=== PATIENT | female | born 1970 | race Caucasian/White ===

== ENCOUNTER 2018-11-27 11:24 | Outpatient (REF) | payer BC, SELFPAY | END 2018-11-27 11:44 | LOC: LBN 11:24 | PROVIDERS: PCP Internal Medicine; Visit Provider Internal Medicine | DX: N89.8 Other specified noninflammatory disorders of vagina (principal) | CPT/HCPCS: 87480; 87510; 87660 ==

== ENCOUNTER 2019-11-15 09:15 | Outpatient (CLI) | payer BC, SELFPAY ==
[2019-11-22 10:20] LABS: SARS-CoV-2 RNA Undetected (Undetected)
== END 2019-11-15 09:35 ==
PROVIDERS: PCP Internal Medicine; Visit Provider Nurse Practitioner
DX: Z11.59 Encounter for screening for other viral diseases (principal)
CPT/HCPCS: U0003

== ENCOUNTER 2020-05-12 01:41 | Outpatient (CLI) | payer BC, SELFPAY ==
--- NOTE | 2020-05-12 | DI.RAD_ITS ---
EXAM: XR EYE FOREIGN BODY INDICATION: PRE MRI CLEARANCE,PTOSIS RT EYELID,H02.401. COMPARISON: No exams were available for comparison TECHNIQUE: 2D digital imaging was performed. FINDINGS: No radiopaque foreign bodies are seen in the orbits. IMPRESSION: DATA REPOSITORY: RADIATION DOSE DELIVERED:
--- NOTE | 2020-05-12 09:15 | DI.MRI_ITS ---
CLINICAL HISTORY: HORNERS SYNDROME,HEADACHES,PTOSIS RT EYELID,ANISOCORIA. TECHNIQUE: Multiplanar multisequence MRA of the brain was performed. COMPARISON: None. FINDINGS: Carotid Arteries: No aneurysm, occlusion or significant stenosis. Anterior Cerebral Arteries: Right: No aneurysm, occlusion or significant stenosis. Left: No aneurysm, occlusion or significant stenosis. Middle Cerebral Arteries: Right: No aneurysm, occlusion or significant stenosis. Left: No aneurysm, occlusion or significant stenosis. Posterior Cerebral Arteries: Right: No aneurysm, occlusion or significant stenosis. The right PCOM is present which is a normal v ariant. Left: No aneurysm, occlusion or significant stenosis. The left STATISTICAL PROGRAMMER ANALYST arises from the left PCOM which i s a normal variant. Vertebral Arteries: Right: No aneurysm, occlusion or significant stenosis. There is a dominant right vertebral artery. Left: No aneurysm, occlusion or significant stenosis. Basilar Artery: No aneurysm, occlusion or significant stenosis. IMPRESSION: No aneurysm, occlusion or significant stenosis. DATA REPOSITORY:
--- NOTE | 2020-05-12 10:05 | DI.MRI_ITS ---
EXAM: MR BRAIN WO/W CLINICAL HISTORY: HORNERS SYNDROME,G90.2,HEADACHES,R51.9,PTOSIS RT EYELID,H02.401 TECHNIQUE: Multiplanar multisequence MRI of the brain was performed. CONTRAST MATERIAL: IV Contrast: 15 ML of Dotarem contrast administered. COMPARISON: MR MR ANGIO BRAIN WO from 05/12/2020 FINDINGS: VENTRICLES AND EXTRA AXIAL SPACES: Normal in size and morphology for the patient's age. HEMORRHAGE: None. CEREBRAL PARENCHYMA: No focus of restricted diffusion to suggest acute infarct. No space-occupying le shante identified. MIDLINE SHIFT: None. BRAINSTEM/CEREBELLUM: Normal. CALVARIUM: Normal. ENHANCEMENT: No suspicious enhancement identified. VISUALIZED PARANASAL SINUSES/MASTOIDS: Clear. STEBBINS OF [place]: Normal flow void. PITUITARY GLAND: Unremarkable. OTHER FINDINGS: IMPRESSION: Unremarkable MRI of the brain. DATA REPOSITORY:
[2020-05-12] MEDS: Gadoterate meglumine 20 ML VIAL 15 ML IVP (10:11)
== END 2020-05-12 02:01 ==
PROVIDERS: PCP Internal Medicine; Visit Provider Ophthalmology Neuro-ophthalmology
DX: G90.2 Horner's syndrome (principal); R51.9 Headache, unspecified; H02.401 Unspecified ptosis of right eyelid
CPT/HCPCS: 70544; 70553; 70030

== ENCOUNTER 2020-05-15 04:25 | Outpatient (CLI) | payer BC, SELFPAY ==
--- NOTE | 2020-05-15 | DI.MRI_ITS ---
EXAM: MR ANGIO NECK W CLINICAL HISTORY: HORNERS SYNDROME,HEADACHE BEHIND THE EYES,PTOSIS RT EYELID,ANISOCORIA. TECHNIQUE: Multiplanar multisequence MRA of the Neck was performed. COMPARISON: No exams were available for comparison FINDINGS: Common Carotid: Right: No dissection, occlusion or significant stenosis. Left: No dissection, occlusion or significant stenosis. External Carotid: Right: No evidence of occlusion or significant stenosis. Left: No evidence of occlusion or significant stenosis. Extracranial internal Carotid: Right: No dissection, occlusion or significant stenosis. Left: No dissection, occlusion or significant stenosis. Vertebral Artery: Right: No dissection, occlusion or significant stenosis. There is a dominant right vertebral artery. Left: No dissection, occlusion or significant stenosis. The left vertebral artery is small in caliber throughout but otherwise unremarkable. The visualized paraspinal soft tissues are unremarkable. IMPRESSION: 1. No evidence of dissection, occlusion or significant stenosis. 2. There is a dominant right vertebral artery. The left vertebral artery is small in caliber through out but otherwise unremarkable. DATA REPOSITORY:
[2020-05-15] MEDS: Gadoterate meglumine 20 ML VIAL 15 ML IVP (10:08)
== END 2020-05-15 04:45 ==
PROVIDERS: PCP Internal Medicine; Visit Provider Ophthalmology Neuro-ophthalmology
DX: G90.2 Horner's syndrome (principal); R51.9 Headache, unspecified; H02.401 Unspecified ptosis of right eyelid
CPT/HCPCS: 70548

== ENCOUNTER 2020-08-18 03:39 | Outpatient (CLI) | payer BC, SELFPAY ==
[2020-08-18 08:06] LABS: HCT 39.7 % (36.0-46.0); HGB 13.1 g/dL (11.2-15.7); MCH 30.7 pg (27.0-33.0); MPV 9.5 fL (8.0-11.0); Platelet Count 302 10^3/uL (130-400); RBC 4.27 10^6/uL (3.93-5.22); RDW 12.4 % (11.7-14.6); RDW-SD 42.7 fL
[2020-08-18 09:29] LABS: ALT 34 U/L (14-59); AST 20 U/L (15-37); Albumin 3.8 g/dL (3.4-5.0); Alkaline Phosphatase 117 U/L (46-116); Anion Gap 6.2 mmol/L (3-11); BUN 13 mg/dL (7-18); Bilirubin, Total 0.2 mg/dL (0.2-1.0); CO2 29.8 mmol/L (21.0-32.0); Calcium 9.9 mg/dL (8.5-10.1); Calculated LDL 141 mg/dL (<100); Chloride 105 mmol/L (98-107); Cholesterol 230 mg/dL (<200); Estimated GFR 58.93 (mL/min/1.73m2); Glucose 103 mg/dL (74-106); HDL Cholesterol 77 mg/dL (40-60); Potassium 4.3 mmol/L (3.5-5.1); Sodium 141 mmol/L (136-145); Total Protein 7.2 g/dL (6.4-8.2); Triglyceride 63 mg/dL (<150)
[2020-08-19 10:10] LABS: HIV-1/2 Ag & Ab Screen Negative (Negative)
[2020-08-19 10:23] LABS: Hepatitis C Ab w Rflx HCV PCR Negative (Negative)
[2020-08-20 05:26] LABS: Vitamin D 25 Total 29.7 ng/mL (30-100)
== END 2020-08-18 03:40 | disposition home or self-care (01) ==
LOC: LBO 03:39
PROVIDERS: PCP Internal Medicine; Visit Provider Internal Medicine
DX: E04.9 Nontoxic goiter, unspecified (principal); Z13.220 Encounter for screening for lipoid disorders; Z13.228 Encounter for screening for other metabolic disorders; Z13.21 Encounter for screening for nutritional disorder; Z13.0 Encounter for screening for diseases of the blood and blood-forming organs and certain disorders involving the immune mechanism; Z11.4 Encounter for screening for human immunodeficiency virus [HIV]; Z11.59 Encounter for screening for other viral diseases
CPT/HCPCS: 36415; 80053; 80061; 82306; 85027; 86803; 87389; 84443

== ENCOUNTER 2020-09-10 02:30 | Outpatient (CLI) | payer BC, SELFPAY ==
--- NOTE | 2020-09-10 07:30 | DI.MAMMO_ITS ---
Exam(s) MAMMO SCREENING EXAM: MAMMO SCREENING CLINICAL HISTORY: screening,Z12.39 TECHNIQUE: Mammograms were interpreted according to the usual protocol including computer analysis w [facility] CAD system, tomosynthesis and C-view imaging. COMPARISON: FINDINGS: The breasts are of moderate density with fairly symmetrical distribution fibroglandular tissue. No d ominant mass or clumped microcalcification is identified in either breast. Examination is compared w [facility] prior mammogram of March 2014. There is a new lobulated nodule of the retroareolar portion of the right breast about 3 cm from the nipple, this measures about 6 millimeters in diameter, the bord er is not ideally defined. Additional evaluation with spot compression views and breast ultrasound r ecommended for further characterization. No other significant change seen. IMPRESSION: Additional mammographic views of the right breast and right breast ultrasound requested as described above to evaluate a retroareolar lobulated nodule. BI-RADS Category 0 - Assessment Incomplete: Need additional imaging evaluation Breast Density - Category B - Scattered areas of fibroglandular density
== END 2020-09-10 02:50 ==
PROVIDERS: PCP Internal Medicine; Visit Provider Internal Medicine
DX: Z12.31 Encounter for screening mammogram for malignant neoplasm of breast (principal); R92.8 Other abnormal and inconclusive findings on diagnostic imaging of breast
CPT/HCPCS: 77063; 77067

== ENCOUNTER 2020-09-15 02:25 | Outpatient (CLI) | payer BC, SELFPAY ==
--- NOTE | 2020-09-15 | DI.US_ITS ---
Exam(s) MG MAMMO SCREEN CALL BACK UNI US BREAST RT LIMITED EXAM: MG MAMMO SCREEN CALL BACK UNI CLINICAL HISTORY: F/U ABNL MAMMO, RETROAREOLAR LOBULATED NODULE ABOUT 3 CM FROM NIPPLE TECHNIQUE: Mammograms were interpreted according to the usual protocol including computer analysis w ith CAD system, tomosynthesis and C-view imaging. COMPARISON: FINDINGS: Additional mammographic views of the right breast and right breast ultrasound are interpreted in conj unction. These examinations were obtained to evaluate lobulated 7 millimeter in diameter nodule seen on recent mammogram. Spot compression views confirm a well-circumscribed lobulated nodule. Breast ultrasound shows a group of small cysts corresponding in location to the mammographically identified mass. No Doppler abnormality identified in this area. The group of cysts cysts has an overall measu rement 7 millimeters and contains some internal echoes. No additional mass identified. IMPRESSION: Findings as described above are consistent with benign process, apparently a group of small cysts. F ollow-up mammogram of the right breast recommended in 6 months. BI-RADS Category 3 - 6 month - Probably Benign Finding: Recommend follow-up mammography in 6 months Breast Density - Category B - Scattered areas of fibroglandular density
== END 2020-09-15 02:45 ==
PROVIDERS: PCP Internal Medicine; Visit Provider Internal Medicine
DX: Z12.31 Encounter for screening mammogram for malignant neoplasm of breast (principal); R92.8 Other abnormal and inconclusive findings on diagnostic imaging of breast; N60.11 Diffuse cystic mastopathy of right breast
CPT/HCPCS: 76642; 77063; 77067

== ENCOUNTER 2021-03-18 01:25 | Outpatient (CLI) | payer BC, SELFPAY ==
--- NOTE | 2021-03-18 09:30 | DI.MAMMO_ITS ---
Exam(s) MG MAMMO DIAGNOSTIC UNI EXAM: MAMMO DIAGNOSTIC UNI CLINICAL HISTORY: F/U ABNL MAMMO, 6 MO F/U, RE-EVLAUATE CYSTS/NODULES. TECHNIQUE: Craniocaudal and mediolateral oblique Full Field Digital Mammography views of the breast with Computer Aided Diagnosis followed by Tomosynthesis. COMPARISON: 2013 through September 2020 FINDINGS: Mammography/Tomosynthesis: Masses/Architectural Distortion: Stable smoothly marginated lobulated nodule. Microcalcifictions: No suspicious pleomorphic-type are seen. Skin Thickening/Nipple Retraction: None. IMPRESSION: 1. No evidence of malignancy is noted. 2. Unless there is more urgent need, follow-up screening mammography is recommended, as per [employer] guidelines. 3. The findings were discussed with the patient on the date of the examination. BI-RADS Category 2 - Benign Findings Breast Density - Category B - Scattered areas of fibroglandular density A negative radiographic report should not delay biopsy if a dominant or clinically suspicious mass is present. Up to ten percent of cancers are not identified on mammography. A negative report may reinforce clinical impression. Adenosis and dense breasts may obscure an underlying neoplasm. False positive reports average 6 to 10%. Patient will receive a letter notifying them of these results.
== END 2021-03-18 01:45 ==
PROVIDERS: PCP Internal Medicine; Visit Provider Internal Medicine
DX: N63.10 Unspecified lump in the right breast, unspecified quadrant (principal)
CPT/HCPCS: 77061; 77065; G0279

== ENCOUNTER 2021-06-16 13:04 | Outpatient (REF) | payer BC, SELFPAY ==
[2021-06-17 14:11] LABS: COVID-19 RT-PCR UVMMC Result Negative (Negative)
== END 2021-06-16 13:05 | disposition home or self-care (01) ==
LOC: NCHCN 13:04
PROVIDERS: PCP Internal Medicine; Visit Provider Physician Assistant Medical
DX: Z20.822 Contact with and (suspected) exposure to COVID-19 (principal); R19.7 Diarrhea, unspecified
CPT/HCPCS: U0003

== ENCOUNTER 2021-08-09 19:50 | Emergency (ER) | payer BC, SELFPAY ==
[2021-08-09 20:17] VITALS: RESP 14
--- NOTE | 2021-08-09 21:00 | DI.CT_ITS ---
Exam(s) CT NECK W EXAM: CT NECK W CLINICAL HISTORY: Thyroid nodules, trouble swallowing. TECHNIQUE: Imaging Protocol: Axial computed tomography images with coronal and sagittal reformatted images were created and reviewed. CONTRAST MATERIAL: Intravenous: Omnipaque 350 Contrast volume:100mL COMPARISON: US US THYROID from 08/27/2020 FINDINGS: Orbits and orbital soft tissues: Within normal limits. Visualized paranasal sinuses: Within normal limits. Nasopharynx: Within normal limits. Oropharynx: Within normal limits. Hypopharynx: Within normal limits. Larynx: Within normal limits. Retropharyngeal space: Within normal limits. Parotids/submandibular: Within normal limits. Thyroid gland: Several tiny hypodensities within the thyroid gland. The largest is in the left lobe and measures 1.5 cm long. This is consistent with a left thyroid nodule seen on the ultrasound from 08/27/2020. Lymphadenopathy: There is scattered lymph nodes seen along the level one to level three all measurin g less than 8 mm in short axis diameter which are physiologic in nature. Trachea: Within normal limits. No narrowing or tracheal deviation. Lung apices: Within normal limits. Bones: Within normal limits for the patient's age. Carotids/Jugular: Within normal limits. Soft tissues: Within normal limits. IMPRESSION: 1. No acute abnormality. The airway is patent. No tracheal narrowing or deviation. 2. Multiple thyroid nodules. These are best characterized on the ultrasound of the neck from 08/28/19. RADIATION DOSE DELIVERED: 501.15mGy.cm Total DLP DATA REPOSITORY: All CT scans at this facility are submitted to the National Radiology Data Registry (NRDR) Dose Index Registry (DIR) with the [employer] (ACR). RADIATION OPTIMIZATION: All CT scans at this facility use at least one of these dose optimization te chniques: automated exposure control; mA and/or kV adjustment per patient size (includes targeted exa ms where dose is matched to clinical indication); or iterative reconstruction.
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
[2021-08-09] MEDS: Dexamethasone 10 MG/ML VIAL PO (21:21)
[2021-08-09 21:30] LABS: Abs Immature Grans 0.01 10^3/uL (0.0-0.06); Absolute Basophil Count 0.04 10^3/uL (0.0-0.2); Absolute Eosinophil Count 0.11 10^3/uL (0.0-0.7); Absolute Lymphocyte Count 2.65 10^3/uL (1.2-3.4); Absolute Monocyte Count 0.45 10^3/uL (0.1-0.8); Absolute Neutrophil Count 3.55 10^3/uL (1.2-6.7); Basophils % 0.6; Eosinophils % 1.6; HCT 43.8 % (36.0-46.0); HGB 14.1 g/dL (11.2-15.7); Immature Grans % 0.1; Lymphocytes % 38.9; MCH 29.4 pg (27.0-33.0); MCHC 32.2 % (32.0-36.0); MCV 91.4 fL (80-95); MPV 10.1 fL (8.0-11.0); Monocytes % 6.6; Neutrophils % 52.2; Nucleated RBC 0 %; Platelet Count 344 10^3/uL (130-400); RBC 4.79 10^6/uL (3.93-5.22); RDW 12.5 % (11.7-14.6); RDW-SD 41.9 fL; WBC 6.81 10^3/uL (4.4-10.8)
[2021-08-09 21:52] LABS: ALT 39 U/L (14-59); AST 24 U/L (15-37); Albumin 4.4 g/dL (3.4-5.0); Alkaline Phosphatase 131 U/L (46-116); Anion Gap 7.5 mmol/L (3-11); BUN 13 mg/dL (7-18); Bilirubin, Total 0.3 mg/dL (0.2-1.0); CO2 28.5 mmol/L (21.0-32.0); CREATININE 1.1 mg/dL (0.55-1.02); Calcium 10.5 mg/dL (8.5-10.1); Chloride 101 mmol/L (98-107); Estimated GFR 52.58 (mL/min/1.73m2); Glucose 96 mg/dL (74-106); Potassium 3.7 mmol/L (3.5-5.1); Sodium 137 mmol/L (136-145); Total Protein 8.4 g/dL (6.4-8.2)
[2021-08-09] MEDS: Omnipaque 350 MG/ML 100 ML BTL IJ (21:57)
[2021-08-09] MEDS: Normal Saline Flush 10 ML SYR IVP (21:58)
--- NOTE | 2021-08-09 21:59 | DI.VRAD_ITS ---
PROCEDURE INFORMATION: Exam: CT Neck With Contrast Exam date and time: 08/09/2021 9:32 PM Age: 51 years old Clinical indication: Other: Thyroid nodules, trouble swallowing TECHNIQUE: Imaging protocol: Computed tomography images of the neck with contrast. Radiation optimization: All CT scans at this facility use at least one of these dose optimization techniques: automated exposure control; mA and/or kV adjustment per patient size (includes targeted exams where dose is matched to clinical indication); or iterative reconstruction. Contrast material: OMNIPAQUE 350; Contrast volume: 100 ml; Contrast route: INTRAVENOUS (IV); COMPARISON: US THYROID 08/27/2020 12:57 PM FINDINGS: Mastoid air cells: Visualized mastoid air cells are well aerated. Paranasal sinuses: Visualized paranasal sinuses are well aerated. Nasopharynx: Unremarkable. Oropharynx: Unremarkable. No significant tonsillar enlargement. Hypopharynx: Unremarkable. Larynx: Unremarkable. Normal epiglottis. Retropharyngeal space: Unremarkable. Submandibular/Parotid glands: Unremarkable. Thyroid: The thyroid gland is normal in size and contains multiple subcentimeter hypoattenuating nodules. Lymph nodes: Unremarkable. No pathologically enlarged lymph nodes. Trachea: Patent and unremarkable in appearance. Lungs: Dependent hypoventilatory changes. Otherwise unremarkable as visualized. Bones/joints: Degenerative changes in the cervical spine. No suspicious osseous lesions. Soft tissues: Unremarkable. No significant soft tissue swelling. No soft tissue mass or fluid collection IMPRESSION: 1. No acute or suspicious abnormality in the soft tissues of the neck. The airway is patent. No significant soft tissue swelling. 2. Normal-sized thyroid gland containing multiple subcentimeter thyroid nodules, better characterized on the comparison thyroid ultrasound. Dictated and Authenticated by: Araceli Farrell MD. Ordering:MICHELLE Carey MD
[2021-08-10 00:35] VITALS: RESP 14
[2021-08-11 11:35] LABS: COVID-19 RT-PCR UVMMC Result Negative (Negative)
== END 2021-08-10 00:32 | disposition home or self-care (01) ==
PROVIDERS: Emergency Provider Registered Nurse Emergency; PCP Internal Medicine
DX: J02.9 Acute pharyngitis, unspecified (principal); E04.2 Nontoxic multinodular goiter; Z20.822 Contact with and (suspected) exposure to COVID-19
CPT/HCPCS: 36415; 70491; 80053; 87880; 99284; 99285; U0003; 85025; 87081; J1100; J3490

== ENCOUNTER 2021-12-15 03:14 | Outpatient (CLI) | payer OTHER, SELFPAY ==
[2021-12-16 23:23] LABS: Parathyroid Hormone,Intact 51 pg/mL (19-88)
== END 2021-12-15 03:15 | disposition home or self-care (01) ==
LOC: LBO 03:14
PROVIDERS: PCP Internal Medicine; Visit Provider Family Medicine
DX: E83.52 Hypercalcemia (principal)
CPT/HCPCS: 36415; 83970

== ENCOUNTER 2022-01-25 16:17 | Outpatient (REF) | payer OTHER, SELFPAY ==
--- NOTE | 2022-01-25 15:50 | PAPFT_PTH ---
PATIENT: Barbara Braxton LOC: [facility] U#:[id number] AGE/SX: 52/F ROOM: RE01/25/[address]: Wilfredo Morgan DO : 1970 BED: DIS: 01/25/2022 SPEC #: [id number] RECD: 01/26/22 13:21 STATUS: REUBEN REQ #: [id number] CRISTAL: 01/25/22 15:[address]: Wilfredo Morgan DEPT: [facility] Cytology RECD BY: Ashleigh Jeff ENTERED: 01/26/22 13:22 SP TYPE: PAPFT OTHR DR: Dahlia Gurrola MD Tissues: 1 - CX/ENDOCX FOR PAP SMEARS Procedures: PAP THIN PREP/UVM Screening HPV DNA PROBE Comments: [id number]
== END 2022-01-25 16:18 | disposition home or self-care (01) ==
LOC: LBN 16:17
PROVIDERS: PCP Internal Medicine; Visit Provider Family Medicine
DX: Z12.4 Encounter for screening for malignant neoplasm of cervix (principal); Z11.51 Encounter for screening for human papillomavirus (HPV)
CPT/HCPCS: 88142; 87624

== ENCOUNTER → 2022-01-26 12:30 | Outpatient (CLI) | payer OTHER, SELFPAY ==
--- NOTE | 2022-01-26 13:45 | DI.RAD_ITS ---
Exam(s) XR KNEE RT 3V AP,LAT,NINA EXAM: XR KNEE RT 3V AP,LAT,NINA CLINICAL HISTORY: Likely LCL tear,? Fx, rt knee pain, m25.561. TECHNIQUE: 2D digital imaging was performed. COMPARISON: No exams were available for comparison FINDINGS: 3 views No evidence of fracture nor obvious joint effusion. Bone density normal. No osseous lesions. No hank int space narrowing. IMPRESSION: No significant findings. DATA REPOSITORY: RADIATION DOSE DELIVERED:
== END ==
PROVIDERS: PCP Family Medicine; Visit Provider Family Medicine
DX: M25.561 Pain in right knee (principal)
CPT/HCPCS: 73562

== ENCOUNTER 2022-01-28 07:29 | Emergency (ER) | payer OTHER, SELFPAY ==
[2022-01-28 07:39] VITALS: BP 149/73; PULSE 90; RESP 20; TEMP 36.6; O2SAT 98
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
[2022-01-28] MEDS: CLINDAMYCIN 600 MG/50 ML BAG 100 MG IVPB (08:10)
[2022-01-28] MEDS: Ketorolac 15 MG/ML VIAL IVP (08:10)
[2022-01-28 08:18] LABS: Abs Immature Grans 0.02 10^3/uL (0.0-0.06); Absolute Basophil Count 0.03 10^3/uL (0.0-0.2); Absolute Eosinophil Count 0.12 10^3/uL (0.0-0.7); Absolute Lymphocyte Count 1.47 10^3/uL (1.2-3.4); Absolute Monocyte Count 0.51 10^3/uL (0.1-0.8); Absolute Neutrophil Count 7.02 10^3/uL (1.2-6.7); Basophils % 0.3; Eosinophils % 1.3; HCT 39.2 % (36.0-46.0); HGB 12.7 g/dL (11.2-15.7); Immature Grans % 0.2; MCH 29.6 pg (27.0-33.0); MCHC 32.4 % (32.0-36.0); MCV 91 fL (80-95); MPV 9.5 fL (8.0-11.0); Monocytes % 5.6; Neutrophils % 76.6; Platelet Count 306 10^3/uL (130-400); RBC 4.29 10^6/uL (3.93-5.22); RDW 12.6 % (11.7-14.6); RDW-SD 42.1 fL; WBC 9.17 10^3/uL (4.4-10.8)
[2022-01-28] MEDS: Ondansetron 4 MG/2 ML VIAL IVP (08:29)
[2022-01-28] MEDS: MORPHine 4 MG/ML SYR IVP (08:29)
[2022-01-28] MEDS: Acetaminophen 325 MG TAB 650 MG PO (09:19)
[2022-01-28 10:00] LABS: ALT 28 U/L (14-59); AST 14 U/L (15-37); Albumin 3.6 g/dL (3.4-5.0); Alkaline Phosphatase 131 U/L (46-116); Anion Gap 6.6 mmol/L (3-11); BUN 10 mg/dL (7-18); Bilirubin, Total 0.4 mg/dL (0.2-1.0); CO2 28.4 mmol/L (21.0-32.0); CREATININE 0.9 mg/dL (0.55-1.02); Calcium 10.4 mg/dL (8.5-10.1); Chloride 105 mmol/L (98-107); Glucose 102 mg/dL (74-106); Potassium 3.5 mmol/L (3.5-5.1); Sodium 140 mmol/L (136-145); Total Protein 7.5 g/dL (6.4-8.2)
[2022-01-28 10:37] VITALS: BP 121/64; PULSE 75; RESP 16; TEMP 36.6; O2SAT 98
--- NOTE | 2022-01-29 07:23 | NUR.NOTE ---
Nursing Note: Pt called ED stating that the antibiotic she was sent home with yesterday has caused her nausea/vomiting. She is unsure if she ate before taking the antibiotic dose. She was advised to try eating something and waiting before taking another dose to see if it helps. She was told if her symptoms worsen and she feels like she needs to be seen that she can come back to the ED.
== END 2022-01-28 10:40 | disposition home or self-care (01) ==
PROVIDERS: Emergency Provider Emergency Medicine; PCP Family Medicine
DX: L02.415 Cutaneous abscess of right lower limb (principal); L03.115 Cellulitis of right lower limb; Z87.891 Personal history of nicotine dependence
CPT/HCPCS: 10060; 36415; 80053; 87040; 96365; 96375; 99284; 85025; J1885; J2270; J2405

== ENCOUNTER 2022-02-09 17:18 | Outpatient (REF) | payer OTHER, SELFPAY | END 2022-02-09 17:19 | disposition home or self-care (01) | LOC: LBN 17:18 | PROVIDERS: PCP Family Medicine; Visit Provider Physician Assistant Medical | DX: L03.115 Cellulitis of right lower limb (principal) | CPT/HCPCS: 87070; 87205 ==

== ENCOUNTER 2022-10-17 13:22 | Outpatient (CLI) | payer OTHER, SELFPAY ==
[2022-10-17 12:24] LABS: TSH (W/Ref FT4) 0.66 uIU/mL (0.36-3.74)
== END 2022-10-17 13:23 | disposition home or self-care (01) ==
LOC: LBO 13:25
PROVIDERS: PCP Family Medicine; Visit Provider Otolaryngology
DX: E04.2 Nontoxic multinodular goiter (principal)
CPT/HCPCS: 36415; 84443

== ENCOUNTER 2022-11-17 15:55 | Emergency (ER) | payer OTHER, SELFPAY ==
[2022-11-17 16:04] VITALS: BP 139/88; PULSE 78; RESP 16; TEMP 36.8; O2SAT 98
--- NOTE | 2022-11-17 17:00 | RT.EKG_ITS ---
APPROVED REPORT Exam: Resting ECG Reason for Exam: dizzy Patient Location: E HR:76 bpm ECG Measurements Heart Rate 76 AXIS VT 148 P 49 QRSd 143 QRS 93 QT 410 T 3 QTc 462 Conclusion Sinus rhythm...normal P axis, V-rate 60- 99 RBBB and LPFB...QRSd >120mS, axis(90,210)
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
[2022-11-17] MEDS: Ketorolac 30 MG/ML VIAL IVP (17:51)
[2022-11-17] MEDS: Prochlorperazine 10 MG/2 ML VIAL IVP (17:52)
[2022-11-17] MEDS: diphenhydrAMINE 50 MG/ML VIAL 25 MG IVP (17:52)
[2022-11-17 19:55] VITALS: BP 133/78; PULSE 64; RESP 18; O2SAT 97
== END 2022-11-17 20:05 | disposition home or self-care (01) ==
PROVIDERS: Emergency Provider Emergency Medicine; PCP Family Medicine
DX: G43.909 Migraine, unspecified, not intractable, without status migrainosus (principal); I45.2 Bifascicular block
CPT/HCPCS: 36415; 93005; 96374; 96375; 99283; 93010; J0780; J1200; J1885

== ENCOUNTER 2022-11-22 01:32 | Outpatient (CLI) | payer OTHER, SELFPAY ==
--- NOTE | 2022-11-22 07:45 | DI.US_ITS ---
Exam(s) US NEEDLE LOCAL OTHER WO RAD EXAM: tr 5 lesion,multinodular goiter, ultrasound guided bx,e04.2 COMPARISON: No exams were available for comparison TECHNIQUE: Ultrasound performed using standard protocol. FINDINGS: Sonography was provided for Dr. Sheffield during the performance of a ultrasound-guided thyroid biopsy. Please refer to the procedure report for complete details. DATA REPOSITORY:
--- NOTE | 2022-11-22 12:40 | PAPNONF_PTH ---
PATIENT: Barbara Braxton LOC: [facility] U#:[id number] AGE/SX: 52/F ROOM: RE11/22/[address]: Steve Sheffield MD : 1970 BED: DIS: 11/22/2022 SPEC #: [id number] RECD: 11/22/22 13:15 STATUS: REUBEN REQ #: [id number] CRISTAL: 11/22/22 12:[address]: Steve Sheffield DEPT: [facility] Cytology RECD BY: Valeria Bokyin ENTERED: 11/22/22 13:17 SP TYPE: CRYSTAL CHUA DR: Wilfredo Morgan DO Tissues: 1 - BODY FLUID CYTO-FINE NEEDLE ASPIRATE-[facility] Procedures: BODY FLUID CYTO-FINE NEEDLE ASPIRATE-[facility] Comments: [id number] (PATH FNA CONSULT) (REFRIGERATED)
--- NOTE | 2022-11-22 13:06 | W.PROCNOTE ---
Date of service: 11/22/22 Time of Service: 13:06 Procedure Note Date of procedure: 11/22/22 Procedure: Ultrasound-guided FNA, left thyroid nodule, pathology present Surgeon/Proceduralist/Physician: Steve Sheffield Procedure Diagnosis: Thyroid nodule, TR 5 greater than 1 cm Procedure Indications: Patient with a left-sided TR 5 lesion measuring greater than 1 cm in diameter. Options were explained to the patient regarding further management. She elected undergo the above procedure. Consent was filled out and signed prior to the procedure Procedure Description: The patient was positioned in a supine position with her head slightly extended and prepped and draped in appropriate fashion. Ultrasound was used to localize both nodules in the left thyroid. The upper 1 which had previously measured slightly greater than 1 cm in 1 dimension and less than 1 cm in the other 2 dimensions, now measured less than 1 cm in all dimensions. As result, the decision was made not to biopsy this as it did not meet biopsy criteria. Attention was therefore turned to the 1.5 cm nodule. 1% lidocaine with 1/100,000 epinephrine was injected in the skin and subcutaneous tissues overlying the nodule. Using the ultrasound for guidance, a 25-gauge needle was passed into the thyroid nodule repeatedly, and the specimen handed to pathology. Dr. Mancilla confirmed adequate cellularity and then 2 additional samples were drawn for potential Afirma testing. There is no significant bleeding. After ensuring adequate hemostasis, a Band-Aid was applied to the skin overlying the puncture site. The patient was allowed to slowly sit up and ambulate. Her vital signs remained stable. She will remove the bandage this afternoon. She will use ibuprofen or Tylenol for any discomfort. She will call if she does not hear from me within 1 week with regard to pathology. She had no further questions. She is comfortable with the plan.
== END 2022-11-22 01:52 ==
LOC: DI 01:33
PROVIDERS: PCP Family Medicine; Visit Provider Otolaryngology
DX: E04.2 Nontoxic multinodular goiter (principal)
CPT/HCPCS: 76942; 88104

== ENCOUNTER 2023-02-03 13:57 | Outpatient (RCR) | payer OTHER, SELFPAY ==
--- NOTE | 2023-02-03 13:45 | HOLTER_ITS ---
APPROVED REPORT Conclusion This is a 48-hour Holter monitor ordered for palpitations Rhythm throughout is sinus with an average heart rate of 81. Maximum was 126, minimum 54 There were rare isolated ventricular ectopic beats There were no supraventricular dysrhythmias Symptoms of fluttering correlated with PVCs, though the majority of PVCs were asymptomatic
== END 2023-02-04 23:59 | disposition home or self-care (01) ==
LOC: CARDOPNVT 13:57
PROVIDERS: PCP Family Medicine; Visit Provider Family Medicine
DX: R00.2 Palpitations (principal)
CPT/HCPCS: 93225

== ENCOUNTER 2023-02-13 16:56 | Outpatient (RCR) | payer OTHER, SELFPAY | END 2023-03-07 23:59 | disposition home or self-care (01) | LOC: CARDOPNVT 16:56 | PROVIDERS: Visit Provider Family Medicine | DX: R00.2 Palpitations (principal) | CPT/HCPCS: 93226 ==

== ENCOUNTER → 2023-03-02 03:07 | Outpatient (CLI) | payer OTHER, SELFPAY ==
--- NOTE | 2023-03-02 08:30 | DI.MAMMO_ITS ---
Exam(s) MAMMO SCREENING EXAM: MAMMO SCREENING CLINICAL HISTORY: screening,Z12.39 TECHNIQUE: Mammograms were interpreted according to the usual protocol including computer analysis w [employer] CAD system, tomosynthesis and C-view imaging. COMPARISON: 2013 through 2020 FINDINGS: The breasts are composed of mainly fatty density , Breast Density category A. No suspicious masses or suspicious microcalcifications are seen. No change in small lobulated nodule in the right breast found represent a group of cysts by prior ultrasound. No skin thickening or abnormal axillary lymph nodes are seen. There has been no significant change from prior exams. IMPRESSION: BI-RADS Category 2 - Benign Findings Yearly screening mammography is recommended. Breast Density - Category A, fatty density. A negative radiographic report should not delay biopsy if a dominant or clinically suspicious mass is present. Up to ten percent of cancers are not identified on mammography. A negative report may reinforce clinical impression. Adenosis and dense breasts may obscure an underlying neoplasm. False positive reports average 6 to 10%. Patient will receive a letter notifying them of these results.
--- NOTE | 2023-03-02 08:42 | DI.CTLCSR_ITS ---
Exam(s) CT CHEST LUNG CANCER SCREEN EXAM: CT CHEST LUNG CANCER SCREEN CLINICAL HISTORY: Screening for lung cancer,FORMER SMOKER, Z87.891 TECHNIQUE: Imaging Protocol: Axial computed tomography images with coronal and sagittal reformatted images were created and reviewed. Low dose screening protocol. COMPARISON: No exams were available for comparison FINDINGS: Tracheobronchial tree: No bronchiectasis or mucus plugging.. Mediastinum and Devora: No dominant adenopathy or fluid collection. Pulmonary parenchyma: No consolidation or dominant measurable mass. Mild emphysematous changes. Lung Nodules: 3 millimeter nodule right upper lobe. 3 millimeter nodule medial right lower lobe. 5 millimeter average diameter nodule right lower lobe. 5 millimeter average diameter nodule medial rig ht lower lobe. Pleura: No effusion. No pneumothorax. Heart: The heart is not dilated. No coronary artery calcifications are seen. Aorta: Thoracic aorta non-dilated. Upper abdomen: Unremarkable. Bones: Unremarkable for age. Soft Tissues: Unremarkable. IMPRESSION: Small bilateral pulmonary nodules. Lung RADS Cat 2 - Benign Appearance / Behavior: Nodules with a very low likelihood of becoming a clin ically active cancer due to size or lack of growth Lung-RADS 1.0 CATEGORIES: Category 0 - Prior chest CT exam(s) being located for comparison. Category 1 - Annual screening in 12 months. No nodules or definitely benign nodules. Category 2 - Annual screening in 12 months. Benign appearance. Nodules with low likelihood of becomin g active cancer. Category 3 - 6-month follow-up. Probably benign. Short-term follow-up suggested. Nodules with low lik elihood of becoming active cancer. Category 4A - 3-month follow-up and CT/PET if >8 mm in size. Suspicious finding. Findings which requi re additional testing. Category 4B - Findings which require additional testing and tissue sampling. Category 4X - Category 3 or 4 nodules with additional features or imaging findings that increases the suspicion of malignancy. Modifier S- Potentially clinically significant findings (non lung cancer) RADIATION DOSE DELIVERED: Total DLP DATA REPOSITORY: All CT scans at this facility are submitted to the National Radiology Data Registry (NRDR) Dose Index Registry (DIR) with the [employer] (ACR). RADIATION OPTIMIZATION: All CT scans at this facility use at least one of these dose optimization te chniques: automated exposure control; mA and/or kV adjustment per patient size (includes targeted exa ms where dose is matched to clinical indication); or iterative reconstruction.
== END ==
PROVIDERS: PCP Family Medicine; Visit Provider Family Medicine
DX: Z12.31 Encounter for screening mammogram for malignant neoplasm of breast (principal); Z87.891 Personal history of nicotine dependence; Z12.2 Encounter for screening for malignant neoplasm of respiratory organs; R91.1 Solitary pulmonary nodule
CPT/HCPCS: 71271; 77063; 77067

== ENCOUNTER 2023-08-24 12:18 | Emergency (ER) | payer OTHER, SELFPAY ==
[2023-08-24] VITALS (11 sets, daily range): BP systolic 136–177; BP diastolic 79–117; PULSE 73–89; RESP 12–20; TEMP 36.5–36.7; O2SAT 95–98
--- NOTE | 2023-08-24 12:15 | RT.EKG_ITS ---
APPROVED REPORT Exam: Resting ECG Reason for Exam: chest pain Patient Location: E HR:88 bpm ECG Measurements Heart Rate 88 AXIS VT 149 P 80 QRSd 140 QRS 90 QT 386 T -13 QTc 467 Conclusion Sinus rhythm...normal P axis, V-rate 60- 99 RBBB and LPFB...QRSd >120mS, axis(90,210) Physician: RBBB, no stemi, unchanged from prior
--- NOTE | 2023-08-24 12:15 | DI.RAD_ITS ---
Exam(s) XR PORTABLE CHEST AP EXAM: XR PORTABLE CHEST AP CLINICAL HISTORY: Chest Pain TECHNIQUE: 2D digital imaging was performed. COMPARISON: CT CT CHEST LUNG CANCER SCREEN from 03/02/2023 FINDINGS: Leads overlie the chest. LUNGS: Clear. No pleural abnormality seen. HEART: Normal size. AORTA: Normal diameter. BONES: Unremarkable for age. Soft tissues: Unremarkable. IMPRESSION: No acute findings. DATA REPOSITORY: RADIATION DOSE DELIVERED:
[2023-08-24] MEDS: Aspirin 81 MG CHEW 324 MG CH (12:30)
[2023-08-24 12:34] LABS: Abs Immature Grans 0.01 10^3/uL (0.0-0.06); Absolute Basophil Count 0.04 10^3/uL (0.0-0.2); Absolute Eosinophil Count 0.08 10^3/uL (0.0-0.7); Absolute Lymphocyte Count 2.37 10^3/uL (1.2-3.4); Absolute Monocyte Count 0.43 10^3/uL (0.1-0.8); Absolute Neutrophil Count 4.17 10^3/uL (1.2-6.7); Basophils % 0.6; Eosinophils % 1.1; HCT 40.9 % (36.0-46.0); HGB 13.9 g/dL (11.2-15.7); Immature Grans % 0.1; Lymphocytes % 33.4; MCH 30.1 pg (27.0-33.0); MCV 89 fL (80-95); MPV 9.1 fL (8.0-11.0); Monocytes % 6.1; Neutrophils % 58.7; Platelet Count 317 10^3/uL (130-400); RBC 4.62 10^6/uL (3.93-5.22); RDW 12.6 % (11.7-14.6); RDW-SD 40.8 fL
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
[2023-08-24] MEDS: nitroGLYcerin 0.4 MG TAB SL ×3 (12:37→13:00)
[2023-08-24 12:52] LABS: ALT 32 U/L (14-59); AST 18 U/L (15-37); Albumin 4.1 g/dL (3.4-5.0); Alkaline Phosphatase 124 U/L (46-116); Anion Gap 10.2 mmol/L (3-11); BUN 14 mg/dL (7-18); Bilirubin, Total 0.4 mg/dL (0.2-1.0); CO2 25.8 mmol/L (21.0-32.0); CREATININE 0.9 mg/dL (0.55-1.02); Calcium 10.5 mg/dL (8.5-10.1); Chloride 104 mmol/L (98-107); Estimated GFR 76.92 (mL/min/1.73m2); Glucose 101 mg/dL (74-106); Magnesium 2.1 mg/dL (1.8-2.4); PTT Activated 26.1 sec (23.6-32.8); Potassium 3.9 mmol/L (3.5-5.1); Prothrombin Time 10.3 sec (9.1-11.1); Sodium 140 mmol/L (136-145); Total Protein 8.2 g/dL (6.4-8.2)
[2023-08-24 12:53] LABS: Troponin I < 50 ng/L (< or =60)
[2023-08-24] MEDS: Omnipaque 350 MG/ML 500 ML BTL-Imaging package 100 ML IJ (13:36)
[2023-08-24] MEDS: Normal Saline - Diluent 50 ML VIAL IV (13:37)
--- NOTE | 2023-08-24 13:45 | DI.CT_ITS ---
Exam(s) CT THORAX ABD/PEL CTA EXAM: CT THORAX ABD/PEL CTA CLINICAL HISTORY: Chest Pain, HTN, SOB. TECHNIQUE: Imaging Protocol: Axial CT angiography was performed with multi-slice acquisition and m ulti-planar and/or 3D reconstructions. CONTRAST MATERIAL: Intravenous: Omnipaque 350 contrast volume:100 mL Oral: No COMPARISON: CT CT CHEST LUNG CANCER SCREEN from 03/02/2023 FINDINGS: CHEST: Tracheobronchial tree: Patent where visualized. Pulmonary parenchyma: No consolidation or dominant measurable mass. There is a stable 5 mm nodule in the medial aspect of the left lower lobe (series 6, image 385). There is a stable 5 mm nodule in the left lower lobe (series 6, image 347). There is a stable 4 mm nodule in the lateral aspect of the r ight upper lobe (series 6, image 235). No new pulmonary nodules are present. Pulmonary Arteries: No evidence of filling defect to suggest pulmonary emboli. Mediastinum and Devora: No dominant adenopathy or fluid collection. The esophagus is unremarkable. Visualized thyroid: Unremarkable. Pleura: No effusion or pneumothorax. Heart: The heart is not dilated. No coronary artery calcifications are seen. No pericardial effusion. Aorta: Thoracic aorta non-dilated. No evidence of dissection. Soft Tissues: Unremarkable. Bones: Within normal limits for the patient's age. ABDOMEN AND PELVIS: Abdomen: Celiac axis/mesenteric arteries: No evidence of occlusion or significant stenosis. Renal Arteries: No evidence of occlusion or significant stenosis. Aorta: No evidence of occlusion or significant stenosis. No aneurysm or dissection. Minimal athero sclerotic calcification is present. Pelvis: Iliac Arteries: No evidence of occlusion or significant stenosis. Mild atherosclerotic calcificatio n is present. Common Femoral Arteries: No evidence of occlusion or significant stenosis. ABDOMEN: Liver: Normal density. No measurable mass. Gallbladder and Biliary Tract: No radiodense calculus or dilation. Pancreas: Normal density, no abnormal calcifications or inflammatory process. Spleen: Normal. Adrenals: No masses seen. Kidneys: Normal size, contour and axis. No radiodense stones or obstructive uropathy. No masses seen. Bowel: No obstruction or bowel wall thickening. Appendix is unremarkable. Peritoneal Cavity: No ascites, collection or mesenteric inflammatory response. No free air. Lymph Nodes: Within normal limits. Bones: Within normal limits for the patient's age. Soft Tissues: Unremarkable. PELVIS: Bladder: Symmetric distention, no gross wall thickening. Reproductive Organs: Unremarkable as visualized. Lymph Nodes: Within normal limits. Bones: Within normal limits for the patient's age. IMPRESSION: 1. No evidence of thoracic aortic aneurysm or dissection. 2. Stable pulmonary nodules. 3. No acute abdominal or pelvic process. 4. No acute pulmonary process. RADIATION DOSE DELIVERED: 1,131.49mGy.cm Total DLP DATA REPOSITORY: All CT scans at this facility are submitted to the National Radiology Data Registry (NRDR) Dose Index Registry (DIR) with the [employer] (ACR). RADIATION OPTIMIZATION: All CT scans at this facility use at least one of these dose optimization te chniques: automated exposure control; mA and/or kV adjustment per patient size (includes targeted exa ms where dose is matched to clinical indication); or iterative reconstruction.
[2023-08-24] MEDS: MORPHine 10 MG/ML VIAL 2 MG IVP (14:38)
--- NOTE | 2023-08-24 15:00 | RT.EKG_ITS ---
APPROVED REPORT Exam: Resting ECG Reason for Exam: Repeat Patient Location: E HR:72 bpm ECG Measurements Heart Rate 72 AXIS PA 183 P 81 QRSd 144 QRS 93 QT 433 T -1 QTc 476 Conclusion Sinus rhythm...normal P axis, V-rate 60- 99 RBBB and LPFB...QRSd >120mS, axis(90,210) Physician: no stemi, RBBB, unchanged from prior
[2023-08-24 15:36] LABS: Troponin I < 50 ng/L (< or =60)
[2023-08-24] MEDS: Ketorolac 15 MG/ML VIAL IVP (15:54)
--- NOTE | 2023-08-24 16:14 | ED.PROG_ITS ---
Date of service: 08/24/23 Time of Service: 16:31 Medical Decision Making Signout accepted from Cherry Jeffery, ru JOSE. Barbara is a 53-year-old female who presented to the emergency department today for concern of midsternal chest pain radiating to left arm, accompanied by left arm numbness and shortness of breath that started acutely 1 hour prior to arrival. EKG was performed, right bundle branch block noted (present on previous EKG on 11/17/22), no changes consistent with acute ischemia. CTA was performed, no evidence of aortic aneurysm/dissection, acute pulmonary or abdominal/pelvic processes. Labs all reassuring; CBC, CMP unremarkable. Initial troponin negative, followed by negative repeat troponin. While in the emergency department care of received sublingual nitroglycerin with some improvement in symptoms. She did have return of chest pain, given 15 mg IV Toradol. 1630: I have evaluated patient, she reports she is in significant discomfort at this time, says that the chest pain is sharp, radiating from her sternal chest down to her epigastrium, with some radiation to either side of her chest. She does admit to a history of GERD, takes omeprazole daily. She has not been experiencing any acid reflux symptoms prior to onset of symptoms this morning around 11 AM, but I do have suspicion that this may be related to gastritis in light of reassuring cardiac workup. Barbara received IV famotidine, lorazepam, and GI cocktail for likely esophageal spasm/gastritis. 1730: Barbara reports full resolution of symptoms, says she is feeling much better. Symptoms most consistent with GERD/acid reflux. Advise follow-up with PCP for GERD management. In the meantime, recommend increasing dose of PPI to twice daily. Reviewed red flags indicate need for return to emergency care. Quality:[facility] Health Related Social Needs: No Data to Display Sign Out Sign Out Data: Sign Out Comment: Pending Repeat Troponin and re-eval. 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 CTA negative for PE or dissection. Last updated by Cherry Jeffery NP at 08/24/23 15:36 Discharge Plan Discharge Details Chief Complaint: Chest Pain Primary Care Provider: FELICIANO DAILEY ED Provider: Selam Ash Home Meds and New Rx's Prescriptions: No Action medical marijuana packet PO sumatriptan succinate [Imitrex] 50 mg tablet 100 mg PO ONCE Qty: 9 11RF Rx Instructions: DX: MIGRAINE HEADACHE MAY REPEAT X1 AFTER 2 HOURS IF HEADACHE REOCCURS duloxetine 30 mg capsule,delayed release(DR/EC) 60 mg PO DAILY mulin - OTC multivit. PO trazodone 150 mg tablet 225 mg PO QHS Qty: 135 3RF omeprazole 20 mg capsule,delayed release(DR/EC) 20 mg PO DAILY Qty: 30 2RF cyclobenzaprine 10 mg tablet 10 mg PO TID PRN (Reason: muscle spasm) Qty: 60 3RF
[2023-08-24] MEDS: Lidocaine 2% Viscous 15 ML CUP (16:54)
[2023-08-24] MEDS: FAMOTIDINE 20 MG in Normal Saline 100 ML 400 MG IVPB (16:54)
[2023-08-24] MEDS: Mylanta Suspension 30 ML CUP (16:55)
[2023-08-24] MEDS: LORazepam 2 MG/ML VIAL 0.5 MG IVP (16:55)
--- NOTE | 2023-08-24 17:39 | NUR.NOTE ---
Referral faxed to PCP for GERD, in 1 to 2 weeks. Nursing Note:
== END 2023-08-24 17:53 | disposition home or self-care (01) ==
PROVIDERS: Registered Nurse Emergency; Emergency Provider Nurse Practitioner Family; PCP Nurse Practitioner Family
DX: R07.9 Chest pain, unspecified (principal); K21.9 Gastro-esophageal reflux disease without esophagitis; Z87.891 Personal history of nicotine dependence
CPT/HCPCS: 00123; 71275; 80053; 93005; 96374; 96375; 99285; 71045; 74174; 83735; 84484; 85025; 85610; 85730; 93010; 99284; J1885; J2060; J2270

== ENCOUNTER 2023-09-13 16:41 | Outpatient (REF) | payer OTHER, SELFPAY ==
[2023-09-13 19:20] LABS: Calculated LDL 143 mg/dL (<100); Cholesterol 235 mg/dL (<200); HDL Cholesterol 73 mg/dL (40-60); TSH (W/Ref FT4) 1.01 uIU/mL (0.36-3.74); Triglyceride 96 mg/dL (<150)
[2023-09-13 20:14] LABS: Bilirubin Negative (Negative); Blood Negative (Negative); Clarity Clear (Clear); Glucose Negative (Negative); Ketones Negative (Negative); Leukocyte Esterase Negative (Negative); Nitrite Negative (Negative); Urobilinogen 0.2 mg/dL (Up to 0.2); pH 6.5 (5-8)
[2023-09-13 20:47] LABS: Hemoglobin A1C 5.8 % (<5.7)
== END 2023-09-13 16:42 | disposition home or self-care (01) ==
LOC: NCHCN 16:41
PROVIDERS: PCP Nurse Practitioner Family; Visit Provider Nurse Practitioner Family
DX: R82.90 Unspecified abnormal findings in urine (principal); E04.1 Nontoxic single thyroid nodule; Z00.00 Encounter for general adult medical examination without abnormal findings
CPT/HCPCS: 80061; 81003; 83036; 84443

== ENCOUNTER 2023-09-28 10:27 | Emergency (ER) | payer OTHER, SELFPAY ==
--- NOTE | 2023-09-28 10:30 | RT.EKG_ITS ---
APPROVED REPORT Exam: Resting ECG Reason for Exam: Shortness of breath Patient Location: E HR:70 bpm ECG Measurements Heart Rate 70 AXIS DC 154 P 24 QRSd 146 QRS 88 QT 418 T -3 QTc 452 Conclusion Sinus rhythm...normal P axis, V-rate 60- 99 Right bundle branch block...QRSd>120, terminal axis(90,270) Physician: unchanged from prior ekg. RBBB present
[2023-09-28 10:34] VITALS: BP 164/100; PULSE 79; RESP 18; TEMP 37.1; O2SAT 98
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
[2023-09-28 11:33] LABS: Abs Immature Grans 0.01 10^3/uL (0.0-0.06); Absolute Basophil Count 0.05 10^3/uL (0.0-0.2); Absolute Eosinophil Count 0.09 10^3/uL (0.0-0.7); Absolute Lymphocyte Count 1.96 10^3/uL (1.2-3.4); Absolute Monocyte Count 0.46 10^3/uL (0.1-0.8); Absolute Neutrophil Count 3.94 10^3/uL (1.2-6.7); Basophils % 0.8 %; Eosinophils % 1.4 %; HCT 40.5 % (36.0-46.0); HGB 13.2 g/dL (11.2-15.7); Immature Grans % 0.2 %; Lymphocytes % 30.1 %; MCH 29.5 pg (27.0-33.0); MCHC 32.6 % (32.0-36.0); MCV 90 fL (80-95); MPV 9.2 fL (8.0-11.0); Monocytes % 7.1 %; Neutrophils % 60.4 %; Platelet Count 296 10^3/uL (130-400); RBC 4.48 10^6/uL (3.93-5.22); RDW 13.2 % (11.7-14.6); RDW-SD 43.6 fL; WBC 6.51 10^3/uL (4.4-10.8)
[2023-09-28] MEDS: Sucralfate 1 GM TAB PO (11:43)
[2023-09-28] MEDS: Pantoprazole 40 MG VIAL IVP (11:44)
[2023-09-28] MEDS: FAMOTIDINE 20 MG in Normal Saline 100 ML 400 MG IVPB (11:45)
[2023-09-28 11:47] LABS: ALT 38 U/L (14-59); AST 22 U/L (15-37); Alkaline Phosphatase 116 U/L (46-116); Amylase 64 U/L (25-115); Anion Gap 6.1 mmol/L (3-11); BUN 14 mg/dL (7-18); Bilirubin, Total 0.3 mg/dL (0.2-1.0); CO2 27.9 mmol/L (21.0-32.0); Chloride 104 mmol/L (98-107); Estimated GFR 67.78 (mL/min/1.73m2); Glucose 98 mg/dL (74-106); Lipase 45 U/L (16-77); Potassium 4.1 mmol/L (3.5-5.1); Sodium 138 mmol/L (136-145); Total Protein 7.7 g/dL (6.4-8.2)
[2023-09-28] MEDS: Lidocaine 2% Viscous 15 ML CUP (11:51)
[2023-09-28] MEDS: Ondansetron 4 MG/2 ML VIAL IVP (12:10)
[2023-09-28] MEDS: LORazepam 2 MG/ML VIAL 1 MG IVP (12:10)
[2023-09-28 13:21] LABS: Troponin I < 50 ng/L (< or =60)
[2023-09-28 14:35] VITALS: BP 132/83; PULSE 73; RESP 15; O2SAT 98
== END 2023-09-28 14:36 | disposition home or self-care (01) ==
PROVIDERS: Emergency Provider Physician Assistant; PCP Nurse Practitioner Family
DX: K20.90 Esophagitis, unspecified without bleeding (principal)
CPT/HCPCS: 36415; 80053; 82805; 83690; 87040; 93005; 96365; 96375; 99284; 82150; 83605; 83880; 84484; 85025; 85610; 85730; 93010; 99283; J2060; J2405; J2470

== ENCOUNTER 2023-10-02 12:37 | Outpatient (REF) | payer OTHER, SELFPAY ==
[2023-10-06 14:59] LABS: Helicobacter pylori Ag, Feces Negative (Negative)
== END 2023-10-02 12:38 | disposition home or self-care (01) ==
LOC: NCHCN 12:37
PROVIDERS: PCP Nurse Practitioner Family; Visit Provider Nurse Practitioner Family
DX: K21.9 Gastro-esophageal reflux disease without esophagitis (principal)
CPT/HCPCS: 87338

== ENCOUNTER 2023-10-19 12:31 | Outpatient (REF) | payer OTHER, SELFPAY ==
[2023-10-23 19:39] LABS: Calprotectin 235 mcg/g
== END 2023-10-19 12:32 | disposition home or self-care (01) ==
LOC: LBN 12:31
PROVIDERS: PCP Nurse Practitioner Family; Visit Provider Nurse Practitioner Adult Health
DX: R19.7 Diarrhea, unspecified (principal)
CPT/HCPCS: 83993

== ENCOUNTER 2023-12-29 09:22 | Emergency (ER) | payer OTHER, SELFPAY ==
[2023-12-29 09:29] VITALS: BP 144/82; PULSE 78; RESP 15; TEMP 36.8; O2SAT 96
--- OUTSIDE RECORDS SUMMARY | 2023-12-29 09:29 | XMS_ITS | Continuity of Care Document ---
Author Organization [facility] Address [address] [place] [address] Care Team Providers Care Clinical Rn Manager Name Role Phone Wilfredo Morgan Primary Care Physician Encounter [facility] [id number] Date(s): 01/17/23 - 01/17/23 [facility] [address] [place] [address] Discharge Disposition: Home Allergies, Adverse Reactions, Alerts Substance Reaction Severity Status predniSONE Unknown Active Vicodin Unknown Active Iron Unknown Active Calcium Unknown Active anabolic steroids Unknown Active HYDROcodone Bitartrate Unknown Activ e Wasps Unknown Active Assessment and Plan Future Appointments Medications DULoxetine 30 mg oral delayed release capsule 30 mg = 1 cap, Oral, Daily, do not crush or chew, 0 Refill(s) Start Date: 01/17/23 Status: Ordered traZODone 150 mg oral tablet 225 mg PO QHS insomnia, 0 Refill(s) Start Date: 12/30/22 Status: Ordered Problem List Condition Confirmation Course Effective Dates Status H ealth Status Informant Abnormal auditory perception of left ear Confirmed Active Tubular adenoma polyp of rectum Confirmed Active Postmenopausal atrophic vaginitis Confirmed Active Breast nodule Confirmed Active Cat scratch fever Confirmed Active Chronic pain Confirmed Active Inflammation of small intestine Confirmed Active Fatigue Confirmed Active Globus sensation Confirmed Active Enlarged thyroid Confirmed Active Insomnia Confirmed Active Medical marijuana use Confirmed Active Multinodular thyroid Confirmed Active Cervicalgia Confirmed Active Knee pain, right Confirmed Active Premature menopause Confirmed Active Restless legs syndrome (RLS) Confirmed Active Horners syndrome Confirmed Active Snoring Confirmed Active Positive colorectal cancer screening using DNA-based stool test Confirmed Active TMJ disease Confirmed Active Vitamin D deficiency Confirmed Active Social History Social History Type Response Tobacco Former tobacco user Tobacco Use:. 1 Sex Female 1stopped smoking 10 years ago Patient Care team information Care Team Personnel Name: Wilfredo Morgan DO Position: No Access Member Role: Primary Care Physician Address: Address: [facility] [address] [place] [address]- Care Team Related Persons Name: SHAWN SANTO Address: Home [address] [place], [place] [id number] Name: PADILLA VILLANUEVA
--- OUTSIDE RECORDS SUMMARY | 2023-12-29 09:29 | XMS_ITS | Encounter Summary ---
Author Organization [facility] Address [address] [place] [address] Care Team Providers Care Breaker Machine Operator Name Role Phone Unknown, Provider Primary Care Provider [phone] Reason for Visit * (Routine) - Receiving Office to Obtain Authorization Specialty Diagnoses / Procedures Referred By Harlan marc Referred To Contact Procedures XR OUTSIDE IMAGES NEURO Unknown, Provider, Referral ID Status Reason Start Date Expiration Date Visits Requested Visits Authorized [id number] Receiving Office to Obtain Authorization 05/18/2020 1 1 Encounter Details Date Type Department Care Team (Latest Contact Info) Description 05/18/2020 18:16 EST Hospital Encounter [place] [facility] [place] [place] Discharge Disposition: Home or Self Care Social History Tobacco Use Types Packs/Day Years Used Date Smoking Tobacco: Former Cigarettes 1.5 31.1 0 10/21/1981 - 11/21/2012 Smokeless Tobacco: Never Alcohol Use Standard Drinks/Week Comments Yes 0 (1 standard drink = 0.6 oz pur e alcohol) AUDIT-C Answer Date Recorded Q1: How often do you have a drink containing alcohol? 4 or more times a week 04/21/2020 Q2: How many drinks containi ng alcohol do you have on a typical day when you are drinking? 1 or 2 0 Q3: How often do you have si x or more drinks on one occasion? Monthly 04/21/2020 Interpersonal Safety Answer Date Record ed Physically Hurt Never 03/01/2020 Verbally Threaten Not on file 03/01/2020 Sex and Gender Information Value Date Recorded Sex Assigned at Not on file Gender Identity Not on file Sexual Orientation Not on file documented as of this encounter Medications at Time of Discharge Medication Sig Dispensed Refills Start Date End Date amitriptyline (ELAVIL) 100 mg tablet Take 100 mg by mouth as needed for Sleep. calcium carbonate/vitamin D3 (CALCIUM 600 + D,3, ORAL) Take by mouth. cyclobenzaprine (FLEXERIL) 10 mg tablet Take 10 mg by mouth as needed for Muscle Spasms. FISH OIL-DHA-EPA ORAL Take by mouth. LORazepam (ATIVAN) 2 mg tablet Take 1 Tab by mouth as needed for Anxiety. Daily Max: 4 mg 2 Tab 05/12/2020 MAGNESIUM CHLORIDE ORAL Take by mouth. MEDICAL MARIJUANA Take 2 mL by mouth daily. MEDICAL MARIJUANA 1.5 bowls daily trazodone HCl (TRAZODONE ORAL) Take 250 mg by mouth at bedtime. documented as of this encounter Discharge Disposition Disposition Code Departure Means Destination Home or Self Care documented in this encounter Plan of Treatment Not on file documented as of this encounter Procedures Procedure Name Priority Date/Time Associated Diagnosis Comments XR OUTSIDE IMAGES NEURO Routine 05/18/2020 18:16 EST documented in this encounter Results * XR OUTSIDE IMAGES NEURO (05/18/2020 18:16 EST) Narrative 05/18/2020 18:16 EST This is a non-reportable exam. Provider Unknown MD [facility] OTHER IMAGING OR DERABLES documented in this encounter Visit Diagnoses Not on filedocumented in this encounter Care Teams Breaker Machine Operator Relationship Specialty Start Date End Date Unknown, Provider, PCP - General 03/17/15 11/04/22 documented as of this encounter
--- OUTSIDE RECORDS SUMMARY | 2023-12-29 09:29 | XMS_ITS | Encounter Summary ---
Author Organization [facility] Address [address] [place] [address] Care Team Providers Care Package Delivery Driver Name Role Phone Unknown, Provider Primary Care Provider [phone] Wilfredo Morgan DO Primary Care Provider [phone] Encounter Details Date Type Department Care Team (Late st Contact Info) Description 08/10/2021 Lab Requisition [facility] Pathology & Laboratory Medicine - [facility] [address] [place] [address] Outr Resulting Lab, Provider Social History Tobacco Use Types Packs/Day Years [...] on file documented as of this encounter Plan of Treatment Not on file documented as of this encounter Procedures Procedure Name Priority Date/Time Associated Diagnosis Comments ZZCOVID-19 TEST [facility] PCR Today 08/09/2021 23:48 EDT COVID-19 TESTING Routine 08/09/2021 23:4 8 EDT documented in this encounter Results * COVID-19 TEST [facility] PCR (08/09/2021 23:48 EDT) Swab 08/09/2021 23:4 8 EDT 08/10/2021 16:19 EDT Provider Outr Resulting Lab MICROBIOLOGY - GENERAL ORDERABLES Performing Organization Address City/[facility]/ZIP Co de Phone Number [facility] [address] [place] [address] * COVID-19 TESTING (08/09/2021 23:48 EDT) COVID-19 rt-PCR Result Negative Negative 08/11/2021 11:29 EDT [facility] Comment: This test has not been FDA cleared or approved. This test has been authorized by FDA under an EUA for use by authorized laboratories. This test has been authorized only for detection of nucleic acid from 2019-nCoV, not for any other viruses or pathogens. This test is only authorized for the duration of the declaration that circumstances exist justifying the authorization of emergency use of in vitro diagnostic tests for detection and/or diagnosis of 2019-nCoV under section 564(b)(1) of Act, 21 U.S.C ?? 360bbb-3(b) (1), unless the authorization is terminated or revoked sooner. Negative results do not preclude 2019-nCoV infection and should not be used as the sole basis for treatment or other patient management decisions. Negative results must be combined with clinical observations, patient history, and epidemiological information. Testing was performed using the jose SARS-CoV-2 assay ([employer] on the Jose [id number] System Performing Lab Jose [address] [facility] 08/11/2021 11:29 EDT [facility] Swab 08/09/2021 23:4 8 EDT 08/10/2021 16:19 EDT Provider Outr Resulting Lab MICROBIOLOGY - GENERAL ORDERABLES Performing Organization Address City/[facility]/ZIP Co de Phone Number [facility] [address] [place] [address] documented in this encounter Visit Diagnoses Not on filedocumented in this encounter Care Teams Package Delivery Driver Relationship Specialty Start Date End Date Unknown, Provider, PCP - General 03/17/15 11/04/22 Wilfredo Morgan DO [address] [place] [id number] PCP - General Family Medicine - Primary Care 11/05/22 documented as of this encounter
--- OUTSIDE RECORDS SUMMARY | 2023-12-29 09:29 | XMS_ITS | Encounter Summary ---
Author Organization [facility] Address [address] [place] [address] Care Team Providers Care Recycling Center Operator Name Role Phone Unknown, Provider Primary Care Provider Encounter Details Date Type Department Care Team (Late st Contact Info) Description 05/12/2020 Orders Only [facility] - [facility] [address] [place], [place] [id number] Hemant Cantor MD [address] [facility] [place] [address] Social History Tobacco Use Types Packs/Day Years [...] on file documented as of this encounter Ordered Prescriptions Prescription Sig Dispensed Refills Start Date End Da te LORazepam (ATIVAN) 2 mg tablet Take 1 Tab by mouth as needed for Anxiety. Daily Max: 4 mg 2 Tab 05/12/2020 documented in this encounter Plan of Treatment Not on file documented as of this encounter Visit Diagnoses Not on filedocumented in this encounter Discontinued Medications Medication Sig Discontinue Reason Start Date End Da te LORazepam (ATIVAN) 2 mg tablet Take 1 Tab by mouth as needed for Anxiety. Daily Max: 4 mg Reorder 04/21/2020 05/12/2020 documented as of this encounter Care Teams Recycling Center Operator Relationship Specialty Start Date End Date Unknown, Provider, PCP - General 03/17/15 11/04/22 documented as of this encounter
--- OUTSIDE RECORDS SUMMARY | 2023-12-29 09:29 | XMS_ITS | Data Portability ---
Author Organization [place] [facility] Address [place] [address] Care Team Providers Care Us Customs And Border Officer Name Role Phone ASIMFELICIANO Primary Care Provider [phone] Assessment Encounter Date Assessment Date Assessment LastModified by Organization Details LastModified Time 09/13/2023 09/13/2023 Total Provider Time TODAY: 50 Minutes In addition to Barbara's annual exam today, we addressed multiple acute complaints, including her recent ER visit for gastritis. [email or web address] Not available 09/17/2023 04:42:02 Plan of Treatment Reminders Order Date Submit Date Provider Last Modified By Organization Details Last Modified Time Details Appointments Follow Up 30 2024 10:40A M Not available Not available Not available Lab TSH, serum, reflex free T4 - 1 mint and 1 lav tube collected from right ac. pt tolerated well. 2023 024 [email or web address] [facility] ([facility] Direct), [address] [place] [address] [place], [address], 09/20/2023 11:34:24 urinalysi s, dipstick - collected in office 2023 024 SANTO [facility] ([facility]), [address] [place] [address] [place], [address], 09/17/2023 04:12:27 lipids, total, serum - 1 mint and 1 lav tube collected from right ac. pt tolerated well. 2023 024 [facility] (Registration ), [address] [place] [address] [place], [address], 09/20/2023 11:34:24 HbA1c (hemoglob in A1c), blood - 1 mint and 1 lav tube collected from right ac. pt tolerated well. 2023 024 [facility] (Registration ), [address] [place] [address] [place], [address], 09/17/2023 04:15:04 Referral gynecolog ist referral 2023 024 [email or web address] [facility] (Obgyn), [address] [place] [address] [place], [address], 11/01/2023 15:56:37 Procedures None recorded. Surgeries None recorded. Imaging MAMMO, screening , bilateral 2023 024 [email or web address] [facility] (Radiology), [address] [place] [address] [place], [address], 09/17/2023 04:36:49 Medication Orders pantopraz ole 40 mg tablet,de layed release 2023 024 [email or web address] [facility], [address] [place], [address], 09/16/2023 10:01:11 famotidin e 40 mg tablet 2023 024 SANTO [facility], [address] [place], [address], 12/09/2023 10:59:19 Carafate 1 gram tablet 2023 024 [email or web address] [facility], [address] [place], [address], 10/26/2023 10:15:19 hydroxyzi ne HCl 10 mg tablet 2023 024 [facility], [address] [place], [address], 12/18/2023 09:43:57 clotrimaz ole 1 % topical cream 2023 024 SANTO [facility], [address] [place], [address], 12/09/2023 11:19:34 Patient TargetsNo targets recorded. Patient Instructions Encounter Date Encounter Id Patient Instructions Last Modified By Organization Details Last Modified Time 07/12/2023 [id number] 1. It is unclear at this time if there is actually a foreign body under the skin or not. At this time, I do not recommend any sort of incision for exploration. 2. I instead recommend applying warm compress to the area 2-3 times a day for 10 to 15 minutes to see if your body will help bring anything to surface. 3. I also recommend you watch for any signs of infection such as redness going from the area, red streaking the skin or pussy purulent drainage. That would indicate need to seek reevaluation. Not available 07/12/2023 16:03:41 09/13/2023 [id number] mammogram: about this test Not available 09/17/2023 04:36:49 3 month follow up. Wellness exam - cholesterol, TSH, and A1C checked today + urine sample. Delayed mammogram order for March - expect a phone call early March to schedule. [employer] MEMBER [facility] discuss risk and screening for Uterine cancer. Follow up with ENT as scheduled for your thyroid. Acute gastritis + ulcer (?) Try PANTOPRAZOLE (instead of omeprazole). Add FAMOTIDINE daily. Take CARAFATE (if affordable) 4 times daily to help coat the stomach. I would expect good improvement in 2-4 weeks. If symptoms resolve, may return to omeprazole. If symptoms return and/or persist, let me know and I will send you to general surgery to discuss further evaluation. Symptoms of bloating - reassess in 4-6 weeks. Depending on acid reflux symptoms + bloating symptoms, we will consider a referral to our general surgery team VS a dedicated gastroenterology team. Please call with questions. [email or web address] Not available 09/17/2023 04:22:39 10/26/2023 [id number] HYDROXYZINE prescribed for itching and/or acute stress. The dosing and side effects are the same as benadryl; expect, this version of the medication seems to help more with stress and itching. The dose size I prescribed is 10 mg. You can take 1-2 twice daily as needed. (The typical dose of benadryl is 25-50 mg) You can take extra benadryl if needed and/or I can prescribe a higher dose of hydroxyzine. Do not exceed more than 50 mg of either medication per dose. Continue with cortizone cream on the legs. Wash any clothing or tools that may have come into contact with poison luana. [email or web address] Not available 10/26/2023 10:30:36 12/09/2023 [id number] 1. I have sent prescription for clotrimazole and antifungal you will apply under the breast twice per day until symptoms resolve and then for 1 additional week after. This can take up to 4 weeks but given the limited nature of your rash I think it will not take that long 2. In regards to the itching of the legs I think that using an phxq-wxo-aeyqsuo daily nondrowsy antihistamine such as Zyrtec also known as cetirizine taken daily for the next several days may be helpful. You can continue to use the cortisone 10 on the legs. 3. I do not think you need to be applying the cortisone 10 or the bacitracin under the breast 4. I do expect these medication should begin to improve your symptoms. If not improving, worsening or you develop other concerning symptoms please seek reevaluation. Not available 12/09/2023 11:20:33 Reason for Referral Lab Technologist Referral for Bila teral plantar fasciitis Chronic bilateral pain to the bottom of her feet. Evidence of plantar fasciitis. Based on chronicity of symptoms, podiatry evaluation for further treatment if indicated. Referring Physician: Feliciano Perez, Family Medicine, Encounter Date: 06/08/2023 Occupational Health Coordinator Referral for Ananya dupree history of malignant neoplasm of uterus Referring Physician: Feliciano Perez, Family Medicine, Encounter Date: 09/13/2023 General Surgeon Referral for Gastroesophageal reflux disease without esophagitis Persistent acid reflux despite high-dose PPI and H2 marcelino, and abortive Carafate therapy. Referral to gastroenterology for further evaluation. Referring Physician: Feliciano Perez [facility], Encounter Date: 09/25/2023 Prototype Sewer Referral for Gastroesophageal reflux disease without esophagitis Persistent acid reflux despite high-dose PPI and H2 marcelino, and abortive Carafate therapy. Referral to gastroenterology for further evaluation. Referring Physician: Feliciano Perez [facility], Encounter Date: 10/06/2023 Results Created Date Observation Date Name Description Value Unit Range Abnormal Flag LastModifiedBy Organization Detail LastModifiedTime 08/24/19 24 08/24/2023 COMPL ETE BLOOD COUNT W/DIF F WBC 7.10 10_3/ uL 4.4-10 .8 normal Not Available [address] [place], [address] 08/24/2023 12:38:23 08/24/19 24 08/24/2023 COMPL ETE BLOOD COUNT W/DIF F RBC 4.62 10_6/ uL 3.93-5 .22 normal Not Available [address] [place], [address] 08/24/2023 12:38:23 08/24/19 24 08/24/2023 COMPL ETE BLOOD COUNT W/DIF F HGB 13.9 g/dL 11.2-1 5.7 normal Not Available [address] [place], [address] 08/24/2023 12:38:23 08/24/19 24 08/24/2023 COMPL ETE BLOOD COUNT W/DIF F HCT 40.9 % 36.0-4 6.0 normal Not Available [address] [place], [address] 08/24/2023 12:38:23 08/24/19 24 08/24/2023 COMPL ETE BLOOD COUNT W/DIF F MCV 89 fL 80-95 normal Not Available [address] [place], [address] 08/24/2023 12:38:23 08/24/19 24 08/24/2023 COMPL ETE BLOOD COUNT W/DIF F MCH 30.1 pg 27.0-3 3.0 normal Not Available [address] [place], [address] 08/24/2023 12:38:23 08/24/19 24 08/24/2023 COMPL ETE BLOOD COUNT W/DIF F MCHC 34.0 % 32.0-3 6.0 normal Not Available [address] [place], [address] 08/24/2023 12:38:23 08/24/19 24 08/24/2023 COMPL ETE BLOOD COUNT W/DIF F RDW 12.6 % 11.7-1 4.6 normal Not Available [address] [place], [address] 08/24/2023 12:38:23 08/24/19 24 08/24/2023 COMPL ETE BLOOD COUNT W/DIF F platelet count 317 10_3/ uL 130-40 0 normal Not Available [address] [place], [address] 08/24/2023 12:38:23 08/24/19 24 08/24/2023 COMPL ETE BLOOD COUNT W/DIF F MPV 9.1 fL 8.0-11 .0 normal Not Available [address] [place], [address] 08/24/2023 12:38:23 08/24/19 24 08/24/2023 COMPL ETE BLOOD COUNT W/DIF F neutrophils % 58.7 Not Available [address] [place], [address] 08/24/2023 12:38:23 08/24/19 24 08/24/2023 COMPL ETE BLOOD COUNT W/DIF F lymphocytes % 33.4 Not Available [address] [place], [address] 08/24/2023 12:38:23 08/24/19 24 08/24/2023 COMPL ETE BLOOD COUNT W/DIF F monocytes % 6.1 Not Available Darrius hall [address] [place], [address] 08/24/2023 12:38:23 08/24/19 24 08/24/2023 COMPL ETE BLOOD COUNT W/DIF F eosinophils % 1.1 Not Available [address] [place], [address] 08/24/2023 12:38:23 08/24/19 24 08/24/2023 COMPL ETE BLOOD COUNT W/DIF F basophils % 0.6 Not Available Darrius barrazachad [address] [place], [address] 08/24/2023 12:38:23 08/24/19 24 08/24/2023 COMPL ETE BLOOD COUNT W/DIF F immature grans % 0.1 Not Available [address] [place], [address] 08/24/2023 12:38:23 08/24/19 24 08/24/2023 COMPL ETE BLOOD COUNT W/DIF F nucleated RBC 0.0 % 0.0-0. 3 normal Not Available [address] [place], [address] 08/24/2023 12:38:23 08/24/19 24 08/24/2023 COMPL ETE BLOOD COUNT W/DIF F absolute neutrophil count 4.17 10_3/ uL 1.2-6. 7 normal Not Available [address] [place], [address] 08/24/2023 12:38:23 08/24/19 24 08/24/2023 COMPL ETE BLOOD COUNT W/DIF F absolute lymphocyte count 2.37 10_3/ uL 1.2-3. 4 normal Not Available [address] [place], [address] 08/24/2023 12:38:23 08/24/19 24 08/24/2023 COMPL ETE BLOOD COUNT W/DIF F absolute monocyte count 0.43 10_3/ uL 0.1-0. 8 normal Not Available [address] [place], [address] 08/24/2023 12:38:23 08/24/19 24 08/24/2023 COMPL ETE BLOOD COUNT W/DIF F absolute eosinophil count 0.08 10_3/ uL 0.0-0. 7 normal Not Available [address] [place], [address] 08/24/2023 12:38:23 08/24/19 24 08/24/2023 COMPL ETE BLOOD COUNT W/DIF F absolute basophil count 0.04 10_3/ uL 0.0-0. 2 normal Not Available [address] [place], [address] 08/24/2023 12:38:23 08/24/19 24 08/24/2023 COMPR EHENS VILMA METAB OLIC PANEL calcium 10.5 mg/dL 8.5-10 .1 high Not Available [address] [place], [address] 08/24/2023 12:55:31 08/24/19 24 08/24/2023 COMPR EHENS VILMA METAB OLIC PANEL glucose 101 mg/dL 74-106 normal Not Available [address] [place], [address] 08/24/2023 12:55:31 08/24/19 24 08/24/2023 COMPR EHENS VILMA METAB OLIC PANEL BUN 14 mg/dL 7-18 normal Not Available [address] [place], [address] 08/24/2023 12:55:31 08/24/19 24 08/24/2023 COMPR EHENS VILMA METAB OLIC PANEL creatinine 0.9 mg/dL 0.55-1 .02 normal Not Available [address] [place], [address] 08/24/2023 12:55:31 08/24/19 24 08/24/2023 COMPR EHENS VILMA METAB OLIC PANEL estimated GFR 76.92 mL/min /1.73M 2 Not Available [address] [place], [address] 08/24/2023 12:55:31 08/24/19 24 08/24/2023 COMPR EHENS VILMA METAB OLIC PANEL total protein 8.2 g/dL 6.4-8. 2 normal Not Available [address] [place], [address] 08/24/2023 12:55:31 08/24/19 24 08/24/2023 COMPR EHENS VILMA METAB OLIC PANEL albumin 4.1 g/dL 3.4-5. 0 normal Not Available [address] [place], [address] 08/24/2023 12:55:31 08/24/19 24 08/24/2023 COMPR EHENS VILMA METAB OLIC PANEL bilirubin, total 0.4 mg/dL 0.2-1. 0 normal Not Available [address] [place], [address] 08/24/2023 12:55:31 08/24/19 24 08/24/2023 COMPR EHENS VILMA METAB OLIC PANEL alk phos 124 U/L 46-116 high Not Available [address] [place], [address] 08/24/2023 12:55:31 08/24/19 24 08/24/2023 COMPR EHENS VILMA METAB OLIC PANEL sodium 140 mmol/ L 136-14 5 normal Not Available [address] [place], [address] 08/24/2023 12:55:31 08/24/19 24 08/24/2023 COMPR EHENS VILMA METAB OLIC PANEL potassium 3.9 mmol/ L 3.5-5. 1 normal Not Available [address] [place], [address] 08/24/2023 12:55:31 08/24/19 24 08/24/2023 COMPR EHENS VILMA METAB OLIC PANEL chloride 104 mmol/ L 98-107 normal Not Available [address] [place], [address] 08/24/2023 12:55:31 08/24/19 24 08/24/2023 COMPR EHENS VILMA METAB OLIC PANEL CO2 25.8 mmol/ L 21.0-3 2.0 normal Not Available [address] [place], [address] 08/24/2023 12:55:31 08/24/19 24 08/24/2023 COMPR EHENS VILMA METAB OLIC PANEL anion gap 10.2 mmol/ L 3-11 normal Not Available [address] [place], [address] 08/24/2023 12:55:31 08/24/19 24 08/24/2023 COMPR EHENS VILMA METAB OLIC PANEL AST 18 U/L 15-37 normal Not Available [address] [place], [address] 08/24/2023 12:55:31 08/24/19 24 08/24/2023 COMPR EHENS VILMA METAB OLIC PANEL ALT 32 U/L 14-59 normal Not Available [address] [place], [address] 08/24/2023 12:55:31 08/24/19 24 08/24/2023 MAGNE SIUM magnesium 2.1 mg/dL 1.8-2. 4 normal Not Available [address] [place], [address] 08/24/2023 12:55:31 08/24/19 24 08/24/2023 TROPO HOSEA I troponin I < 50 NG/L < or =60 Not Available [address] [place], [address] 08/24/2023 12:55:32 08/24/19 24 08/24/2023 PROTH ROMBI N TIME prothrombin time 10.3 sec 9.1-11 .1 normal Not Available [address] [place], [address] 08/24/2023 12:57:30 08/24/19 24 08/24/2023 PROTH ROMBI N TIME INR 1.0 0.9-1. 1 normal Not Available [address] [place], [address] 08/24/2023 12:57:30 08/24/19 24 08/24/2023 PTT ACTIV ATED PTT activated 26.1 sec 23.6-3 2.8 normal Not Available [address] [place], [address] 08/24/2023 12:57:31 08/24/19 24 08/24/2023 TROPO HOSEA I troponin I < 50 NG/L < or =60 Not Available [address] [place], [address] 08/24/2023 15:38:19 09/13/19 24 09/13/2023 LIPID 2 cholesterol 235 mg/dL <200 high Not Available [address] [place], [address] 09/13/2023 19:24:05 09/13/19 24 09/13/2023 LIPID 2 triglyceride 96 mg/dL <150 Not Available [address] [place], [address] 09/13/2023 19:24:05 09/13/19 24 09/13/2023 LIPID 2 HDL cholesterol 73 mg/dL 40-60 Not Available Hal vogel [address], [address] 09/13/2023 19:24:05 09/13/19 24 09/13/2023 LIPID 2 calculated LDL 143 mg/dL <100 high Not Available [address] [place], [address] 09/13/2023 19:24:05 09/13/19 24 09/13/2023 TSH (W/RE F FT4) TSH (w/ref FT4) 1.01 uIU/m L 0.36-3 .74 normal Not Available [address] [place], [address] 09/13/2023 19:24:05 09/13/19 24 09/13/2023 URINA LYSIS color Yellow yellow Not Available [facility] ([facility]) [address] [place] [address] [place], [address], 09/13/2023 20:17:05 09/13/19 24 09/13/2023 URINA LYSIS clarity Clear clear Not Available [facility] ([facility]) [address] [place] [address] [place], [address], 09/13/2023 20:17:05 09/13/19 24 09/13/2023 URINA LYSIS specific gravity 1.020 1.005- 1.025 normal Not Available [facility] ([facility]) [address] [place] [address] [place], [address], 09/13/2023 20:17:05 09/13/19 24 09/13/2023 URINA LYSIS pH 6.5 5-8 normal Not Available [facility] ([facility]) [address] [place] [address] [place], [address], 09/13/2023 20:17:05 09/13/19 24 09/13/2023 URINA LYSIS leukocyte esterase Negati ve negati ve Not Available [facility] ([facility]) [address] [place] [address] [place], [address], 09/13/2023 20:17:05 09/13/19 24 09/13/2023 URINA LYSIS nitrite Negati ve negati ve Not Available [facility] ([facility]) [address] [place] [address] [place], [address], 09/13/2023 20:17:05 09/13/19 24 09/13/2023 URINA LYSIS protein Negati ve mg/dL neg-tr lat[place] Not Available [facility] ([facility]) [address] [place] [address] [place], [address], 09/13/2023 20:17:05 09/13/19 24 09/13/2023 URINA LYSIS glucose Negati ve mg/dL negati ve Not Available [facility] ([facility]) [address] [place] [address] [place], [address], 09/13/2023 20:17:05 09/13/19 24 09/13/2023 URINA LYSIS ketones Negati ve mg/dL negati ve Not Available [facility] ([facility]) [address] [place] [address] [place], [address], 09/13/2023 20:17:05 09/13/19 24 09/13/2023 URINA LYSIS urobilinogen 0.2 mg/dL up to 0.2 Not Available [facility] ([facility]) [address] [place] [address] [place], [address], 09/13/2023 20:17:05 09/13/19 24 09/13/2023 URINA LYSIS bilirubin Negati ve negati ve Not Available [facility] ([facility]) [address] [place] [address] [place], [address], 09/13/2023 20:17:05 09/13/19 24 09/13/2023 URINA LYSIS blood Negati ve negati ve Not Available [facility] ([facility]) [address] [place] [address] [place], [address], 09/13/2023 20:17:05 09/13/19 24 09/13/2023 HEMOG LOBIN A1C hemoglobin A1C 5.8 % <5.7 high Not Available [facility] (Registration ) [address] [place] [address] [place], [address], 09/13/2023 20:59:17 09/28/19 24 09/28/2023 COMPL ETE BLOOD COUNT W/DIF F WBC 6.51 10_3/ uL 4.4-10 .8 normal Not Available [address] [place], [address] 09/28/2023 11:35:38 09/28/19 24 09/28/2023 COMPL ETE BLOOD COUNT W/DIF F RBC 4.48 10_6/ uL 3.93-5 .22 normal Not Available [address] [place], [address] 09/28/2023 11:35:38 09/28/19 24 09/28/2023 COMPL ETE BLOOD COUNT W/DIF F HGB 13.2 g/dL 11.2-1 5.7 normal Not Available [address] [place], [address] 09/28/2023 11:35:38 09/28/19 24 09/28/2023 COMPL ETE BLOOD COUNT W/DIF F HCT 40.5 % 36.0-4 6.0 normal Not Available [address] [place], [address] 09/28/2023 11:35:38 09/28/19 24 09/28/2023 COMPL ETE BLOOD COUNT W/DIF F MCV 90 fL 80-95 normal Not Available [address] [place], [address] 09/28/2023 11:35:38 09/28/19 24 09/28/2023 COMPL ETE BLOOD COUNT W/DIF F MCH 29.5 pg 27.0-3 3.0 normal Not Available [address] [place], [address] 09/28/2023 11:35:38 09/28/19 24 09/28/2023 COMPL ETE BLOOD COUNT W/DIF F MCHC 32.6 % 32.0-3 6.0 normal Not Available [address] [place], [address] 09/28/2023 11:35:38 09/28/19 24 09/28/2023 COMPL ETE BLOOD COUNT W/DIF F RDW 13.2 % 11.7-1 4.6 normal Not Available [address] [place], [address] 09/28/2023 11:35:38 09/28/19 24 09/28/2023 COMPL ETE BLOOD COUNT W/DIF F platelet count 296 10_3/ uL 130-40 0 normal Not Available [address] [place], [address] 09/28/2023 11:35:38 09/28/19 24 09/28/2023 COMPL ETE BLOOD COUNT W/DIF F MPV 9.2 fL 8.0-11 .0 normal Not Available [address] [place], [address] 09/28/2023 11:35:38 09/28/19 24 09/28/2023 COMPL ETE BLOOD COUNT W/DIF F neutrophils % 60.4 % Not Available [address] [place], [address] 09/28/2023 11:35:38 09/28/19 24 09/28/2023 COMPL ETE BLOOD COUNT W/DIF F lymphocytes % 30.1 % Not Available [address] [place], [address] 09/28/2023 11:35:38 09/28/19 24 09/28/2023 COMPL ETE BLOOD COUNT W/DIF F monocytes % 7.1 % Not Available [address] [place], [address] 09/28/2023 11:35:38 09/28/19 24 09/28/2023 COMPL ETE BLOOD COUNT W/DIF F eosinophils % 1.4 % Not Available [address] [place], [address] 09/28/2023 11:35:38 09/28/19 24 09/28/2023 COMPL ETE BLOOD COUNT W/DIF F basophils % 0.8 % Not Available [address] [place], [address] 09/28/2023 11:35:38 09/28/19 24 09/28/2023 COMPL ETE BLOOD COUNT W/DIF F immature grans % 0.2 % Not Available [address] [place], [address] 09/28/2023 11:35:38 09/28/19 24 09/28/2023 COMPL ETE BLOOD COUNT W/DIF F nucleated RBC 0.0 % 0.0-0. 3 normal Not Available [address] [place], [address] 09/28/2023 11:35:38 09/28/19 24 09/28/2023 COMPL ETE BLOOD COUNT W/DIF F absolute neutrophil count 3.94 10_3/ uL 1.2-6. 7 normal Not Available [address] [place], [address] 09/28/2023 11:35:38 09/28/19 24 09/28/2023 COMPL ETE BLOOD COUNT W/DIF F absolute lymphocyte count 1.96 10_3/ uL 1.2-3. 4 normal Not Available [address] [place], [address] 09/28/2023 11:35:38 09/28/19 24 09/28/2023 COMPL ETE BLOOD COUNT W/DIF F absolute monocyte count 0.46 10_3/ uL 0.1-0. 8 normal Not Available [address] [place], [address] 09/28/2023 11:35:38 09/28/19 24 09/28/2023 COMPL ETE BLOOD COUNT W/DIF F absolute eosinophil count 0.09 10_3/ uL 0.0-0. 7 normal Not Available [address] [place], [address] 09/28/2023 11:35:38 09/28/19 24 09/28/2023 COMPL ETE BLOOD COUNT W/DIF F absolute basophil count 0.05 10_3/ uL 0.0-0. 2 normal Not Available [address] [place], [address] 09/28/2023 11:35:38 09/28/19 24 09/28/2023 COMPR EHENS VILMA METAB OLIC PANEL calcium 10.0 mg/dL 8.5-10 .1 normal Not Available [address] [place], [address] 09/28/2023 11:51:40 09/28/19 24 09/28/2023 COMPR EHENS VILMA METAB OLIC PANEL glucose 98 mg/dL 74-106 normal Not Available [address] [place], [address] 09/28/2023 11:51:40 09/28/19 24 09/28/2023 COMPR EHENS VILMA METAB OLIC PANEL BUN 14 mg/dL 7-18 normal Not Available [address] [place], [address] 09/28/2023 11:51:40 09/28/19 24 09/28/2023 COMPR EHENS VILMA METAB OLIC PANEL creatinine 1.0 mg/dL 0.55-1 .02 normal Not Available [address] [place], [address] 09/28/2023 11:51:40 09/28/19 24 09/28/2023 COMPR EHENS VILMA METAB OLIC PANEL estimated GFR 67.78 mL/min /1.73m 2 Not Available [address] [place], [address] 09/28/2023 11:51:40 09/28/19 24 09/28/2023 COMPR EHENS VILMA METAB OLIC PANEL total protein 7.7 g/dL 6.4-8. 2 normal Not Available [address] [place], [address] 09/28/2023 11:51:40 09/28/19 24 09/28/2023 COMPR EHENS VILMA METAB OLIC PANEL albumin 4.0 g/dL 3.4-5. 0 normal Not Available [address] [place], [address] 09/28/2023 11:51:40 09/28/19 24 09/28/2023 COMPR EHENS VILMA METAB OLIC PANEL bilirubin, total 0.3 mg/dL 0.2-1. 0 normal Not Available [address] [place], [address] 09/28/2023 11:51:40 09/28/19 24 09/28/2023 COMPR EHENS VILMA METAB OLIC PANEL alk phos 116 U/L 46-116 normal Not Available [address] [place], [address] 09/28/2023 11:51:40 09/28/19 24 09/28/2023 COMPR EHENS VILMA METAB OLIC PANEL sodium 138 mmol/ L 136-14 5 normal Not Available [address] [place], [address] 09/28/2023 11:51:40 09/28/19 24 09/28/2023 COMPR EHENS VILMA METAB OLIC PANEL potassium 4.1 mmol/ L 3.5-5. 1 normal Not Available [address] [place], [address] 09/28/2023 11:51:40 09/28/19 24 09/28/2023 COMPR EHENS VILMA METAB OLIC PANEL chloride 104 mmol/ L 98-107 normal Not Available [address] [place], [address] 09/28/2023 11:51:40 09/28/19 24 09/28/2023 COMPR EHENS VILMA METAB OLIC PANEL CO2 27.9 mmol/ L 21.0-3 2.0 normal Not Available [address] [place], [address] 09/28/2023 11:51:40 09/28/19 24 09/28/2023 COMPR EHENS VILMA METAB OLIC PANEL anion gap 6.1 mmol/ L 3-11 normal Not Available [address] [place], [address] 09/28/2023 11:51:40 09/28/19 24 09/28/2023 COMPR EHENS VILMA METAB OLIC PANEL AST 22 U/L 15-37 normal Not Available [address] [place], [address] 09/28/2023 11:51:40 09/28/19 24 09/28/2023 COMPR EHENS VILMA METAB OLIC PANEL ALT 38 U/L 14-59 normal Not Available [address] [place], [address] 09/28/2023 11:51:40 09/28/19 24 09/28/2023 AMYLA SE amylase 64 U/L 25-115 normal Not Available [address] [place], [address] 09/28/2023 11:51:40 09/28/19 24 09/28/2023 LIPAS E lipase 45 U/L 16-77 normal Not Available [address] [place], [address] 09/28/2023 11:51:41 09/28/19 24 09/28/2023 TROPO HOSEA I troponin I < 50 NG/L < or =60 Not Available [address] [place], [address] 09/28/2023 13:23:51 10/02/19 24 10/06/2023 HELIC OBACT ER PYLOR I AG, FECES helicobacter pylori Ag, feces Negati ve negati ve Not Available [address] [place], [address] 10/09/2023 13:06:09 10/19/19 24 10/23/2023 CALPR OTECT IN calprotectin 235 mcg/g abnormal Not Available [address] [place], [address] 10/25/2023 09:29:43 08/24/19 24 08/24/2023 x-ray imagi ng ambar t Janeen t Name: Barbara Braxton Unit #: [id number] Loc: ER Orderi ng Provid er: Aamir Cagle NP Accoun t #: [id number] Status : PRE ER Primar y Care Provid er: FELICIANO PEREZ NP Date of Exam: 08/06 12/29 Sex: F Admiss ion Date: : 1969 Age: 53 Exam(s ) XR PORTAB LE CHEST AP EXAM: XR PORTAB LE CHEST AP CLINIC AL HISTOR Y: Chest Pain TECHNI QUE: 2D digita l imagin g was perfor med. COMPAR GERALDINE: CT CT CHEST LUNG CANCER SCREEN from 2022 FINDIN GS: Leads overli e the chest. LUNGS: Clear. No pleura l abnorm ality seen. HEART: Normal size. AORTA: Normal diamet er. BONES: Unrema rkable for age. Soft tissue s: Unrema rkable . IMPRES DOMINGA: No acute findin gs. DATA REPOSI TORY: RADIAT ION DOSE DELIVE RED: Ordere d By: Aamir Cagle NP CC: ------ ------ ------ ------ ------ ------ ------ ------ ------ ------ ------ ------ - Dictat ed By: Yael Johnson [id number] Transc ribed By: Buddy Bowman 1335 This is privil eged, confid ential inform ation intend ed only for the provid er named. Any use or distri bution by any person other than this provid er is strict ly prohib ited. If you receiv e this report in error, please notify us immedrandy dillard at [phone] and return the origin al report to us at the addres s above. Thank- you. [email or web address] [facility] [address] [facility] [place], [address] 08/24/2023 15:44:31 08/24/19 24 08/24/2023 CT imagi ng repor t Patien t Name: Barbara Braxton Unit #: [id number] Loc: ER Orderi ng Provid er: Yoly on,Aamir wna GIFT WRAPPER Accoun t #: [id number] Status : REG ER Primar y Care Provid er: FELICIANO PEREZ GIFT WRAPPER Date of Exam: 08/06 12/29 Sex: F : 1969 Age: 53 Exam(s ) a CT:CT thorax abd/pe l CTA Exam(s ) CT THORAX ABD/PE L CTA EXAM: CT THORAX ABD/PE L CTA CLINIC AL HISTOR Y: Chest Pain, HTN, SOB. TECHNI QUE: Imagin g Protoc ol: Axial CT angiog neeru was perfor med with multi- slice acquis ition and multi- planar and/or 3D recons tructi ons. CONTRA ST MATERI AL: Intrav enous: Omnipa que [address] volume :100 mL Oral: No COMPAR GERALDINE: CT CT CHEST LUNG CANCER SCREEN from 2022 FINDIN GS: CHEST: Trache obronc hial tree: Patent where visual ized. Pulmon андрей parenc hyma: No consol idatio n or domina nt measur able mass. There is a stable 5 mm nodule in the medial aspect of the left lower lobe (serie s 6, image 385). There is a stable 5 mm nodule in the left lower lobe (serie s 6, image 347). There is a stable 4 mm nodule in the latera l aspect of the right upper lobe (serie s 6, image 235). No new pulmon андрей nodule s are presen t. Pulmon андрей Arteri es: No eviden ce of fillin g defect to sugges t pulmon андрей emboli . Medias tinum and Devora: No domina nt adenop athy or fluid collec tion. The esopha mao is unrema rkable . Visual ized thyroi d: Unrema rkable . Pleura : No effusi on or pneumo thorax . Heart: The heart is not dilate d. No flores ry artery calcif icatio ns are seen. No perica rdial effusi on. Aorta: Thorac ic aorta non-di lated. No eviden ce of dissec tion. Soft Tissue s: Unrema rkable . Bones: Within normal limits for the patien t's age. ABDOME N AND PELVIS : Abdome n: Celiac axis/m esente emory arteri es: No eviden ce of occlus ion or signif icant stenos is. Renal Arteri es: No eviden ce of occlus ion or signif icant stenos is. Aorta: No eviden ce of occlus ion or signif icant stenos is. No aneury sm or dissec tion. Minima l athero sclero tic calcif icatio n is presen t. Pelvis : Iliac Arteri es: No eviden ce of occlus ion or signif icant stenos is. Mild athero sclero tic calcif icatio n is presen t. Common Femora l Arteri es: No eviden ce of occlus ion or signif icant stenos is. ABDOME N: Liver: Normal densit y. No measur able mass. Gallbl adder and Biliar y Tract: No radiod ense calcul us or dilati on. Pancre as: Normal densit y, no abnorm al calcif icatio ns or inflam matory proces s. Spleen : Normal . Adrena ls: No masses seen. Kidney s: Normal size, contou r and axis. No radiod ense stones or obstru ctive uropat hy. No masses seen. Bowel: No obstru ction or bowel wall thicke paulie. Append ix is unrema rkable . Perito ezequiel Cavity : No ascite s, collec tion or mesent blade inflam matory respon se. No free air. Lymph Nodes: Within normal limits . Bones: Within normal limits for the patien t's age. Soft Tissue s: Unrema rkable . PELVIS : Bladde r: Symmet emory disten tion, no gross wall thicke paulie. Reprod uctive Organs : Unrema rkable as visual ized. Lymph Nodes: Within normal limits . Bones: Within normal limits for the patien t's age. IMPRES DOMINGA: 1. No eviden ce of thorac ic aortic aneury sm or dissec tion. 2. Stable pulmon андрей nodule s. 3. No acute abdomi nal or pelvic proces s. 4. No acute pulmon андрей proces s. RADIAT ION DOSE DELIVE RED: 1,131. 49mGy. cm Total DLP DATA REPOSI TORY: All CT scans at this facili ty are submit sara to the [facility] al Radiol ogy Data Regist ry (NRDR) Dose Index Regist ry (DIR) with the [place] go of Radiol ogy (ACR). RADIAT ION OPTIMI ZATION : All CT scans at this facili ty use at least one of these dose optimi zation techni ques: automa sara exposu re contro l; mA and/or kV adjust ment per patien t size (inclu shaunna target ed exams where dose is matche d to clinic al indica tion); or iterat vilma recons tructi on. 0418-0 017: Total DLP = 0.00 mGy-cm Ordere d By: Aamir Cagle NP CC: ------ ------ ------ ------ ------ ------ ------ ------ ------ ------ ------ ------ ---- Dictat ed By: Neo Braxton M.D. [id number] Transc ribed By: Neo Braxton 141 This is privil eged, confid ential inform ation intend ed only for the provid er named. Any use or distri bution by any person other than this provid er is strict ly prohib ited. If you receiv e this report in error, please notify us immedi jonathanly at and return the origin al report to us at the addres s above. Thank- you. [email or web address] [facility] [address] [facility] [place], [address] 08/24/2023 15:44:31 10/19/19 24 10/19/2023 ultra sound imagi ng ambar marc Name: Barbara Braxton Unit #: [id number] Loc: DI Orderi ng Provid er: Mena Hernandez sa, M.D. Accoun t #: [id number] Status : REG CLI Primar y Care Provid er: FELICIANO PEREZ GIFT WRAPPER Date of Exam: 10/06 07/29 Sex: F Admiss ion Date: : 1969 Age: 53 Exam(s ) US PELVIS TRANSV AGINAL EXAM: US PELVIS TRANSV AGINAL CLINIC AL HISTOR Y: R10.32 LLQ pain, Z80.49 FA hx of CA other genita l organs . TECHNI QUE: Transa bdomin al and transv aginal pelvic ultras ound was perfor med using standa rd protoc ol. COMPAR GERALDINE: CT CT THORAX ABD/PE L CTA from 2023 FINDIN GS: UTERUS : Positi on: Anteve rted. Size: 6.5 long by 1.9 AP by 3.0 transv erse cm Endome trium: 0.3 cm. Normal for janeen marc's menstr ual status . Myomet rium: Unrema rkable . Cervix : Unrema rkable . OVARIE S: Right: 1.9 x 1.2 x 2.3 cm Cyst or mass: No suspic ious cystic or solid masses . Left: 2.0 x 1.3 x 1.4 cm Cyst or mass: No suspic ious cystic or solid masses . DOPPLE R: Color: Symmet emory and unifor m flow to both ovarie s. CUL-DE -SAC: Free fluid: None. Other: None. IMPRES DOMINGA: 1. Normal -appea ring uterus with endome trial stripe within normal limits . 2. Unrema rkable bilate ral ovarie s. DATA REPOSI TORY: Ordere d By: Mena Hernandez sa, M.D. CC: ------ ------ ------ ------ ------ ------ ------ ------ ------ ------ ------ ------ - Dictat ed By: Neo Braxton M.D. 58 58 Transc ribed By: Neo Braxton 58 This is privil eged, confid ential inform ation intend ed only for the provid er named. Any use or distri bution by any person other than this provid er is strict ly prohib ited. If you receiv e this report in error, please notify us immedi nishant at and return the origin al report to us at the addres s above. Thank- you. [email or web address] [facility] [address] , [place], [address] 10/23/2023 08:27:20 Result Notes None recorded. Problems Name Status Onset Date Resolution Date Notes Provider Name and Address Organization Details Recorded Time Diarrhea Completed 202106/09/[address], [place], [address], [facility] 4 11:53:26 Cellulitis Completed 202106/09/[address], [place], [address], [facility] 4 11:53:14 Gastroesophag eal reflux disease without esophagitis Active [address], [place], [address], [facility] 4 11:53:30 Mixed anxiety and depressive disorder Active [address], [place], [address], [facility] 4 11:53:30 Posttraumatic stress disorder Active [address], [place], [address], [facility]. 4 11:53:30 Chronic pain Active [address], [place], [address], [facility] 4 11:53:17 Migraine Active [address], [place], [address], [facility] 4 11:53:30 Obstructive sleep apnea syndrome Active [address], [place], [address], [facility] 4 11:53:30 Sleep pattern disturbance Active [address], [place], [address], [facility] 4 11:53:30 Bilateral plantar fasciitis Active [address], [place], [address], [facility] 4 11:53:14 Family history of malignant neoplasm of uterus Active 2023 Mother at age 54 from uterine cancer. [address], [place], [address], [facility]. 4 11:56:53 Anxiety Active [address], [place], [address], [facility] 4 14:59:50 Abnormal urine Completed 202312/18/[address], [place], [address], [facility] 4 14:59:52 Thyroid nodule Active [address], [place], [address], [facility] 4 15:54:12 Contact dermatitis caused by plants Active [address], [place], [address], [facility] 4 14:59:46 Tinea cruris Active [address], [place], [address], [facility] 4 15:00:01 Pruritic rash Active [address], [place], [address], [facility] 4 14:59:55 Chronic constipation Active [address], [place], [address], [facility] 4 14:59:48 Seasonal allergy Active [address], [place], [address], [facility] 4 14:59:57 Tubular adenoma of colon Active 202305-20-22 - Colonoscopy at [facility]. (+) cologuard with f/u colonoscopy. Per GI note, terminal ileum with erythema; sigmoid colon showed 2 polyps; (+) diverticulosis in the sigmoid colon; pathology showed active ileitis with ulceration; polyps showed tubular adenomas. [address], [place], [address], [facility] 15:00:26 Problem Notes None recorded. Procedures Surgical History None recorded. Imaging Results Imaging Date Name Status LastModified by Organiz ation Details LastModified Time 08/24/2023 x-ray imaging report completed [email or web address] [address] [place], [address] 08/24/2023 15:44:31 08/24/2023 CT imaging report completed [email or web address] [address] [facility] [address] 08/24/2023 15:44:31 10/19/2023 ultrasound imaging report completed [id number] [address] [facility] [address] 10/23/2023 08:27:20 Procedure Notes None recorded. Medical Equipment None Reported. Allergies Allergen ID Allergen Name Allergen Category Reaction Reaction Severity Criticality Documentation Date Start Date Code Code System Note Provider Name and Address Organization Details Recorded Time 64020 betametha sone medicatio n confusion Not available low 07/12/2023 1514 RxNorm Heart palpi tatio ns [facility] 15:37:34 33767 wasp venoms environme nt chest pain Not available high 07/12/2023 46171 Rx[facility] 15:38:05 94150 prednison e medicatio n confusion moderate Not available 08/10/2023 8640 RxNorm FORTINO Ramirez, [facility] 14:46:21 42730 iron medicatio n Not available Not available Not available 08/10/2023 70814 RxNorm FORTINO Ramirez [facility] 14:46:49 Medications Name Sig Start Date Stop Date Status Note LastModified by Organization Details LastModified Time cyclobenzap rine 10 mg tablet TAKE ONE TABLET BY MOUTH THREE TIMES A DAY NEEDED FOR MUSCLE SPASM active Not Available Not Available No t Available cetirizine 10 mg tablet Take 1 tablet every day by oral route as directed for 90 days. 2023 active Not Available Not Available Not Avai lable azithromyci n 250 mg tablet TAKE TWO TABLETS BY MOUTH AT ONCE ON THE FIRST DAY THEN TAKE ONE DAILY THEREAFTE R 06/08 completed Not Available Not Available Not Available benzonatate 200 mg capsule TAKE ONE CAPSULE BY MOUTH THREE TIMES A DAY 06/08 completed Not Available Not Available Not Available sucralfate 100 mg/mL oral suspension SWISH 10ML BY MOUTH AND SWALLOW 4 TIMES DAILY USE AFTER FOOD/DRIN K 12/08 completed Not Available Not Available Not Available sucralfate 1 gram tablet TAKE ONE TABLET BY MOUTH FOUR TIMES A DAY DIRECTED FOR 14 DAYS FOR ULCER 10/25 completed Not Available Not Available Not Available famotidine 40 mg tablet TAKE ONE TABLET BY MOUTH EVERY DAY DIRECTED 12/08 completed Not Available Not Available Not Available sumatriptan 50 mg tablet TAKE 1 TABLET BY MOUTH FOR MIGRAINE HEADACHE MAY REPEAT ONCE AFTER 2 HOURS IF HEADACHE REOCCURS active Not Available Not Available No t Available famotidine 20 mg tablet TAKE ONE TABLET BY MOUTH TWICE A DAY 12/08 completed Not Available Not Available Not Available pantoprazol e 40 mg tablet,benny yed release TAKE ONE TABLET BY MOUTH EVERY DAY FOR GERD active Not Available Not Available No t Available trazodone 150 mg tablet TAKE 1 AND 1/2 TABLETS BY MOUTH AT BEDTIME FOR INSOMNIA active Not Available Not Available No t Available omeprazole 20 mg capsule,del ayed release TAKE ONE in the AM and ONE in PM. 12/08 completed Not Available Not Available Not Available montelukast 10 mg tablet TAKE ONE TABLET BY MOUTH EVERY DAY FOR ALLERGIES active Not Available Not Available No t Available nystatin 100,000 unit/gram topical powder APPLY TO AFFECTED AREA(S) TOPICALLY TWO TIMES A DAY active Not Available Not Available No t Available polyethylen e glycol 3350 17 gram/dose oral powder Take 17 g every day by oral route as directed for 30 days, for constipat ion. 2023 active Not Available Not Available Not Avai lable hydroxyzine HCl 10 mg tablet TAKE ONE TO TWO TABLETS BY MOUTH TWICE A DAY NEEDED FOR ITCHING OR STRESS active Not Available Not Available No t Available fluticasone propionate 50 mcg/actuati on nasal spray,suspe nsion SPRAY ONE SPRAY IN EACH NOSTRIL EVERY DAY DIRECTED active Not Available Not Available No t Available clotrimazol e 1 % topical cream APPLY TO THE AFFECTED AND SURROUNDI NG AREAS OF SKIN BY TOPICAL ROUTE 2 TIMES PER DAY IN THE MORNING AND EVENING 2023 active Not Available Not Available Not Avai lable Bactrim DS 800 mg-160 mg tablet Take 2 tablet by mouth twice a day 02/16 completed Not Available Not Available Not Available duloxetine 30 mg capsule,del ayed release TAKE ONE CAPSULE BY MOUTH EVERY DAY active Not Available Not Available No t Available duloxetine 60 mg capsule,del ayed release TAKE ONE CAPSULE BY MOUTH EVERY DAY 12/08 completed Not Available Not Available Not Available omeprazole 06/08 completed Not Available Not Available Not Available multivitami n active Not Available Not Available Not Available duloxetine 40 mg capsule,del ayed release TAKE ONE CAPSULE BY MOUTH EVERY DAY 12/08 completed Not Available Not Available Not Available Vitals Date Recorded Body height Body mass index (BMI) Body weight Respiratory rate Body temperature Oxygen saturation Oxygen saturation in Arterial blood by Pulse oximetry Heart rate Systolic blood pressure Diastolic blood pressure Provider Name and Address Organization Details Last Updated DateTime 4 160.02 cm 31.4 kg/m2 88977.8 5 g 16 /min 97.4 [degF] 97 % 97 % 88 /min 129 mm[Hg] 82 mm[Hg] Vicki Perry MA [facility] 4 15:39:46 Date Recorded Body height Body mass index (BMI) Body weight Body temperature Oxygen saturation Oxygen saturation in Arterial blood by Pulse oximetry Heart rate Systolic blood pressure Diastolic blood pressure Provider Name and Address Organization Details Last Updated DateTime 4 160.02 cm 31.7 kg/m2 74636.0 3 g 97.9 [degF] 97 % 97 % 87 /min 121 mm[Hg] 74 mm[Hg] Farheen Huffman MA [facility], [facility] 4 15:11:21 Date Recorded Body height Body mass index (BMI) Body weight Oxygen saturation Oxygen saturation in Arterial blood by Pulse oximetry Heart rate Body temperature Systolic blood pressure Diastolic blood pressure Provider Name and Address Organization Details Last Updated DateTime 4 160.02 cm 30.5 kg/m2 19415.5 9 g 98 % 98 % 82 /min 98.4 [degF] 138 mm[Hg] 77 mm[Hg] Farheen Huffman MA [facility] 4 10:14:57 Date Recorded Body height Oxygen saturation Oxygen saturation in Arterial blood by Pulse oximetry Heart rate Respiratory rate Body temperature Systolic blood pressure Diastolic blood pressure Provider Name and Address Organization Details Last Updated DateTime 4 160.02 cm 98 % 98 % 80 /min 18 /min 97.6 [degF] 134 mm[Hg] 87 mm[Hg] Amanda Blacketer [facility] 4 10:56:53 Date Recorded Body height Body mass index (BMI) Body weight Heart rate Oxygen saturation Oxygen saturation in Arterial blood by Pulse oximetry Body temperature Systolic blood pressure Diastolic blood pressure Provider Name and Address Organization Details Last Updated DateTime 4 160.02 cm 31.8 kg/m2 32386.8 3 g 86 /min 97 % 97 % 97.7 [degF] 127 mm[Hg] 77 mm[Hg] Farheen Huffman MA [facility] 4 09:08:53 Social History Question Answer Notes LastModified by Organizat ion Details LastModified Time Tobacco Smoking Status Former Smoker Farheen Huffman MA null, [facility] 06/08/2023 14:15:20 When Did You Quit Smoking? 6-10yearssi [email or web address] rette Information not available 12/09/2023 Would You Say That, In General, Your Health Is Fair [email or web address] Information not available 09/13/2023 Women Aged 18-50 - Would You Like To Become In The Next Year? (Female Patients Only) No [email or web address] Information not available 09/13/2023 How Often Does Anyone, Including Family, Physically Hurt You? Never [email or web address] Information not available 09/13/2023 How Often Does Anyone, Including Family, Insult Or Talk Down To You? Never Information no t available 09/13/2023 How Often Does Anyone, Including Family, Threaten You With Harm? Never [email or web address] Information not available 09/13/2023 How Often Does Anyone, Including Family, Scream Or Curse At You? Never [email or web address] Information not available 09/13/2023 Within The Past 12 Months, You Worried That Your Food Would Run Out Before You Got Money To Buy More. Never True [email or web address] Information n ot available 09/13/2023 Within The Past 12 Months, The Food You Bought Just Didn't Last And You Didn't Have Money To Get More. Never True [email or web address] Information not available 09/13/2023 How Hard Is It For You To Pay For The Very Basics Like Food, Housing, Medical Care, And Heating? Would You Say It Is: Not Hard At All [email or web address] Information not available 09/13/2023 In The Past 12 Months, Has Lack Of Reliable Transportation Kept You From Medical Appointments, Meetings, Work Or From Getting Things Needed For Daily Living? No [email or web address] Information not available 09/13/2023 What Is Your Housing Situation Today? I Have Housing. [email or web address] Information not available 09/13/2023 How Often In The Past Year Have You Used Marijuana (including Smoking, Vaping, Dabbing, Or Edibles)? Never [email or web address] Information not available 09/13/2023 How Often In The Past Year Have You Used Prescription Medications That Were Not Prescribed To You? Never [email or web address] Information not available 09/13/2023 How Often In The Past Year Have You Taken Your Own Prescription Medication More Than The Way It Was Prescribed Or For Different Reasons Than Its Intended Purpose? Never [email or web address] Information not available 09/13/2023 How Often In The Past Year Have You Used Other Drugs (for Example, Heroin, Cocaine, Meth, Salvia, Inhalants)? Never Information not available 09/13/2023 Have You Ever Used IV Drugs? No Information not available 09/13/2023 Date Of Most Recent SBINS 09/13/2023 [email or web address] Information not available 09/13/2023 What Was The Date Of Your Most Recent Tobacco Screening? 07/12/2023 [email or web address] Information n ot available 07/12/2023 What Is Your Current Pack Years? 20-29packye ars [email or web address] Information not available 06/08/2023 At What Age Did You Start Smoking Tobacco? 14 [email or web address] Information not available 06/08/2023 How Much Tobacco Do You Smoke? 1 PPD [email or web address] Information not available 06/08/2023 Has Tobacco Cessation Counseling Been Provided? No Information not available 12/09/2023 On What Date Was Tobacco Cessation Counseling Provided? 12/09/2023 Information not available 12/09/2023 How Many Years Have You Smoked Tobacco? 25 Information not available 06/08/2023 Do You Or Have You Ever Used Any Other Forms Of Tobacco Or Nicotine? No Information not available 06/08/2023 Sex: Female Functional Status None recorded. Mental Status None recorded. Family History Relationship Description Onset Age of this Age Resolved Age Notes Notes:Mom: of Uterus ca ncer at 54 Paternal Grandfather: Plantar Fac. both feet Maternal Great Aunt, Grandmother: Diabetes Paternal: Hypertension Medical History No medical history recorded. Gynecological HistoryNo gynecological history recorded. Obstetrics History GPAL:G 2 P 1 1 0 0 Type Value Full Term 1 Premature 1 Total 2 Immunizations Vaccine Type Date Status Provider Name and Address Organization Details Recorded Time Tdap 01/25/2022 completed Not Available [facility] 06:12:04 Td(adult) unspecified formulation 01/28/2012 completed Not Available [facility] 03/17/2023 06:12:04 influenza, unspecified formulation 01/05/2015 completed Not Available [facility] 03/17/2023 06:12:04 Past Encounters Encounter ID Performer Location Encounter Start Date Encounter Closed Date Diagnosis/Indication Diagnosis SNOMED-CT Code [id number] DENI ALVARADO MD [address] [address] 03/21/2023 11:27:48 03/21/2023 12:45:46 Acute pharyngitis [id number] Acute navarro l bronchiolitis [id number] IRINA OMALLEY [address] [place] [address] 06/08/2023 13:52:52 06/08/2023 15:14:03 Gastroesophageal reflux disease without esophagitis [id number] Mixed anxi ety and depressive disorder 017741192 Posttrauma tic stress disorder 41662904 Chronic pain 58378681 Migraine 24282247 Obstructiv e sleep apnea syndrome 71677209 Sleep shubham marie disturbance 27079132 Bilateral plantar fasciitis [id number] 108 Family his tory of malignant neoplasm of uterus 775008792 Past pregn malina history of gestational diabetes mellitus [id number] LUIS GORDON PA-C [address] [place] [address] 07/12/2023 15:11:04 07/12/2023 16:09:22 Bite of insect [id number] [facility] [address] [place] [address] 09/13/2023 14:57:11 09/13/2023 16:21:26 Mixed anxiety and depressive disorder 643870069 Posttrauma tic stress disorder 79238403 Chronic pain 03781285 Migraine 72885261 Obstructiv e sleep apnea syndrome 89598851 Sleep shubham marie disturbance 66695534 Bilateral plantar fasciitis [id number] 108 Family his tory of malignant neoplasm of uterus 607045960 Past pregn malina history of gestational diabetes mellitus 560426757 Adult heal th examination 514425700 Gastroesop hageal reflux disease without esophagitis 314451951 Abnormal urine 357304141 Screening mammography 24 246103 Thyroid nodule 175280602 [id number] FELICIANO PEREZ [facility] [address] [place] [address] 10/26/2023 09:56:08 10/26/2023 10:35:25 Contact dermatitis caused by plants 593195653 [id number] LUIS GORDON PA-C [address] [place] [address] 12/09/2023 10:16:04 12/09/2023 11:21:45 Tinea cruris 219339844 Pruritic rash 83045723 [id number] Sissy Matos [facility] [address] [place] [address] 12/18/2023 08:55:21 12/18/2023 09:52:50 Gastroesophageal reflux disease without esophagitis 463608538 Mixed anxi ety and depressive disorder 454647447 Posttrauma tic stress disorder 19510686 Chronic pain 26421424 Migraine 85427984 Obstructiv e sleep apnea syndrome 77899731 Sleep shubham marie disturbance 16428616 Family his tory of malignant neoplasm of uterus 892391791 Bilateral plantar fasciitis [id number] 108 Screening mammography 24 499312 Thyroid nodule 812648952 Chronic constipation 236 164762 Tinea cruris 127097714 Contact de rmatitis caused by plants 209720076 Seasonal allergy 9050852 04 Health Concerns Section Related Observation LastModified by Organization Detai ls LastModified Time None Recorded Concern Status LastModified by Organization Details LastModified Time None Recorded Advance Directives Directive None Recorded Payers Encounter Date Sequence Insurance Name Policy Number Policy Garcia Covered Member ID Garcia Member ID Guarantor Name 07/12/2023 1 [place] [id number] Barbara Broderick Fox [id number] Barbara Meggan Braxton 09/13/2023 1 [place] [id number] Barbara Broderick Fox [id number] Barbara Broderick Braxton 10/26/2023 1 [place] [id number] Barbara Broderick Fox [id number] Barbara Broderick Braxton 12/09/2023 1 [place] [id number] Barabra Broderick Braxton [id number] Barbara Broderick Braxton Notes Date Note Type Note Provider Name and Address Organization Details Recorded Time 07/12/2023 text/html HPI Notes: Barbara is a 53-year-old female who was bitten or stung by something yesterday about 145 while she was at the [employer] playroom with some kids from work. She sat on a bench put her arm up on it and felt something like a sting. Subsequently the area became a little bit red and swollen and almost hive-like. She cleaned it with health editor and then applied an anti-itch cream which greatly improved the symptoms. Today there is a small scab and sensation as if there is something under the skin. She has not done anything to try to remove it. [address], [place], [address], [facility]. 07/12/2023 16:09:15 09/13/2023 text/html HPI Notes: Barbara presents to [facility] today for her annual wellness preventative exam, and for recent ER follow-up with diagnosis of gastritis. Recently establish care with [facility], transfered care from [facility] ([facility]). Unfortunately, we are still awaiting prior medical records for review. Medical history to include anxiety and depression, chronic pain, DOMI, GERD, history of migraines. Social history? employment? employed at [employer]. Household? spouse, adult son and his girlfriend. Has 2 adult children, 1 living at home. IRINA OMALLEY [address], [place], [address], [facility], [facility]. 09/17/2023 04:42:39 10/26/2023 text/html HPI Notes: Barbara presents to [facility] today for evaluation of acute rash to bilateral lower legs. Symptoms started Monday evening. rash is pruritic. Has been treating with OTC hydrocortisone cream with good effect. Denies any spreading of the rash. Has been outdoors on several occasions over the past week, including lawn care (weed whacking) over the weekend. Denies any recent fevers or chills. Denies any shortness of breath, rhinitis, nausea vomiting or diarrhea. Acute situational stressors related to personal health, as well as health of her son (recent episode of appendicitis). IRINA OMALLEY [address], [place], [address], [facility], [facility]. 10/26/2023 12:47:59 12/09/2023 text/html HPI Notes: Barbara is a 53-year-old female who presents with concerns for rash that is been under the breast for about 3 weeks which she endorses is itchy and painful. In the last 2 days she feels like she is developed a red itchy rash on her legs. She has been applying bacitracin ointment for about 2 days and then switches to something she describes as a first aid cream. States its like bacitracin but in cream form. She is also been using a hydrocortisone 10 all with minimal relief. She does endorse that she has been stung by a bee walking in her yard once a week for the last 3 weeks. She otherwise has not had any new concerning environmental exposures. She has never had rash like either of these prior. LUIS GORDON PA-C [address], [place], [address], [facility]. 12/09/2023 12:33:02 OBGyn Episode No OBEpisode recorded.
--- OUTSIDE RECORDS SUMMARY | 2023-12-29 09:29 | XMS_ITS | Encounter Summary ---
Author Organization [facility] Address [address] [place] [address] Care Team Providers Care Larry Car Operator Name Role Phone Unknown, Provider Primary Care Provider [phone] Reason for Visit * Reason Onset Date Comments Results 05/27/2020 Encounter Details Date Type Department Care Team (Late st Contact Info) Description 05/27/[address] [facility] Ophthalmology - [address] [id number] Hemant Cantor MD [address] [place] [address], [address] [place] [address] Results Social History Tobacco Use Types Packs/Day Years [...] on file documented as of this encounter Miscellaneous Notes * Telephone Encounter - FerchoLauryn shahley - 05/27/2020 1357 EST Pt scheduled for telemed * Telephone Encounter - Rajesh Sanchez - 05/27/2020 0955 EST Patient requests results of MRI completed 05/18/20. documented in this encounter Plan of Treatment Not on file documented as of this encounter Visit Diagnoses Not on filedocumented in this encounter Care Teams Larry Car Operator Relationship Specialty Start Date End Date Unknown, Provider, PCP - General 03/17/15 11/04/22 documented as of this encounter
--- OUTSIDE RECORDS SUMMARY | 2023-12-29 09:29 | XMS_ITS | Encounter Summary ---
Author Organization [facility] Address [address] [place] [address] Care Team Providers Care Urban Planning Professor Name Role Phone Unknown, Provider Primary Care Provider [phone] Reason for Visit * (Routine) - Receiving Office to Obtain Authorization Specialty Diagnoses / Procedures Referred By Harlan marc Referred To Contact Procedures MR OUTSIDE IMAGES NEURO Unknown, Provider, Referral ID Status Reason Start Date Expiration Date Visits Requested Visits Authorized [id number] Receiving Office to Obtain Authorization 05/18/2020 1 1 Encounter Details Date Type Department Care Team (Latest Contact Info) Description 05/18/2020 18:17 EST - 05/18/2020 23:59 EST Hospital Encounter [facility] Secondary Reads [place] Discharge Disposition: Home or [...] Procedure Name Priority Date/Time Associated Diagnosis Comments MR OUTSIDE IMAGES NEURO Routine 05/18/2020 18:17 EST documented in this encounter Results * MR OUTSIDE IMAGES NEURO (05/18/2020 18:17 EST) Narrative 05/18/2020 18:17 EST This is a non-reportable exam. Provider Unknown MD [facility] OTHER IMAGING OR DERABLES documented in this encounter Visit Diagnoses Not on filedocumented in this encounter Care Teams Urban Planning Professor Relationship Specialty Start Date End Date Unknown, Provider, PCP - General 03/17/15 11/04/22 documented as of this encounter
--- OUTSIDE RECORDS SUMMARY | 2023-12-29 09:29 | XMS_ITS | Encounter Summary ---
Author Organization [facility] Address [address] [place] [address] Care Team Providers Care Systems Test Analyst Name Role Phone Unknown, Provider Primary Care Provider [phone] Wilfredo Morgan DO Primary Care Provider [phone] Encounter Details Date Type Department Care Team (Latest Contact Info) Description 01/27/2022 Lab Requisition [facility] Pathology & Laboratory Medicine - [facility] [address] [place] [address] Wilfredo Morgan DO [address] [place] [address] Encounter for screening for malignant neoplasm of cervix; Encounter for screening for human papillomavirus (HPV) Social History Tobacco Use Types Packs/Day Years [...] Procedure Name Priority Date/Time Associated Diagnosis Comments PAP TEST Today 01/25/2022 15:50 EDT Encounter for screening for malignant neoplasm of cervix Encounter for screening for human papillomavirus (HPV) HPV DNA DETECTION WITH GENOTYPING, PCR Today 01/25/2022 15:50 EDT Encounter for screening for malignant neoplasm of cervix Encounter for screening for human papillomavirus (HPV) documented in this encounter Results * HUMAN PAPILLOMAVIRUS (HPV) DETECTION-HIGH RISK TYPES (01/25/2022 15:50 EDT) HPV other High Risk types, PCR Negative Negative 02/01/2022 16:06 EDT [facility] Comment:No E6 or E7 mRNA is detected from HPV types 16,18,31,33,35,39,45,51,52,56,58,59,66, and 68 by compliance spec mediated amplification. Papanicolaou smear specimen (specimen) CERVIX UTERI STRUCTURE / Unknown 01/25/2022 15:50 EDT 01/31/2022 16:37 EDT Wilfredo Morgan DO MICROBIOLOGY - GENER AL ORDERABLES [facility] [address] [place] [address] * PAP TEST (01/25/2022 15:50 EDT) Specimens A. Cervix and/or Endocervix DEVICE, ThinPrep Imaging System with Manual Evaluation 02/01/2022 16:06 T [facility] Specimen Adequacy Satisfactory for Evaluation - assessment of transformation zone component not applicable ( e.g. atrophy, vaginal sample, hysterectomy) 02/01/2022 16:06 EDT [facility] General Categorization Negative for intraepithelial lesion or malignancy 02/01/2022 16:06 T [facility] Attestation . 02/01/2022 16:06 T [facility] at 1606 Clinical History SEE BELOW 02/02/20 16:06 EDT [facility] HPV The result for the Human Papillomavirus (HPV) Detection-High Risk Types is Negative. No E6 or E7 mRNA is detected from HPV types 16,18,31,33,35,39 ,45,51,52,56,58,5 9,66, and 68 by compliance spec mediated amplification.Anjali ting was performed on specimen [id number] and was resulted on 02/01/2022 1603 EDT by MARIA ELENA, LAB INSTRUMENT RESULTS IN 02/01/2022 16:06 EDT [facility] Performing Lab [facility] 02/01/2022 16:06 EDT [facility] Scanned Images 02/01/2022 16:06 EDT [facility] Papanicolaou smear specimen (specimen) CERVIX UTERI STRUCTURE / Unknown 01/25/2022 15:50 EDT 01/27/2022 12:50 EDT Wilfredo Morgan DO PATHOLOGY ORDERABLES Performing Organization Address City/State/[facility] Co de Phone Number [facility] [address] [place] [address] documented in this encounter Visit Diagnoses Diagnosis Encounter for screening for malignant neoplasm of cervix Screening for malignant neoplasm of the cervix Encounter for screening for human papillomavirus (HPV) Special screening examination for human papillomavirus (HPV) documented in this encounter Care Teams Systems Test Analyst Relationship Specialty Start Date End Date Unknown, Provider, PCP - General 03/17/15 11/04/22 Wilfredo Morgan DO [address] [place] [address] PCP - General Family Medicine - Primary Care 11/05/22 documented as of this encounter
--- OUTSIDE RECORDS SUMMARY | 2023-12-29 09:29 | XMS_ITS | Encounter Summary ---
Author Organization [facility] Address [address] [place] [address] Care Team Providers Care Spudder Name Role Phone Unknown, Provider Primary Care Provider [phone] Reason for Visit * (Routine) - Receiving Office to Obtain Authorization Specialty Diagnoses / Procedures Referred By Harlan marc Referred To Contact Procedures MR OUTSIDE IMAGES NEURO Unknown, Provider, Referral ID Status Reason Start Date Expiration Date Visits Requested Visits Authorized [id number] Receiving Office to Obtain Authorization 05/18/2020 1 1 Encounter Details Date Type Department Care Team (Latest Contact Info) Description 05/15/2020 - 05/15/2020 23:59 EST Hospital Encounter [facility] Secondary Reads [place] Discharge Disposition: [...] Comments MR OUTSIDE IMAGES NEURO Routine 05/18/2020 18:22 EST documented in this encounter Results * MR OUTSIDE IMAGES NEURO (05/18/2020 18:22 EST) Narrative 05/18/2020 18:22 EST This is a non-reportable exam. Provider Unknown MD [facility] OTHER IMAGING OR DERABLES documented in this encounter Visit Diagnoses Not on filedocumented in this encounter Care Teams Spudder Relationship Specialty Start Date End Date Unknown, Provider, PCP - General 03/17/15 11/04/22 documented as of this encounter
--- OUTSIDE RECORDS SUMMARY | 2023-12-29 09:29 | XMS_ITS | Clinical Summary ---
Author Organization [facility] Address [address] [place] [address] Care Team Providers Care Prosthetic Technician Name Role Phone Wilfredo Morgan Kristan SCHNEIDER Primary Care Provider [phone] Allergies No known active allergies Medications Medication Sig Dispensed Refills Start Date End Date Status trazodone HCl (TRAZODONE ORAL) Take 250 mg by mouth at bedtime. Active amitriptyline (ELAVIL) 100 mg tablet Take 100 mg by mouth as needed for Sleep. Active cyclobenzaprine (FLEXERIL) 10 mg tablet Take 10 mg by mouth as needed for Muscle Spasms. Active calcium carbonate/vitamin D3 (CALCIUM 600 + D,3, ORAL) Take by mouth. Active MAGNESIUM CHLORIDE ORAL Take by mouth. Active FISH OIL-DHA-EPA ORAL Take by mouth. Active MEDICAL MARIJUANA Take 2 mL by mouth daily. Active MEDICAL MARIJUANA 1.5 bowls daily Ac tive LORazepam (ATIVAN) 2 mg tablet Take 1 Tab by mouth as needed for Anxiety. Daily Max: 4 mg 2 Tab 05/12/2020 Active Active Problems No known active problems Encounters Date Type Department Care Team Description 12/01/2023 Lab Requisition [facility] Pathology & Laboratory Medicine [address] [address] Jorge Sanches MD Dysphagia, unspecified; Heartburn; Epigastric pain 10/03/2023 Lab Requisition [facility] Pathology & Laboratory Medicine [address] [address] Outr Resulting Lab, Provider from Last 3 Months Family History Medical History Relation Comments Cataract Father Hypertension Father Cancer Maternal Grandfather stomach Diabetes Maternal Grandmother Glaucoma Maternal Grandmother Cancer Mother uterine Stroke Mother Diabetes Other Glaucoma Other Cancer Paternal Grandfather pancreatic Diabetes Paternal Grandmother Macular Degeneration Neg Hx Relation Status Comments Father Maternal Grandfather Maternal Grandmother Mother (Age 54) Other Paternal Grandfather Paternal Grandmother Social History Tobacco Use Types Packs/Day Years [...] on file Sexual Orientation Not on file Obstetrics History Plan of Treatment Health Maintenance Due Date Last Done Comments Hepatitis B Vaccine (1 of 3 - 19+ 3-dose series) 01/18 COVID-19 Vaccine (2022- season) 2023 Hepatitis C Screen Completed 08/18/2020 Procedures Procedure Name Priority Date/Time Associated Diagnosis Comments SURGICAL PATHOLOGY Today 11/30/2023 9:00 EDT Dysphagia, unspecified Heartburn Epigastric pain H. PYLORI ANTIGEN Routine 10/02/2023 12: 00 EDT HEPATITIS C AB W REFLEX TO HCV RNA BY PCR Routine 08/18/2020 7:50 EDT from Last 3 Months or Most Recently Relevant to Health Maintenance Results * SURGICAL PATHOLOGY (11/30/2023 9:00 EDT) Note to Patient The following pathology results have been interpreted by your pathologist and may be available to you before your health provider has had the opportunity to review them. Please allow time for your provider to receive these results and explore management options, if applicable. 12/06/2023 16:21 EDT [facility] Final Diagnosis A. DUODENUM, BIOPSY: - Duodenal mucosa with no significant pathologic change. - No evidence of gluten-sensitive enteropathy (celiac sprue). B. DUODENUM, BULB, BIOPSY: - Small bowel mucosa with no significant pathologic change. C. STOMACH, ANTRUM, BIOPSY: - Antral-type mucosa with a patchy, mild chronic gastritis with rare/focal activity. - No intestinal metaplasia or dysplasia. - No Helicobacter pylori identified, confirmed by negative immunostain. D. STOMACH, BODY, BIOPSY: - Oxyntic-type mucosa with no significant pathologic change. - No intestinal metaplasia or dysplasia. - No evidence of Helicobacter pylori on routine H&E stain. E. ESOPHAGUS, DISTAL, BIOPSY: - Benign squamous epithelium with no significant pathologic change. - No increase in intraepithelial eosinophils. F. ESOPHAGUS, MID, BIOPSY: - Benign squamous epithelium with no significant pathologic change. - No increase in intraepithelial eosinophils. 12/06/2023 16:21 [facility] Diagnosis Comment The technical component of the specimen processing was performed at the [facility] Pathology Department, [address] [place] [address] (CLIA [id number]). The professional component of the specimen evaluation (slide review and issuing of the final diagnosis) was performed at [facility], [address] [place] [address] (CLIA License Number [id number]). 12/06/2023 16:21 [facility] Attestation By the signature below, the attending physician certifies that they have 1) personally conducted a gross and/or microscopic examination of the described specimen(s), and/or personally interpreted the results of laboratory testing of the described specimen(s), and 2) personally rendered or confirmed the above diagnosis. 12/06/2023 16:21 [facility] at 1621 Ancillary Studies Immunoperoxidase stains were performed on this case to further evaluate for Helicobacter pylori. ANTIBODY(CLONE)(BLOCK ): RESULT H pylori (Rabbit Monoclonal (SP48), [place])(C1): Negative for definitive organisms within the tissue fragments The technical component of the above immunohistochemical stain(s) was performed at the [facility] Pathology Department, [address] [place] [address] (CLIA [id number]), and the professional interpretation component was performed at the [facility] Pathology Department, [address] [address] (CLIA [id number]). NOTE: One or more of the reagents used in immunohistochemical testing in this case may not have been cleared or approved by the U.S. Food and Drug Administration (FDA). The FDA has determined that such clearance or approval is not necessary. These tests are used for clinical purposes. They should not be regarded as investigational or for research. These reagents' performance characteristics have been determined by [facility] and/or by the referring laboratory. The positive and negative controls worked appropriately. If immunoperoxidase staining has been performed on alcohol fixed cytology specimens, which has not been fully validated, the assays should be interpreted with caution and correlated with clinical data. This laboratory is certified under the Clinical Laboratory Improvement Amendments of 1988 (CLIA-88) as qualified to perform high complexity clinical laboratory testing. 12/06/2023 16:21 [facility] Clinical History GERD, pyrosis, generalized abdominal pain, vomiting, bloating, diarrhea; clinical diagnosis code: R10.13, R12, R13.10 12/06/2023 16:21 [facility] Gross Description A. Received in formalin labelled with proper patient identification (initials S, C) and duodenum are 3 ramirez tissue fragments (0.2 x 0.1 x 0.1 cm to 0.4 x 0.1 x 0.1 cm). Entirely submitted in A1. B. Received in formalin labelled with proper patient identification (initials S, C) and duodenal bulb is a single rmairez tissue fragment (0.2 x 0.2 x 0.2 cm). Entirely submitted in B1. C. Received in formalin labelled with proper patient identification (initials S, C) and gastric antrum are 2 pale ramirez focally ramirez tissue fragments (0.3 x 0.1 x 0.1 cm and 0.3 x 0.2 x 0.1 cm). D. Received in formalin labelled with proper patient identification (initials S, C) and gastric body is a single pale tissue fragment (0.4 x 0.1 x 0.1 cm). Entirely submitted in D1. E. Received in formalin labelled with proper patient identification (initials S, C) and distal esophagus are two white focally ramirez tissue fragments (0.2 x 0.2 x 0.1 cm and 0.3 x 0.2 x 0.1 cm). Entirely submitted in E1. F. Received in formalin labelled with proper patient identification (initials S, C) and mid esophagus are three white focally ramirez tissue fragments (0.1 x 0.1 x 0.1 cm to 0.3 x 0.1 x 0.1 cm). Entirely submitted in F1. Johanne Grigsby 12/01/2023 10:07 12/06/2023 16:21 EDT [facility] Performing Lab [facility] 12/06/2023 16:21 EDT [facility] Scanned Images 12/06/2023 16:21 EDT [facility] Tissue ESOPHAGEAL STRUCTURE / Unknown 11/30/2023 9:00 EDT 12/01/2023 8:17 EDT Tissue specimen (specimen) STRUCTURE OF SMALL INTESTINE / Unknown 11/30/2023 9:00 EDT 12/01/2023 8:17 EDT Tissue specimen (specimen) STOMACH STRUCTURE / Unknown 11/30/2023 9:00 EDT 12/01/2023 8:17 EDT Tissue specimen (specimen) STOMACH STRUCTURE / Unknown 11/30/2023 9:00 EDT 12/01/2023 8:17 EDT Tissue specimen (specimen) ESOPHAGEAL STRUCTURE / Unknown 11/30/2023 9:00 EDT 12/01/2023 8:17 EDT Tissue specimen (specimen) ESOPHAGEAL STRUCTURE / Unknown 11/30/2023 9:00 EDT 12/01/2023 8:17 EDT Jorge Sanches MD PATHOLOGY ORD ERABLES [facility] [address] [place] [address] * H. PYLORI ANTIGEN (10/02/2023 12:00 EDT) H. Pylori Negative Negative 10/06/2023 14:53 EDT [facility] Comment:Indicates the absenc e of H. pylori stool antigen, (or the level of antigen is below that which can be detected by the assay) Feces SPECIMEN FROM RECTUM / Unknown 10/02/2023 12:00 EDT 10/03/2023 17:19 EDT Narrative [facility] - 10/06/2023 14:53 EDT New Liaison XL testing method used as of 02/27/2023 Provider Outr Resulting Lab MICROBIOLOGY - GENERAL ORDERABLES [facility] [address] [place] [address] * HEPATITIS C AB W REFLEX TO HCV RNA BY PCR (08/18/2020 7:50 EDT) Hep C Antibody Negative Negative 08/19/2020 10:18 EDT [facility] Blood VENOUS BLOOD / Unknown 08/18/2020 7:50 EDT 08/18/2020 15:54 EDT Provider Outr Resulting Lab CHEMISTRY & BLOOD GAS ORDERABLES Performing Organization Address City/[facility] Co de Phone Number [facility] [address] [place] [address] from Last 3 Months or Most Recently Relevant to Health Maintenance Care Teams Prosthetic Technician Relationship Specialty Start Date End Date Wilfredo Morgan DO [address] [place] [address] PCP - General Family Medicine - Primary Care 11/05/22
--- OUTSIDE RECORDS SUMMARY | 2023-12-29 09:29 | XMS_ITS | Encounter Summary ---
Author Organization [facility] Address [address] [place] [address] Care Team Providers Care Statement Clerk Name Role Phone Unknown, Provider Primary Care Provider [phone] Reason for Visit * Reason Onset Date Comments Medical Records 09/16/2020 Encounter Details Date Type Department Care Team (Late st Contact Info) Description 09/16/2020 Telephone [facility] Ophthalmology - [facility] [address] [place] [address] Hemant Cantor MD [address] [facility], [facility] [address] [place] [address] Medical Records Social History Tobacco Use Types Packs/Day Years [...] encounter Miscellaneous Notes * Telephone Encounter - Sonya Key - 09/16/2020 1346 EDT Patient being seen today on an emergency basis by Dr. Garcia in [place]. Dr. Cantor's April officenotes faxed to [phone]. documented in this encounter Plan of Treatment Not on file documented as of this encounter Visit Diagnoses Not on filedocumented in this encounter Care Teams Statement Clerk Relationship Specialty Start Date End Date Unknown, Provider, PCP - General 03/17/15 11/04/22 documented as of this encounter
--- OUTSIDE RECORDS SUMMARY | 2023-12-29 09:29 | XMS_ITS | Encounter Summary ---
Author Organization [facility] Address [address] [place] [address] Care Team Providers Care Surgical Coordinator Name Role Phone Unknown, Provider Primary Care Provider [phone] Wilfredo Morgan DO Primary Care Provider [phone] Encounter Details Date Type Department Care Team (Late st Contact Info) Description 10/15/2020 Lab Requisition [facility] Pathology & Laboratory Medicine - [address] [address] Steve Sheffield MD [address] [place] [address] Nontoxic multinodular goiter Social History Tobacco Use Types Packs/Day Years [...] Procedure Name Priority Date/Time Associated Diagnosis Comments NON JACQUARD FIXER/FNA CYTOLOGY Today 10/14/2020 8:20 EDT Nontoxic multinodular goiter documented in this encounter Results * NON JACQUARD FIXER/FNA CYTOLOGY (10/14/2020 8:20 EDT) Final Diagnosis A. THYROID, LEFT, UNSPECIFIED GUIDANCE FINE-NEEDLE ASPIRATION: - Benign follicular nodule. See comment. 10/15/2020 14:09 EDT [facility] Diagnosis Comment Cytologic evaluation shows a scant but adequate specimen composed of variably sized groups of benign-apparing follicular cells and scattered macrophages. These findings are consistent with benign follicular nodule. 10/15/2020 14:09 EDT [facility] Attestation There was significant resident/fellow involvement in the diagnostic evaluation of this case. By the signature below, the attending physician certifies that they have personally conducted a gross and/or microscopic examination of the described specimens and rendered or confirmed the above diagnosis. 10/15/2020 14:09 EDT [facility] at 1408 Clinical History Multinodular thyroid; E04.2 10/15/2020 14:09 T [facility] Gross Description A. One vial of CytoLyt was received and processed by selective cellular enhancement technique. 10/15/2020 14:09 T [facility] Resident/Hunter w: Edwige Graham MD 10/15/2020 14:09 T [facility] Performing Lab [facility] 10/15/2020 14:09 T [facility] Scanned Images 10/15/2020 14:09 T [facility] Fine Needle Aspirate ENTIRE LEFT LOBE OF THYROID GLAND / Unknown 10/14/2020 8:20 EDT 10/15/2020 7:36 EDT Steve Sheffield MD PATHOLOGY ORDERABLES [facility] [address] [place] [address] documented in this encounter Visit Diagnoses Diagnosis Nontoxic multinodular goiter documented in this encounter Care Teams Surgical Coordinator Relationship Specialty Start Date End Date Unknown, Provider, PCP - General 03/17/15 11/04/22 Wilfredo Morgan DO [address] [place] [id number] PCP - General Family Medicine - Primary Care 11/05/22 documented as of this encounter
--- OUTSIDE RECORDS SUMMARY | 2023-12-29 09:29 | XMS_ITS | Encounter Summary ---
Author Organization [facility] Address [address] [place] [address] Care Team Providers Care Extraction Operator Name Role Phone Unknown, Provider Primary Care Provider [phone] Reason for Visit * (Routine) - Receiving Office to Obtain Authorization Specialty Diagnoses / Procedures Referred By Harlan marc Referred To Contact Procedures MR OUTSIDE IMAGES NEURO Unknown, Provider, Referral ID Status Reason Start Date Expiration Date Visits Requested Visits Authorized [id number] Receiving Office to Obtain Authorization 05/18/2020 1 1 Encounter Details Date Type Department Care Team (Latest Contact Info) Description 05/12/2020 - 05/12/2020 23:59 EST Hospital Encounter [facility] Secondary Reads [place] Discharge Disposition: [...] Comments MR OUTSIDE IMAGES NEURO Routine 05/18/2020 18:19 EST documented in this encounter Results * MR OUTSIDE IMAGES NEURO (05/18/2020 18:19 EST) Narrative 05/18/2020 18:19 EST This is a non-reportable exam. Provider Unknown MD [facility] OTHER IMAGING OR DERABLES documented in this encounter Visit Diagnoses Not on filedocumented in this encounter Care Teams Extraction Operator Relationship Specialty Start Date End Date Unknown, Provider, PCP - General 03/17/15 11/04/22 documented as of this encounter
--- OUTSIDE RECORDS SUMMARY | 2023-12-29 09:29 | XMS_ITS | Encounter Summary ---
Author Organization [facility] Address [address] [place] [address] Care Team Providers Care Internal Revenue Agent Name Role Phone Unknown, Provider Primary Care Provider [phone] Wiflredo Morgan DO Primary Care Provider [phone] Encounter Details Date Type Department Care Team (Late st Contact Info) Description 06/16/2021 Lab Requisition [facility] Pathology & Laboratory Medicine - [facility] [address] [place] [address] Outr Resulting Lab, Provider Social History Tobacco [...] Priority Date/Time Associated Diagnosis Comments [facility]OVID[facility]19 [facility] Today 06/16/2021 12:00 EST COVID-19 TESTING Routine 06/16/2021 12:0 0 EST documented in this encounter Results * COVID-19 TEST [facility] PCR (06/16/2021 12:00 EST) Swab 06/16/2021 12:0 0 EST 06/16/2021 22:04 EST Provider Outr Resulting Lab MICROBIOLOGY - GENERAL ORDERABLES Performing Organization Address [facility] de Phone Number [facility] [address] [place] [address] * COVID-19 TESTING (06/16/2021 12:00 EST) COVID-19 rt-PCR Result Negative Negative 06/17/2021 14:06 EST [facility] Comment: This test has [...] performed using the jose SARS-CoV-2 assay ([employer] on the Jose 6800 System Performing Lab Jose [address] [facility] 06/17/2021 14:06 EST [facility] Swab 06/16/2021 12:0 0 EST 06/16/2021 22:04 EST Provider Outr Resulting Lab MICROBIOLOGY - GENERAL ORDERABLES Performing Organization Address [facility] Co de Phone Number [facility] [address] [place] [phone] documented in this encounter Visit Diagnoses Not on filedocumented in this encounter Care Teams Internal Revenue Agent Relationship Specialty Start Date End Date Unknown, Provider, PCP - General 03/17/15 11/04/22 Wilfredo Morgan DO [address] [place] [address] PCP - General Family Medicine - Primary Care 11/05/22 documented as of this encounter
--- OUTSIDE RECORDS SUMMARY | 2023-12-29 09:29 | XMS_ITS | Referral Summary ---
Author Organization [facility] Address [address] [place] [address] Care Team Providers Care Production Line Welder Name Role Phone Wilfredo Morgan Kristan SCHNEIDER Primary Care Provider [phone] Encounters Date Type Department Care Team Description 12/01/2023 Lab Requisition [facility] Pathology & Laboratory [address] [address] Jorge Sanches MD Dysphagia, unspecified; Heartburn; Epigastric pain 10/03/2023 Lab Requisition [facility] Pathology & Laboratory [address] [address] Outr Resulting Lab, Provider from Last 3 Months Allergies No known active allergies Medications Medication [...] Active Active Problems No known active problems Social History Tobacco Use Types Packs/Day Years [...] on file Sexual Orientation Not on file Plan of Treatment Not on file Procedures Procedure Name Priority Date/Time Associated Diagnosis [...] management options, if applicable. 12/06/2023 16:21 EDT [facility] Final Diagnosis A. DUODENUM, BIOPSY: [...] No increase in intraepithelial eosinophils. 12/06/2023 16:21 [facility] Diagnosis Comment The technical component of the specimen processing was performed at the Pathology Department, [address] [place] [address] (CLIA [id number]). The professional component of the specimen evaluation (slide review and issuing of the final diagnosis) was performed at [facility], [address] [place] [address] (CLIA License Number [id number]). 12/06/2023 16:21 [facility] Attestation By the signature below, the attending physician certifies that they have 1) personally conducted a gross and/or microscopic examination of the described specimen(s), and/or personally interpreted the results of laboratory testing of the described specimen(s), and 2) personally rendered or confirmed the above diagnosis. 12/06/2023 16:21 [facility] at 1621 Ancillary Studies Immunoperoxidase stains were performed on this case to further evaluate for Helicobacter pylori. ANTIBODY(CLONE)(BLOCK ): RESULT H pylori (Rabbit Monoclonal (SP48), [place])(C1): Negative for definitive organisms within the tissue fragments The technical component of the above immunohistochemical stain(s) was performed at the Pathology Department, [address] [place] [address] (CLIA [id number]), and the professional interpretation component was performed at the [facility] Pathology Department, [address] [place] [address] (CLIA [id number]). NOTE: One or more of the reagents [...] reagents' performance characteristics have been determined by [facility] and/or by the referring laboratory. The positive [...] high complexity clinical laboratory testing. 12/06/2023 16:21 [facility] Clinical History GERD, pyrosis, generalized abdominal pain, vomiting, bloating, diarrhea; clinical diagnosis code: R10.13, R12, R13.10 12/06/2023 16:21 [facility] Gross Description A. Received in formalin labelled with proper patient identification (initials S, C) and duodenum are 3 ramirez tissue fragments (0.2 x 0.1 x 0.1 cm to 0.4 x 0.1 x 0.1 cm). Entirely submitted in A1. B. Received in formalin labelled with proper patient identification (initials S, C) and duodenal bulb is a single ramirez tissue fragment (0.2 x 0.2 x 0.2 [...] Johanne Grigsby 12/01/2023 10:07 12/06/2023 16:21 EDT [facility] Performing Lab [facility] 12/06/2023 16:21 EDT [facility] Scanned Images 12/06/2023 16:21 EDT [facility] Tissue ESOPHAGEAL STRUCTURE / Unknown [...] EDT Jorge Sanches MD PATHOLOGY ORD ERABLES [facility] [address] [place] [id number] * H. PYLORI ANTIGEN (10/02/2023 12:00 EDT) H. Pylori Negative Negative 10/06/2023 14:53 EDT [facility] Comment:Indicates the absenc e of H. pylori stool antigen, (or the level of antigen is below that which can be detected by the assay) Feces SPECIMEN FROM RECTUM / Unknown 10/02/2023 12:00 EDT 10/03/2023 17:19 EDT Narrative [facility] - 10/06/2023 14:53 EDT New Liaison XL testing method used as of 02/27/2023 Provider Outr Resulting Lab MICROBIOLOGY - GENERAL ORDERABLES [facility] [address] [place] [address] * HEPATITIS C AB W REFLEX TO HCV RNA BY PCR (08/18/2020 7:50 EDT) Hep C Antibody Negative Negative 08/19/2020 10:18 EDT [facility] Blood VENOUS BLOOD / Unknown 08/18/2020 7:50 EDT 08/18/2020 15:54 EDT Provider Outr Resulting Lab CHEMISTRY & BLOOD GAS ORDERABLES [facility] [address] [place] [address] from Last 3 Months or Most Recently Relevant to Health Maintenance Care Teams Production Line Welder Relationship Specialty Start Date End Date Wilfredo Morgan DO [address] [place] [address] PCP - General Family Medicine - Primary Care 11/05/22
--- OUTSIDE RECORDS SUMMARY | 2023-12-29 09:29 | XMS_ITS | Continuity of Care Document ---
Author Organization [place] - [facility] [employer] [facility], [facility] Address [address] [place] [address] Care Team Providers Care Strap Sewer Name Role Phone FELICIANO DAILEY Primary Care Provider [phone] Assessment No assessment recorded. Plan of Treatment Reminders Order Date Submit Date Provider Last Modified By Organization Details Last Modified Time Details Appointments Follow Up 30 2024 10:40A M Not available Not available Not available Lab None recorded. Referral None recorded. Procedures None recorded. Surgeries None recorded. Imaging None recorded. Medication Orders clotrimaz ole 1 % topical cream 2023 024 [facility], [address], [place], [address], 12/09/2023 11:19:34 Patient TargetsNo targets recorded. Patient Instructions Encounter Date Encounter Id Patient Instructions Last Modified By Organization Details Last Modified Time 12/09/2023 [id number] 1. I have sent prescription for clotrimazole [...] the legs I think that using an [id number] daily nondrowsy antihistamine such as Zyrtec also [...] develop other concerning symptoms please seek reevaluation. [email or web address] Not available 12/09/2023 11:20:33 Reason for Referral Ip Paralegal Referral for Bila teral plantar fasciitis Chronic bilateral pain to the bottom of her feet. Evidence of plantar fasciitis. Based on chronicity of symptoms, podiatry evaluation for further treatment if indicated. Referring Physician: Feliciano Dailey [facility], Encounter Date: 06/08/2023 Senior Cost Estimator Referral for Ananya dupree history of malignant neoplasm of uterus Referring Physician: Feliciano Dailey [facility], Encounter Date: 09/13/2023 General Surgeon Referral for Gastroesophageal reflux disease without esophagitis Persistent acid reflux despite high-dose PPI and H2 marcelino, and abortive Carafate therapy. Referral to gastroenterology for further evaluation. Referring Physician: Feliciano Dailey [facility], Encounter Date: 09/25/2023 Blueprint Reproducer Referral for Gastroesophageal reflux disease without esophagitis Persistent acid reflux despite high-dose PPI and H2 marcelino, and abortive Carafate therapy. Referral to gastroenterology for further evaluation. Referring Physician: Feliciano Dailey [facility], Encounter Date: 10/06/2023 Problems Name Status Onset Date Resolution Date Notes Provider Name and Address Organization Details Recorded Time Diarrhea Completed 202106/09/[address], [place], [address], [facility] 11:53:26 Cellulitis Completed 202106/09/[address], [place], [address] , [facility] 4 11:53:14 Gastroesophag eal reflux disease without esophagitis Active [address], [place], [address] , [facility] 4 11:53:30 Mixed anxiety and depressive disorder Active [address], [place], [address], [facility] 4 11:53:30 Posttraumatic stress disorder Active [address], [place], [address], [facility] 4 11:53:30 Chronic pain Active [address], [place], [address], [facility] 4 11:53:17 Migraine Active [address], [place], [address], [facility] 4 11:53:30 Obstructive sleep apnea syndrome Active [address], [place], [address], [facility] 4 11:53:30 Sleep pattern disturbance Active [address], [place], [address], [facility] 4 11:53:30 Bilateral plantar fasciitis Active [address], [place], [address], [facility] 4 11:53:14 Family history of malignant neoplasm of uterus Active 2023 Mother at age 54 from uterine cancer. [address], [place], [address], [facility] 4 11:56:53 Anxiety Active [address], [place], [address], [facility]. 4 14:59:50 Abnormal urine Completed 202312/18/[address], [place], [address], [facility] 4 14:59:52 Thyroid nodule Active [address], [place], [address], [facility] 4 15:54:12 Contact dermatitis caused by plants Active [address], [place], [address], [facility] 4 14:59:46 Tinea cruris Active [address], [place], [address], [facility] 4 15:00:01 Pruritic rash Active [address], [place], [address], [facility]. 4 14:59:55 Chronic constipation Active [address], [place], [address], [facility] 4 14:59:48 Seasonal allergy Active [address], [place], [address], [facility] 4 14:59:57 Tubular adenoma of colon Active 202305-20-22 [place] [facility] (+) cologuard with f/u colonoscopy. Per GI note, terminal ileum with erythema; sigmoid colon showed 2 polyps; (+) diverticulosis in the sigmoid colon; pathology showed active ileitis with ulceration; polyps showed tubular adenomas. FELICIANO DAILEY, IRINA [address], [place], [address] [place] [address] 4 15:00:26 Problem Notes None recorded. Medical Equipment None Reported. Allergies Allergen ID Allergen Name Allergen Category Reaction Reaction Severity Criticality Documentation Date Start Date Code Code System Note Provider Name and Address Organization Details Recorded Time 84951 betametha sone medicatio n confusion Not available low 07/12/2023 1514 RxNorm Heart palpi tatio ns Vicki Perry MA [facility] 4 15:37:34 60752 wasp venoms environme nt chest pain Not available high 07/12/2023 22217 RxNorm Vicki Perry MA [facility], [facility] 4 15:38:05 95240 prednison e medicatio n confusion moderate Not available 08/10/2023 8640 RxNorm Farheen Huffman MA [facility], [facility] 4 14:46:21 43881 iron medicatio n Not available Not available Not available 08/10/2023 27088 RxNorm OFRTINO Ramirez, [facility] 4 14:46:49 Medications Name Sig Start Date Stop [...] Not Available Vitals Date Recorded Body height Oxygen saturation Oxygen saturation in Arterial blood by Pulse oximetry Heart rate Respiratory rate Body temperature Systolic blood pressure Diastolic blood pressure Provider Name and Address Organization Details Last Updated DateTime 4 160.02 cm 98 % 98 % 80 /min 18 /min 97.6 [degF] 134 mm[Hg] 87 mm[Hg] Amanad Blacketer [facility] 10:56:53 Social History Question Answer Notes LastModified by Organizat ion Details LastModified Time Tobacco Smoking Status Former Smoker Farheen Huffman MA [facility], [facility] 06/08/2023 14:15:20 When Did You Quit Smoking? 6-10yearssi [email or web address] rette Information not available 12/09/2023 Would You Say That, In General, Your Health Is Fair [email or web address] Information not available 09/13/2023 Women Aged 18-50 - Would You Like To Become In The Next Year? (Female Patients Only) No [email or web address] Information not available 09/13/2023 How Often Does Anyone, Including Family, Physically Hurt You? Never [email or web address] Information not available 09/13/2023 How Often Does Anyone, Including Family, Insult Or Talk Down To You? Never [email or web address] Information no t available 09/13/2023 How Often Does Anyone, Including Family, Threaten You With Harm? Never [email or web address] Information not available 09/13/2023 How Often Does Anyone, Including Family, Scream Or Curse At You? Never [email or web address] Information not available 09/13/2023 Within The Past 12 Months, You Worried That Your Food Would Run Out Before You Got Money To Buy More. Never True Information n ot available 09/13/2023 Within The Past 12 Months, The Food You Bought Just Didn't Last And You Didn't Have Money To Get More. Never True [email or web address] Information not available 09/13/2023 How Hard Is It For You To Pay For The Very Basics Like Food, Housing, Medical Care, And Heating? Would You Say It Is: Not Hard At All [email or web address] Information not available 09/13/2023 In The Past 12 Months, Has Lack Of Reliable Transportation Kept You From Medical Appointments, Meetings, Work Or From Getting Things Needed For Daily Living? No [email or web address] Information not available 09/13/2023 What Is Your Housing Situation Today? I Have Housing. Information not available 09/13/2023 How Often In The Past Year Have You Used Marijuana (including Smoking, Vaping, Dabbing, Or Edibles)? Never [email or web address] Information not available 09/13/2023 How Often In The Past Year Have You Used Prescription Medications That Were Not Prescribed To You? Never [email or web address] Information not available 09/13/2023 How Often In The Past Year Have You Taken Your Own Prescription Medication More Than The Way It Was Prescribed Or For Different Reasons Than Its Intended Purpose? Never [email or web address] Information not available 09/13/2023 How Often In The Past Year Have You Used Other Drugs (for Example, Heroin, Cocaine, Meth, Salvia, Inhalants)? Never Information not available 09/13/2023 Have You Ever Used IV Drugs? No [email or web address] Information not available 09/13/2023 Date Of Most Recent SBINS 09/13/2023 [email or web address] Information not available 09/13/2023 What Was The Date Of Your Most Recent Tobacco Screening? 07/12/2023 [email or web address] Information n ot available 07/12/2023 What Is Your Current Pack Years? 20-29packye ars [email or web address] Information not available 06/08/2023 At What Age Did You Start Smoking Tobacco? 14 [email or web address] Information not available 06/08/2023 How Much Tobacco Do You Smoke? 1 PPD [email or web address] Information not available 06/08/2023 Has Tobacco Cessation Counseling Been Provided? No Information not available 12/09/2023 On What Date Was Tobacco Cessation Counseling Provided? 12/09/2023 Information not available 12/09/2023 How Many Years Have You Smoked Tobacco? 25 [email or web address] Information not available 06/08/2023 Do You Or [...] Recorded Time Tdap 01/25/2022 completed Not Available [facility] 06:12:04 Td(adult) unspecified formulation 01/28/2012 completed Not Available [facility] 03/17/2023 06:12:04 influenza, unspecified formulation 01/05/2015 completed Not Available [facility] 03/17/2023 06:12:04 Past Encounters Encounter ID Performer Location Encounter Start Date Encounter Closed Date Diagnosis/Indication Diagnosis SNOMED-CT Code [id number] LUIS GORDON PA-C [address] [address] 12/09/2023 10:16:04 12/09/2023 11:21:45 Tinea cruris [id number] Pruritic rash [id number] Health Concerns Section Related Observation LastModified by Organization Detai ls LastModified Time None Recorded Concern Status LastModified by Organization Details LastModified Time None Recorded Payers Encounter Date Sequence Insurance Name Policy Number Policy Garcia Covered Member ID Garcia Member ID Guarantor Name 12/09/2023 1 [place] ([place] ONLY PPO) [id number] Barbara Braxton [id number] Barbara Braxton Notes Date Note Type Note Provider Name and Address Organization Details Recorded Time 12/09/2023 text/html HPI Notes: Barbara is a [...] prior. LUIS GORDON PA-C [address], [place], [address], [facility]. 12/09/2023 12:33:02 OBGyn Episode No OBEpisode recorded.
--- OUTSIDE RECORDS SUMMARY | 2023-12-29 09:29 | XMS_ITS | Encounter Summary ---
Author Organization [facility] Address [address] [place] [address] Care Team Providers Care Wire Setter Name Role Phone Wilfredo Morgan Kristan SCHNEIDER Primary Care Provider [phone] Encounter Details Date Type Department Care Team (Late st Contact Info) Description 10/03/2023 Lab Requisition [facility] Pathology & Laboratory Medicine - [facility] [address], [place] [id number] Outr Resulting Lab, Provider Social History Tobacco [...] Procedure Name Priority Date/Time Associated Diagnosis Comments H. PYLORI ANTIGEN Routine 10/02/2023 12: 00 EDT documented in this encounter Results * H. PYLORI ANTIGEN (10/02/2023 12:00 EDT) H. Pylori Negative Negative 10/06/2023 14:53 EDT [facility] Comment:Indicates the absenc e of H. pylori stool antigen, (or the level of antigen is below that which can be detected by the assay) Feces SPECIMEN FROM RECTUM / Unknown 10/02/2023 12:00 EDT 10/03/2023 17:19 EDT Narrative [facility] - 10/06/2023 14:53 EDT New Liaison XL testing method used as of 02/27/2023 Provider Outr Resulting Lab MICROBIOLOGY - GENERAL ORDERABLES [facility] [address] [place] [address] documented in this encounter Visit Diagnoses Not on filedocumented in this encounter Care Teams Wire Setter Relationship Specialty Start Date End Date Wilfredo Morgan DO [address] [place] [address] PCP - General Family Medicine - Primary Care 11/05/22 documented as of this encounter
--- OUTSIDE RECORDS SUMMARY | 2023-12-29 09:29 | XMS_ITS | Encounter Summary ---
Author Organization [facility] Address [address] [place] [address] Care Team Providers Care Talent Acquisition Project Manager Name Role Phone Unknown, Provider Primary Care Provider [phone] Wilfredo Morgan DO Primary Care Provider [phone] Encounter Details Date Type Department Care Team (Late st Contact Info) Description 08/18/2020 Lab Requisition [facility] Pathology & Laboratory Medicine - [facility] [address] [place] [address] Outr Resulting Lab, Provider Social History Tobacco [...] Procedure Name Priority Date/Time Associated Diagnosis Comments HEPATITIS C AB W REFLEX TO HCV RNA BY PCR Routine 08/18/2020 7:50 EDT documented in this encounter Results * HEPATITIS C AB W REFLEX TO HCV RNA BY PCR (08/18/2020 7:50 EDT) Hep C Antibody Negative Negative 08/19/2020 10:18 EDT [facility] Blood VENOUS BLOOD / Unknown 08/18/2020 7:50 EDT 08/18/2020 15:54 EDT Provider Outr Resulting Lab CHEMISTRY & BLOOD GAS ORDERABLES [facility] [address] [place] [address] documented in this encounter Visit Diagnoses Not on filedocumented in this encounter Care Teams Talent Acquisition Project Manager Relationship Specialty Start Date End Date Unknown, Provider, PCP - General 03/17/15 11/04/22 Wilfredo Morgan DO [address] [place] [address] PCP - General Family Medicine - Primary Care 11/05/22 documented as of this encounter
--- OUTSIDE RECORDS SUMMARY | 2023-12-29 09:29 | XMS_ITS | Encounter Summary ---
Author Organization [facility] Address [address] [place] [address] Care Team Providers Care Outpatient Psychiatrist Name Role Phone Unknown, Provider Primary Care Provider Wilfredo Morgan DO Primary Care Provider [phone] Encounter Details Date Type Department Care Team (Late st Contact Info) Description 08/18/2020 Lab Requisition [facility] Pathology & Laboratory Medicine - [facility] [address] [place] [address] Outr Resulting Lab, Provider Social History Tobacco [...] Procedure Name Priority Date/Time Associated Diagnosis Comments HIV 1/2 ANTIGEN AND ANTIBODY, 4TH GENERATION Routine 08/18/2020 7:50 EDT documented in this encounter Results * HIV 1/2 ANTIGEN AND ANTIBODY, 4TH GENERATION (08/18/2020 7:50 EDT) HIV 1 and 2 Antibody/p24 Antigen, 4th Generation Negative Negative 08/19/2020 10:06 EDT [facility] Comment: If acute HIV-1 infection is suspected in a high risk ??patient, submit plasma specimen for HIV-1 RNA quantitation test. Fourth Generation assay performed on the Siemens Centaur. Blood VENOUS BLOOD / Unknown 08/18/2020 7:50 EDT 08/18/2020 15:54 EDT Provider Outr Resulting Lab IMMUNOLOGY A ND SEROLOGY ORDERABLES [facility] [address] [place] [address] documented in this encounter Visit Diagnoses Not on filedocumented in this encounter Care Teams Outpatient Psychiatrist Relationship Specialty Start Date End Date Unknown, Provider, PCP - General 03/17/15 11/04/22 Wilfredo Morgan DO [address] [place] [address] PCP - General Family Medicine - Primary Care 11/05/22 documented as of this encounter
--- OUTSIDE RECORDS SUMMARY | 2023-12-29 09:29 | XMS_ITS | Encounter Summary ---
Author Organization [facility] Address [address] [place] [address] Care Team Providers Care Supervisor Tumblers Name Role Phone Unknown, Provider Primary Care Provider [phone] Reason for Visit * Reason Comments Follow-up Encounter Details Date Type Department Care Team (Late st Contact Info) Description 06/03/2020 9:45 EST Telemedicine [facility] Ophthalmology - Main [address] [id number] Hemant Cantor MD [address] [facility] [place] [address] Holly's syndrome (Primary Dx); Anisocoria; Headache behind the eyes Social History Tobacco Use Types Packs/Day Years [...] on file documented as of this encounter Progress Notes * Hemant Cantor MD - 06/03/2020 0945 EST DIVISION OF OPHTHALMOLOGY [facility] NEURO-OPHTHALMOLOGY FOLLOW-UP 06/03/2020 Due to the priorities of social distancing and minimization of infectious exposure during the COVID-19 pandemic, this encounter was completed via telehealth video visit, with on-site follow up at a later date, as deemed necessary. The clinical encounter was conducted virtually using HIPAA-compliant videoconferencing technology, Snoobe. At the time of the encounter, the patient was located at their [place] residence of record, please refer to the EMR for address details. Hemant Cantor MD, the provider, was located at home [facility] . Verbal informed consent for telemedicine services was obtained by the clinicstaff at the time of scheduling. In the event of a transmission failure, the provider or office staff will initiate a phone call to contact the patient to advise on next steps to connect or reschedule. The following technical issues were present: None This encounter note has been dictated. I spent 30 minutes in conversation and discussion via the video link, with more than 50% of that time used for counseling and coordination of care. Ms. Braxton is seen via telemedicine link to review her MRI. To recall this, 50-year-old woman who was initially evaluated by me on April 21, 2020 because ofa history of anisocoria and ptosis. Apraclonidine testing at that time was equivocal as such I recommended Holly's protocol MRI which was obtained at [facility] in the interval with no abnormalities account for the Holly's. The patient also experiences chronic headaches and I recommended a combination of magnesium riboflavin and co-Q10. The patient has been doing this for the past three weeks is noticed improvement although has also seen her chiropractor and has had chiropractic manipulation which have been beneficialfor her headaches in the past. The patient continues to report that her vision is blurry particularly when trying to work at the computer. She has correction for presbyopia but has not found this to be beneficial. At the time of her evaluation in mid April no abnormality was noted to account for the patient'sabnormal best corrected vision, and history suggests more refractive error focusing issue. All of the patient's questions were answered satisfactorily because of the questions or concerns asthey relate to the clarity of the patient's vision I have recommended that we have a scheduled follow-up in six months time to reevaluate things. If things were to worsen acutely in the interval she just needs to be seen sooner. In the meantime I have recommended that she consider a trial of dedicated computer glasses for homework; this seems to be the circumstances under which her vision bothersthe most. Please do not hesitate to contact me with any further questions or concerns. Sincerely, Hemant Cantor MD Diplomate, the [employer] onboarding specialist Department of Ophthalmology documented in this encounter Plan of Treatment Not on file documented as of this encounter Visit Diagnoses Diagnosis Holly's syndrome- Primary Unspecified disorder of autonomic nervous system Anisocoria Headache behind the eyes Headache documented in this encounter Care Teams Supervisor Tumblers Relationship Specialty Start Date End Date Unknown, Provider, PCP - General 03/17/15 11/04/22 documented as of this encounter
--- OUTSIDE RECORDS SUMMARY | 2023-12-29 09:29 | XMS_ITS | Encounter Summary ---
Author Organization [facility] Address [address] [place] [address] Care Team Providers Care Recording Studio Setup Worker Name Role Phone Unknown, Provider Primary Care Provider [phone] Wilfredo Morgan DO Primary Care Provider [phone] Encounter Details Date Type Department Care Team (Late st Contact Info) Description 12/16/2021 Lab Requisition [facility] Pathology & Laboratory Medicine - [facility] [address] [place] [address] Outr Resulting Lab, Provider Social History Tobacco [...] Procedure Name Priority Date/Time Associated Diagnosis Comments PTH INTACT Routine 12/15/2021 16:45 EDT documented in this encounter Results * PTH INTACT (12/15/2021 16:45 EDT) Intact PTH 51 19 - 88 pg/mL 12/16/2021 23:19 EDT [facility] Blood VENOUS BLOOD / Unknown 12/15/2021 16:45 EDT 12/16/2021 17:57 EDT Provider Outr Resulting Lab CHEMISTRY & BLOOD GAS ORDERABLES [facility] [address] [place] [address] documented in this encounter Visit Diagnoses Not on filedocumented in this encounter Care Teams Recording Studio Setup Worker Relationship Specialty Start Date End Date Unknown, Provider, PCP - General 03/17/15 11/04/22 Wilfredo Morgan DO [address] [place] [address] PCP - General Family Medicine - Primary Care 11/05/22 documented as of this encounter
--- OUTSIDE RECORDS SUMMARY | 2023-12-29 09:29 | XMS_ITS | Encounter Summary ---
Author Organization [facility] Address [address] [place] [address] Care Team Providers Care Arcgis Developer Name Role Phone Wilfredo Morgan Kristan SCHNEIDER Primary Care Provider [phone] Encounter Details Date Type Department Care Team (Late st Contact Info) Description 12/01/2023 Lab Requisition [facility] Pathology & Laboratory Medicine - [facility] [address] [place] [address] Jorge Sanches MD [address] [place] [address] Dysphagia, unspecified; Heartburn; Epigastric pain Social History Tobacco Use Types Packs/Day Years [...] 9:00 EDT Dysphagia, unspecified Heartburn Epigastric pain documented in this encounter Results * SURGICAL PATHOLOGY (11/30/2023 9:00 EDT) Note to Patient The following pathology results have been interpreted by your pathologist and may be available to you before your health provider has had the opportunity to review them. Please allow time for your provider to receive these results and explore management options, if applicable. 12/06/2023 16:21 [facility] Final Diagnosis A. DUODENUM, BIOPSY: [...] No increase in intraepithelial eosinophils. 12/06/2023 16:21 [facility] Diagnosis Comment The technical component of the specimen processing was performed at the [facility] Pathology Department, [address] [place] [address] (CLIA [id number]). The professional component of the specimen evaluation (slide review and issuing of the final diagnosis) was performed at [facility], [address] [place] [address] (CLIA License Number [id number]). 12/06/2023 16:21 [facility] Attestation By the signature below, the attending physician certifies that they have 1) personally conducted a gross and/or microscopic examination of the described specimen(s), and/or personally interpreted the results of laboratory testing of the described specimen(s), and 2) personally rendered or confirmed the above diagnosis. 12/06/2023 16:21 [facility] at 1621 Ancillary Studies Immunoperoxidase stains were performed on this case to further evaluate for Helicobacter pylori. ANTIBODY(CLONE)(BLOCK ): RESULT H pylori (Rabbit Monoclonal (SP48), [place])(C1): Negative for definitive organisms within the tissue fragments The technical component of the above immunohistochemical stain(s) was performed at the [facility] Pathology Department, [address] [place] [address] (CLIA [id number]), and the professional interpretation component was performed at the [facility] Pathology Department, [address] [address] (CLIA [id number]). NOTE: One or more of the reagents [...] high complexity clinical laboratory testing. 12/06/2023 16:21 [facility] Clinical History GERD, pyrosis, generalized abdominal pain, vomiting, bloating, diarrhea; clinical diagnosis code: R10.13, R12, R13.10 12/06/2023 16:21 [facility] Gross Description A. Received in [...] Johanne Grigsby 12/01/2023 10:07 12/06/2023 16:21 EDT [facility] Performing Lab [facility] 12/06/2023 16:21 EDT [facility] Scanned Images 12/06/2023 16:21 EDT [facility] Tissue ESOPHAGEAL STRUCTURE / Unknown [...] EDT Jorge Sanches MD PATHOLOGY ORD ERABLES [facility] [address] [place] [address] documented in this encounter Visit Diagnoses Diagnosis Dysphagia, unspecified Heartburn Epigastric pain Abdominal pain, epigastric documented in this encounter Care Teams Arcgis Developer Relationship Specialty Start Date End Date Wilfredo Morgan DO [address] [place] [id number] PCP - General Family Medicine - Primary Care 11/05/22 documented as of this encounter
--- OUTSIDE RECORDS SUMMARY | 2023-12-29 09:29 | XMS_ITS | Encounter Summary ---
Author Organization [facility] Address [address] [place] [address] Care Team Providers Care Dental Laboratory Manager Name Role Phone Wilfredo Morgan Kristan SCHNEIDER Primary Care Provider [phone] Encounter Details Date Type Department Care Team (Late st Contact Info) Description 11/23/2022 Lab Requisition [facility] Pathology & Laboratory Medicine - [facility] [address] [place] [address] Steve Sheffield MD [address] [place] [address] Nontoxic multinodular goiter Social History Tobacco [...] Name Priority Date/Time Associated Diagnosis Comments NON BAND MAKER/FNA CYTOLOGY Today 11/22/2022 12:40 EDT Nontoxic multinodular goiter documented in this encounter Results * NON BAND MAKER/FNA CYTOLOGY (11/22/2022 12:40 EDT) Note to Patient The following pathology results have been interpreted by your pathologist and may be available to you before your health provider has had the opportunity to review them. Please allow time for your provider to receive these results and explore management options, if applicable. 11/25/2022 11:04 [facility] Final Diagnosis A. THYROID NODULE (1.5 CM), LEFT, ULTRASOUND-GUIDE D FINE NEEDLE ASPIRATION: - Features of benign follicular nodule. See comment. 11/25/2022 11:04 [facility] Diagnosis Comment The aspirate is adequate and consists of follicular cells, many with Hurthle cell change, arranged in equal opportunity representative appearing follicles of variable size. The follicular cells exhibit mostly round nuclei with smooth nuclear membranes and bland chromatin pattern. No significant nuclear atypia appreciated (e.g., nuclear grooves or intranuclear inclusions). Scattered hemosiderin laden macrophages and a bit of dense colloid noted in the background. Overall features are consistent with a benign follicular nodule. Recommend correlation with clinical and radiologic impressions. . The technical component of the specimen processing was performed at the [facility] Pathology Department, [address] [place] [address] (CLIA [id number]). The professional component of the specimen evaluation (slide review and issuing of the final diagnosis) was performed at [facility], [address] [place] [address] (CLIA License Number [id number]). 11/25/2022 11:04 [facility] Attestation By the signature below, the attending physician certifies that they have personally conducted a gross and/or microscopic examination of the described specimens and rendered or confirmed the above diagnosis. 11/25/2022 11:04 [facility] at 1104 Rapid Diagnosis A. LEFT THYROID NODULE 1.5 CM, ULTRASOUND GUIDED FINE NEEDLE ASPIRATION: Evaluation Episode 1: Pass 1: Predominantly blood rare follicular groups Pass 2: Numerous follicular epithelial cells present, colloid present Pass 3 +4: To Afirma The above rapid on site evaluation was performed by pathologist Dr. Silvano Aquino assisting Dr. Anitra Sheffield at [facility], [address] [facility], [place] [address]. 11/22/2022; 1250 11/25/2022 11:04 EDT [facility] Clinical History 1.5cm left thyroid nodule. E04.2 11/25/2022 11:04 EDT [facility] Gross Description A. 4 fixed prepared slides, 2 air dried prepared slides, and 1 tube of Cytolyt processed by selective cellular enhancement were received. 1 FNAprotect tube for possible Afirma testing was also received and will be held for 60 days from date of collection. 11/25/2022 11:04 EDT [facility] Performing Lab [facility] 11/25/2022 11:04 EDT [facility] Scanned Images 11/25/2022 11:04 EDT [facility] Fine Needle Aspirate ENTIRE LEFT LOBE OF THYROID GLAND / Unknown 11/22/2022 12:40 EDT 11/23/2022 6:45 EDT Steve Sheffield MD PATHOLOGY ORDERABLES [facility] [address] [place] [address] documented in this encounter Visit Diagnoses Diagnosis Nontoxic multinodular goiter documented in this encounter Care Teams Dental Laboratory Manager Relationship Specialty Start Date End Date Wilfredo Morgan DO [address] [place] [address] PCP - General Family Medicine - Primary Care 11/05/22 documented as of this encounter
--- OUTSIDE RECORDS SUMMARY | 2023-12-29 09:30 | XMS_ITS | Encounter Summary ---
Author Organization [facility] [place] [address] Care Team Providers Care Cleat Thrower Name Role Phone Wiflredo Morgan DO Primary Care Provider [phone] Encounter Details Date Type Department Care Team (Late st Contact Info) Description 05/31/2005 [place] [phone] Louise Renae MD [address] [place] [address] Social History Tobacco Use Types Packs/Day Years Used Date Smoking Tobacco: Never Assessed Sex and Gender Information Value Date Recorded Sex Assigned at Not on file Gender Identity Not on file Sexual Orientation Not on file documented as of this encounter Plan of Treatment Not on file documented as of this encounter Procedures Procedure Name Priority Date/Time Associated Diagnosis Comments SURGICAL PATHOLOGY REPORT Routine 05/31/2005 8:42 PM EST documented in this encounter Results * Surgical Pathology Report (05/31/2005 8:42 PM EST) Surgical Pathology Report [id number] ? Location: The signing pathologist has (i) examined the relevant preparation(s) for the specimen(s) and (ii) rendered or confirmed the diagnosis(es). . ?Pathology Surgical Pathology Final Report Clinical Information Specimen Submitted: A - R thigh, shave. B - L thigh, shave. Clinical History: A - 5 mm speckled nevus macule; atypical nevi. B - 7 mm irregularly pigmented macule; atypical nevi. Louise Renae MD Dermatology [address] [place] [address] , [address] [place], [place] ??[address] Phone - FAX - Gross Description A - Labeled/Fixativ e: Right thigh, formalin. Qty/Size/Weight : ?Single shave, 0.7 cm, of ramirez skin with a ?0.6 x 0.3 x 0.1-cm, irregular, brown-pigmented ?macule. Sections/Proces sing: ??Inked. ??Trisected. ??(T1) B - Labeled/Fixativ e: Left thigh, formalin. Qty/Size/Weight : ?Single shave, 0.7 cm, ramirez skin with an eccentric, ?irregular, 0.5 x 0.4-cm, brown-pigmented macule. Sections/Proces sing: ??Inked. ??Trisected. ??(T1) ??aje/EM Microscopic Description Slides reviewed, microscopic description not recorded. 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 06/06/05 PAS 06/06/05 Verified by: ? [place] Sheth ?Dermatopathol ogist ?(Electronic Signature) The attending pathologist whose signature appears on this report has reviewed all diagnostic slides and has edited the gross and/or microscopic portion of the report in rendering the final pathologic diagnosis. LUDWIG MARR 05/31/2005 8:42 PM EST Louise Renae MD PATHOLOGY/CYTOLOGY O RDERABABAR Performing Organization Address City/State/[facility] Co de Phone Number [facility] documented in this encounter Visit Diagnoses Not on filedocumented in this encounter Care Teams Cleat Thrower Relationship Specialty Start Date End Date Wilfredo Morgan DO [address] [place] [address] PCP - General Family Medicine 04/18/22 documented as of this encounter
--- OUTSIDE RECORDS SUMMARY | 2023-12-29 09:30 | XMS_ITS | Encounter Summary ---
Author Organization [facility] Address [address] [place] [address] Care Team Providers Care Exhibits Coordinator Name Role Phone Unavailable Primary Care Provider Unavailabl e Encounter Details Date Type Department Care Team (Late st Contact Info) Description 10/17/2007 Results Only [facility] - [facility] [address] [place] [address] Casey Jon NP [address] [place], [place] [address] Social History Tobacco Use Types Packs/Day Years Used Date Smoking Tobacco: Never Assessed Sex and Gender Information Value Date Recorded Sex Assigned at Not on file Gender Identity Not on file Sexual Orientation Not on file documented as of this encounter Plan of Treatment Not on file documented as of this encounter Procedures Procedure Name Priority Date/Time Associated Diagnosis Comments CYTOPATHOLOGY Routine 10/17/2007 0:00 EDT documented in this encounter Results * CYTOPATHOLOGY (10/17/2007 0:00 EDT) Pathology Report: CYTOPATHOLOGY REPORT Reports generated via electronic interface contain original data; however they are lacking the format of the original report. Caution should be taken when reading/interpreti ng unformatted reports. Name: ? BARBARA BRAXTON ? Accession #: ? [id number] : ? 1970 (Age: 37) ??F ?Collect Date: ? 10/17/2007 Location: ? [facility] ? Receive Date: ? 10/18/2007 Provider: ?CASEY JON NP Copy to: ? Specimen/Source: ?ThinPrep Pap Test, Cervix/Endocervix, processed on [employer] ThinPrep Imaging System, with manual evaluation Last Menstrual Period: ? 09/30/07 Other: ? HPVA - HPV testing requested if ASC-US on the current ThinPrep Pap test. ? SPECIMEN ADEQUACY ? Satisfactory for Evaluation - transformation zone component present GENERAL CATEGORIZATION ? Negative for Intraepithelial Lesion or Malignancy ? Document reviewed and electronically signed by: ? Lydia Jovel, SCT(ASCP) ? Report Date: ??10/22/2007 11:42 End of Report DESTINEY WERNER 10/17/2007 10/18/2007 Casey Jon NP PATHOLOGY ORDERA BABAR DESTINEY WERNER [address] [place] [address] documented in this encounter Visit Diagnoses Not on filedocumented in this encounter
--- OUTSIDE RECORDS SUMMARY | 2023-12-29 09:30 | XMS_ITS | Encounter Summary ---
[place] [address] Care Team Providers Care Chick Sexer Name Role Phone Wilfredo Morgan DO Primary Care Provider [phone] Reason for Referral * Surgical (Routine) - Closed Specialty Diagnoses / Procedures Referred By Harlan marc Referred To Contact Gastroenterology Diagnoses Positive colorectal cancer screening using DNA-based stool test Wilfredo Morgan DO [address] [place] [address] [facility] [address] [place] [address] Referral ID Status Reason Start Date Expiration Date V isits Requested Visits Authorized [id number] Closed Surgical PCP Updated and/or Approved 04/18/2022 04/18/2023 1 1 Encounter Details Date Type Department Care Team (Latest Contact Info) Description 04/18/2022 Transcribe Orders eD Incoming Referrals [phone] Wilfredo Morgan DO [address] [place], [place] [id number] Positive colorectal cancer screening using DNA-based stool test Social History Tobacco Use Types Packs/Day Years Used Date Smoking Tobacco: Never Assessed Sex and Gender Information Value Date Recorded Sex Assigned at Not on file Gender Identity Not on file Sexual Orientation Not on file documented as of this encounter Plan of Treatment Scheduled Referrals Name Type Priority Associated Diagnoses Order Schedule REFERRAL TO COLONOSCOPY PROCEDURE Outpatient Referral Routine Positive Colorectal Cancer Screening Using Dna-Based Stool Test Ordered: 04/18/2022 documented as of this encounter Visit Diagnoses Diagnosis Positive colorectal cancer screening using DNA-based stool test documented in this encounter Care Teams Chick Sexer Relationship Specialty Start Date End Date Wilfredo Morgan DO [address] [place] [address] PCP - General Family Medicine 04/18/22 documented as of this encounter
--- OUTSIDE RECORDS SUMMARY | 2023-12-29 09:30 | XMS_ITS | Encounter Summary ---
Author Organization [facility] Address [address] [place] [address] Care Team Providers Care Manager Client Service Name Role Phone Unknown, Provider Primary Care Provider [phone] Reason for Visit * Reason Onset Date Comments Other 04/27/2020 Encounter Details Date Type Department Care Team (Late st Contact Info) Description 04/27/2020 Telephone [facility] Ophthalmology - [address] [id number] Hemant Cantor MD [address] [facility], [address] [place] [address] Other Social History Tobacco Use Types Packs/Day Years [...] encounter Miscellaneous Notes * Telephone Encounter - Lauryn Brantleyley - 04/27/2020 0941 EST Patient would like MRI done at [facility] instead of [facility] documented in this encounter Plan of Treatment Not on file documented as of this encounter Visit Diagnoses Diagnosis Holly's syndrome- Primary Unspecified disorder of autonomic nervous system Headache behind the eyes Headache Ptosis of right eyelid Unspecified ptosis of eyelid Anisocoria documented in this encounter Care Teams Manager Client Service Relationship Specialty Start Date End Date Unknown, Provider, PCP - General 03/17/15 11/04/22 documented as of this encounter
--- OUTSIDE RECORDS SUMMARY | 2023-12-29 09:30 | XMS_ITS | Encounter Summary ---
Author Organization [facility] [place] [address] Care Team Providers Care Life Enrichment Director Name Role Phone Wilfredo Morgan DO Primary Care Provider [phone] Encounter Details Date Type Department Care Team (Late st Contact Info) Description 05/11/2022 Tele[place] [phone] Mayuri Muhammad Social History Tobacco Use Types Packs/Day Years Used Date Smoking Tobacco: Never Assessed Sex and Gender Information Value Date Recorded Sex Assigned at Not on file Gender Identity Not on file Sexual Orientation Not on file documented as of this encounter Miscellaneous Notes * Telephone Encounter - Mayuri Muhammad - 05/11/2022 3:45 PM EST Barbara Braxton [id number] Diagnosis/Indication: + cologuard Please review patient chart to confirm if previous Endoscopy procedure was performed within system. If yes, take note of Anesthesia type used. If previous procedure found, and with MAC/propofol Anesthesia support was used, schedule this procedure with Anesthesia and skip the Anesthesia portion of questions. If not performed within system, not performed at all, or performed with IVCS, ask Anesthesia questions. SCHEDULING QUESTIONS (ask all patient these questions) 1. Have you ever had a/an Colonoscopy before? No If yes, did you have any problems with the procedure (such as waking up during the procedure, pain or difficulties afterwards, etc.)? No What type of sedation was used: None 2. Do you take any blood thinners or have you been diagnosed with a bleeding disorder that increases your risk of bleeding with procedures? No 3. Do you have a Pacemaker or Defibrillator device? If yes, send pool message to Cardiology with patient information and date or procedure. No 4. Are you a diabetic? If yes, call PCP/managing provider to discuss use of prep and any questions or concerns related to. No 5. Do you take any iron supplements or vitamins that contain iron? Yes 6. Do you have a preference regarding the gender of your provider? No ANESTHESIA QUESTIONS (YES to any question, please book with Anesthesia support) 7. Have you ever been diagnosed with Pulmonary Hypertension and/or Congential Heart Disease? No 8. Have you been diagnosed with A-Fib (atrial fibrillation) that is NOT being well controled with medications? No 9. Have you ever had an allergic or adverse reaction to Fentanyl or Versed? No 10. Have you had a problem with sedation or anesthesia? (Waking up during procedure, extreme confusion after, etc.) No 11. Do you have a diagnosis of Obstructive Sleep Apnea that requires the use of a c-pap machine? No 12. Do you use an oxygen tank at home? No 13. Do you use a rescue inhaler more than twice per day? (COPD, severe asthma) No 14. Do you experience breathing problems when you lay flat for a period of time? No 15. Do you take prescription narcotic pain medications, including suboxone or methodone? No SCHEDULING CONFIRMATIONS: Please note any and all parts of your conversation with the patient here. 16. We offer all new patients an opportunity to have an appointment with one of our associate care providers to learn more about your upcoming procedure, ask questions and get answers. These appointments are offered via telehealth. Would you be interested in scheduling this appointment? (Only ask if NEW referral patient; skip this question if [facility] GI provider ordered the procedure.) No 17. Is there any other information or concerns you would like to us to share with your care team inrelation to your upcoming scheduled procedure? No 18. You must have a responsible constitution party who will drive you to your procedure, stay on campus for the entire duration of your procedure, and drive you home from your procedure. Who will likely be your trash collector truck driver for the procedure? *Please Verify the height and weight, and adjust if height and/or weight have changed* There is no height or weight on file to calculate BMI. *Delete if not needed* Height: 5'3.6'' Weight: 168 BMI: 29.2 Age:52 y.o. documented in this encounter Plan of Treatment Not on file documented as of this encounter Visit Diagnoses Not on filedocumented in this encounter Care Teams Life Enrichment Director Relationship Specialty Start Date End Date Wilfredo Morgan DO [address] [place] [address] PCP - General Family Medicine 04/18/22 documented as of this encounter
--- OUTSIDE RECORDS SUMMARY | 2023-12-29 09:30 | XMS_ITS | Encounter Summary ---
[place] [address] Care Team Providers Care Access Rn Name Role Phone Wilfredo Morgan DO Primary Care Provider [phone] Reason for Referral * Consultation (Routine) - Closed Specialty Diagnoses / Procedures Referred By Conttom t Referred To Contact Gastroenterology Diagnoses Abnormal colonoscopy Abnormal colonoscopy/ inflamtion seen on colonoscopy (Dr. Fuentes May 29) Leonie Roth APRN [address] [place] [address] [address] Referral ID Status Reason Start Date Expiration Date V isits Requested Visits Authorized [id number] Closed Consult, Test & Treat PCP Updated and/or Approved 06/10/2022 06/10/2023 6 6 Encounter Details Date Type Department Care Team (Latest Contact Info) Description 06/10/2022 Transcribe Orders eDH Incoming Referrals [phone] Leonie Roth APRN [address] [place] [address] Abnormal colonoscopy Social History Tobacco Use Types Packs/Day Years Used Date Smoking Tobacco: Former Cigarettes Smokeless Tobacco: Never Alcohol Use Standard Drinks/Week Comments Yes 3 (1 standard drink = 0.6 oz pur e alcohol) Sex and Gender Information Value Date Recorded Sex Assigned at Not on file Gender Identity Not on file Sexual Orientation Not on file documented as of this encounter Plan of Treatment Scheduled Referrals Name Type Priority Associated Diagnoses Order Schedule Referral to Gastroenterology Outpatient Referral Routine Abnormal colonoscopy Ordered: 06/10/2022 documented as of this encounter Visit Diagnoses Diagnosis Abnormal colonoscopy Nonspecific (abnormal) findings on radiological and other examination of gastrointestinal tract documented in this encounter Care Teams Access Rn Relationship Specialty Start Date End Date Wilfredo Morgan DO [address] [place] [address] PCP - General Family Medicine 04/18/22 documented as of this encounter
--- OUTSIDE RECORDS SUMMARY | 2023-12-29 09:30 | XMS_ITS | Encounter Summary ---
Author Organization [facility] Address [address] [place] [address] Care Team Providers Care Ship Rigger Apprentice Name Role Phone Unknown, Provider Primary Care Provider [phone] Encounter Details Date Type Department Care Team (Late st Contact Info) Description 03/30/2016 Results Only [facility] [phone] Pao Gurrola MD [address] [place] [address] Social History Tobacco Use Types Packs/Day Years Used Date Smoking Tobacco: Never Assessed Sex and Gender Information Value Date Recorded Sex Assigned at Not on file Gender Identity Not on file Sexual Orientation Not on file documented as of this encounter Plan of Treatment Not on file documented as of this encounter Procedures Procedure Name Priority Date/Time Associated Diagnosis Comments PAP TEST- RESULT ONLY Routine 03/30/2016 0:00 EST documented in this encounter Results * PAP TEST- RESULT ONLY (03/30/2016 0:00 EST) Pathology Report: CYTOPATHOLOGY REPORT Reports generated via electronic interface contain original data; however they are lacking the format of the original report. Caution should be taken when reading/interpreti ng unformatted reports. Name: ? BARBARA BRAXTON ? Accession #: ? [id number] ? : ? 1970 (Age: 46) ??F ?Collect Date: ? 03/30/2016 ? Location: ? [facility] ? Receive Date: ? 04/01/2016 ? Provider: PAO GURROLA MD Copy to: ? Final Report SPECIMEN ADEQUACY ? Satisfactory for Evaluation - assessment of transformation zone component not applicable ( e.g. atrophy, vaginal sample, hysterectomy) GENERAL CATEGORIZATION ? Negative for Intraepithelial Lesion or Malignancy ?? Last Menstrual Period: >10yrs Specimen/Source: ??Pap Test, Cervix, ThinPrep Imaging System with manual evaluation Document reviewed and electronically signed by: ? CATHY Mares(ASCP) ? Report ??Date: 04/05/2016 14:12 HPV with Pap Test ? Date Ordered: ? 04/05/2016 ? Status: ?? Signed Out ?Date Complete: ? 04/07/2016 ? By: ??System Interface ? Date Reported: ? 04/07/2016 ? Interpretation RESULT: Negative for HPV. No E6 or E7 mRNA is detected from HPV types 16,18,31,33,35, 39,45,51,52,56,58, 59,66, and 68 by clerk specialist mediated amplification. Comments Document reviewed and electronically signed by: ? System Interface ? Report date: 04/07/2016 By the signature above, the attending physician certifies that he/she has personally conducted a gross and/or microscopic examination of the described specimens and rendered or confirmed the above diagnosis. End of Report [facility] 03/30/2016 04/01/2016 Pao Gurorla MD PATHOLOGY ORDERABLES [facility] [address] [place] [address] documented in this encounter Visit Diagnoses Not on filedocumented in this encounter Care Teams Ship Rigger Apprentice Relationship Specialty Start Date End Date Unknown, Provider, PCP - General 03/17/15 11/04/22 documented as of this encounter
--- OUTSIDE RECORDS SUMMARY | 2023-12-29 09:30 | XMS_ITS | Encounter Summary ---
Author Organization [facility] Address [address] [place] [address] Care Team Providers Care Audio Recording Engineer Name Role Phone Unavailable Primary Care Provider Unavailabl e Encounter Details Date Type Department Care Team (Late st Contact Info) Description 12/02/2003 Results Only [facility] [address] [place] [address] Iveth Trujillo MD [address] [place] [address] Social History Tobacco Use Types Packs/Day Years Used Date Smoking Tobacco: Never Assessed Sex and Gender Information Value Date Recorded Sex Assigned at Not on file Gender Identity Not on file Sexual Orientation Not on file documented as of this encounter Plan of Treatment Not on file documented as of this encounter Procedures Procedure Name Priority Date/Time Associated Diagnosis Comments CYTOPATHOLOGY Routine 12/02/2003 0:00 EDT documented in this encounter Results * CYTOPATHOLOGY (12/02/2003 0:00 EDT) Pathology Report: CYTOPATHOLOGY REPORT Reports generated via electronic interface contain original data; however they are lacking the format of the original report. Caution should be taken when reading/interpreti ng unformatted reports. Name: ? BARBARA BRAXTON ? Accession #: ? [id number] : ? 1970 (Age: 33) ??F ?Collect Date: ? 12/02/2003 Location: ? [facility] ? Receive Date: ? 12/03/2003 Provider: ?IVETH TRUJILLO MD Copy to: ? Specimen/Source: ?ThinPrep Pap Test, Cervix/Endocervix Last Menstrual Period: ? 10/21/03 Hormonal/Contracep tive Status: ? Tubal ligation ? SPECIMEN ADEQUACY ? Satisfactory for Evaluation - transformation zone component present GENERAL CATEGORIZATION ? Negative for Intraepithelial Lesion or Malignancy ? Document reviewed and electronically signed by: ? Lydia Jovel, [facility](ASCP) ? Report Date: ??12/09/2003 13:21 End of Report [facility] 12/02/2003 12/03/2003 Iveth Trujillo MD PATHOLOGY ORDERABLES [facility] [address] [place] [address] documented in this encounter Visit Diagnoses Not on filedocumented in this encounter
--- OUTSIDE RECORDS SUMMARY | 2023-12-29 09:30 | XMS_ITS | Encounter Summary ---
Author Organization [facility] [place] [address] Care Team Providers Care Foam Machine Operator Name Role Phone Wilfredo Morgan DO Primary Care Provider [phone] Reason for Visit * Auth/Cert (Routine) Specialty Diagnoses / Procedures Referred By Harlan t Referred To Contact Diagnoses Positive colorectal cancer screening using Cologuard test + cologuard Procedures PRO COLONOSCOPY, DIAGNOSTIC PRO COLONOSCOPY, BIOPSY PRO COLONOSCOPY, REMV LESN, SNARE COLONOSCOPY, DIAGNOSTIC Johnathan Fuentes MD [facility] [place] [address] [facility] Referral ID Status Reason Start Date Expiration Date Visits Re quested Visits Authorized [id number] 1 1 Encounter Details Date Type Department Care Team (Latest Contact Info) Description 05/20/2022 1:16 PM EST - 05/20/2022 4:55 PM EST Hospital Encounter [place] [address] Johnathan Fuentes MD [facility] [place] [address] Discharge Disposition: Home Social History Tobacco Use Types Packs/Day Years Used Date Smoking Tobacco: Former Cigarettes Smokeless Tobacco: Never Tobacco Cessation:Counseling Given: Not Answered Alcohol Use Standard Drinks/Week Comments Yes 3 (1 standard drink = 0.6 oz pur e alcohol) Sex and Gender Information Value Date Recorded Sex Assigned at Not on file Gender Identity Not on file Sexual Orientation Not on file documented as of this encounter Last Filed Vital Signs Vital Sign Reading Time Taken Comments Blood Pressure 106/65 05/20/2022 4:20 PM EST Pulse 81 05/20/2022 3:40 PM EST Temperature 36.5 ??C (97.7 ??F) 05/20/2022 1:28 PM ES T Respiratory Rate 16 05/20/2022 4:20 PM EST Oxygen Saturation 96% 05/20/2022 4:05 PM EST Inhaled Oxygen Concentration - - Weight 75.8 kg (167 lb) 05/20/2022 1:28 PM EST Height 162.6 cm (5' 4) 05/20/2022 1:28 PM EST Body Mass Index 28.67 05/20/2022 1:28 PM EST documented in this encounter Discharge Instructions * Discharge Instructions* Yoly Castañeda RN - 05/20/2022 3:52 PM EST Colonoscopy: What to Expect at Home Your Recovery Your doctor will talk to you about when you will need your next colonoscopy. Your doctor can help you decide how often you need to be checked. This will depend on the results of your test and your risk for colorectal cancer. After the test, you may be bloated or have gas pains. You may need to pass gas. If a biopsy was done or a polyp was removed, you may have streaks of blood in your stool (feces) for a few days. Problems such as heavy rectal bleeding may not occur until several weeks after the test. This isn't common. But it can happen after polyps are removed. This care sheet gives you a general idea about how long it will take for you to recover. But each person recovers at a different pace. Follow the steps below to get better as quickly as possible. How can you care for yourself at home? Activity Rest when you feel tired. You can do your normal activities when it feels okay to do so. Diet Follow your doctor's directions for eating. Unless your doctor has told you not to, drink plenty of fluids. This helps to replace the fluids that were lost during the colon prep. Do not drink alcohol. Medicines Your doctor will tell you if and when you can restart your medicines. He or she will also give you instructions about taking any new medicines. If you take blood thinners, such as warfarin (Coumadin), clopidogrel (Plavix), or aspirin, be sure to talk to your doctor. He or she will tell you if and when to start taking those medicines again. Make sure that you understand exactly what your doctor wants you to do. If polyps were removed or a biopsy was done during the test, your doctor may tell you not to take aspirin or other anti-inflammatory medicines for a few days. These include ibuprofen (Advil, Motrin) and naproxen (Aleve). Other instructions For your safety, do not drive or operate machinery until the medicine wears off and you can think clearly. Your doctor may tell you not to drive or operate machinery until the day after your test. Do not sign legal documents or make major decisions until the medicine wears off and you can think clearly. The anesthesia can make it hard for you to fully understand what you are agreeing to. Additional Information for Sedation Patients For patients who received sedation: You may have received medications before and/or during your procedure which effects your judgement and reaction time. Do not drive, operate machinery, drink alcoholic beverages or make important decisions for 24 hours. Be careful on stairs as you may be unsteady on your feet. You may eat a regular diet as tolerated. Do not smoke if you are alone. IV site: Slight redness or tenderness is normal, you can use a warm compress if you would like. If tenderness and/or redness increase or if foul drainage occurs, please contact your Doctor. Please call [phone] before 8pm Mon-Fri with problems, questions or concerns. If you call after 8pm or on weekends, call the Hospital at [phone] and ask to speak to the Nurse Case Manager production machine shop supervisor and the counting machine operator will contact that person for you. When should you call for help? Call [phone] anytime you think you may need emergency care. For example, call if: You passed out (lost consciousness). You pass maroon or bloody stools. You have trouble breathing. Call your doctor now or seek immediate medical care if: You have pain that does not get better after you take pain medicine. You are sick to your stomach or cannot drink fluids. You have new or worse belly pain. You have blood in your stools. You have a fever. You cannot pass stools or gas. Watch closely for changes in your health, and be sure to contact your doctor if you have any problems. Where can you learn more? [facility] View your After Visit Summary and more online at [email or web address] If you would like to provide feedback about your hospital experience, please call the Office of Patient and Family Relations at . If you have received this After Visit Summary in error, please immediately return it in person to the department, or notify the - Privacy Office by calling toll free at between the hours of 8AM and 5PM to arrange for our retrieval of the documents at no cost to you. Content Version: 12.2 ?? 6616-9060 [employer]. Care instructions adapted under license by [facility]. If you have questions about a medical condition or this instruction, always ask your healthcare professional. [employer] disclaims any warranty or liability for your use of this information. documented in this encounter Medications at Time of Discharge Medication Sig Dispensed Refills Start Date End Date amitriptyline (Elavil) 100 mg Tablet Take 100 mg by mouth as needed. cyclobenzaprine (Flexeril) 10 mg Tablet Take 10 mg by mouth as needed. 11/26/[address] (Cymbalta) 60 mg Capsule, Delayed Release(E.C.) Take 60 mg by mouth daily. 05/13/2022 traZODone (Desyrel) 150 mg Tablet Take 150 mg by mouth nightly. 05/15/2022 eszopiclone (LUNESTA) 2 mg Tab 2MG, PO, QHS prn 04/18/2006 documented as of this encounter H&P Notes * Johnahtan Fuentes MD - 05/20/2022 1:59 PM EST Patient Name: Barbara Braxton Patient Age: 52 y.o. Birthdate: 1970 Admit date: 05/20/2022 Attending Physician: Johnathan Fuentes MD Gastroenterology and Hepatology Pre-Procedure History and Physical Exam Procedure: Colonoscopy: Indication: (+) Cologuard There is no problem list on file for this patient. EXAM: HEENT: Airway examined, oropharynx clear Mallampati Score: II (soft palate, uvula, fauces visible) LUNGS: Clear to auscultation HEART: Regular rate and rhythm, normal S1, S2 ABDOMEN: Normal bowel sounds, soft, non tender, non distended, A/P Proceed with the planned endoscopic procedure. ASA 2 - Patient with mild systemic disease with no functional limitations Sedation Plan: moderate (conscious sedation) Risks and benefits of the procedure explained to the patient. Consent signed. documented in this encounter Plan of Treatment Not on file documented as of this encounter Procedures Procedure Name Priority Date/Time Associated Diagnosis Comments SPECIMEN TO PATHOLOGY Routine 05/20/2022 3:39 PM EST SPECIMEN TO PATHOLOGY Routine 05/20/2022 3:39 PM EST SURGICAL PATHOLOGY REPORT Routine 05/20/2022 3:12 PM EST Colonoscopy, Remv Josue, Snare ([id number]) 05/20/2022 2:34 PM EST + cologuard COLONOSCOPY Routine 05/20/2022 2:07 PM EST documented in this encounter Results * Specimen to Pathology (05/20/2022 3:39 PM EST) AP Specimen 05/20/2022 3:39 PM EST 05/20/2022 3:39 PM EST Narrative [facility] - 05/20/2022 3:39 PM EST Specimen requisition ordered. ??Separate Pathology report to follow Johnathan Fuentes MD PATHOLOGY/CYTOLOGY O RDERABLES [facility] [place] [address] * Specimen to Pathology (05/20/2022 3:39 PM EST) AP Specimen 05/20/2022 3:39 PM EST 05/20/2022 3:39 PM EST Narrative [facility] - 05/20/2022 3:39 PM EST Specimen requisition ordered. ??Separate Pathology report to follow Johnathan Fuentes MD PATHOLOGY/CYTOLOGY O S[facility]A [facility] [place] [id number] * Surgical Pathology Report (05/20/2022 3:12 PM EST) Final Diagnosis [id number] ? Location: 4T; EA10; A The signing pathologist has (i) examined the relevant preparation(s) for the specimen(s) and (ii) rendered or confirmed the diagnosis(es). . ?Surgical Pathology DIAGNOSIS A - Terminal ileum ulcers, biopsy: - Active ileitis with ?? ulceration, see Discussion. B - Sigmoid colon polyps 6mm, 2cm, excision: - ??Tubular adenoma with mucosal ??prolapse. - Hyperplastic polyp. CR-PX Electronically signed by: ?Liam ANN PhD, Maiad Verified: ??05/26/2022 8:58 ?? Pathologist Performed at: ??-[facility] Dept. of [place]ology, [place] [address] Legislative Advocate: Edy Armstrong MD, FCAP, ??IA Certificate: [id number] DISCUSSION Focal active inflammation in the absence of histologic evidence of chronicity is a nonspecific finding. In patients with diarrhea or symptoms, these changes may reflect NSAID-related ileitis, mild acute self-limited ileitis of infectious etiology or rarely aphthous lesions of Crohn's disease. In the absence of diarrhea, symptoms, or endoscopic findings, these changes are usually of no clinical significance. SPECIMEN(S) SUBMITTED A - terminal ileum ulcers, biopsy (Multiple) B - sigmoid colon polyps 6mm, 2cm, excision (Multiple) CLINICAL INFORMATION Positive Cologuard SPECIMEN PROCESSING A - Labeled/Fixative : Terminal ileum ulcers, formalin. Quantity/Size: Fragments, 0.2-0.3 cm. Tissue Description: Soft, ramirez-pink tissues. Sections/Process ing: Submitted en toto ??in 1 cassette labeled A1. B - Labeled/Fixative : Sigmoid polyps 6 mm, 2 cm, formalin. Quantity/Size: Three, from 0.3 cm to 1.4 x 0.5 x 0.1 cm. Tissue Description: Polypoid ramirez-pink mucosal tissues. Sections/Process ing: Entirely submitted in 2 cassettes labeled B1-B2. ??pps 05/26/2022 8:58 AM EST [facility] GI Biopsy 05/20/2022 3:12 PM EST 05/20/2022 3:12 PM EST GI Biopsy 05/20/2022 3:12 PM EST 05/20/2022 3:12 PM EST Johnathan Fuentes MD PATHOLOGY/CYTOLOGY O RDERABLES Performing Organization Address [facility]/State/[facility] Co de Phone Number [facility] [address] [place] [address] * COLONOSCOPY (05/20/2022 2:07 PM EST) COLONOSCOPY [facility] Endoscopy Procedure Date: 05/20/2022 2:07 PM ? Patient Name: Barbara Braxton ? N: [id number] ? Date of : 1970 ? Age: 52 ? Order #: [id number] ? Instrument Name: [id number] ? Procedure: ? Colonoscopy Indications: ? Positive Cologuard test Patient Profile: ? 52 yo F with (+) Cologuard presents ? for colonsocopy. Providers: ? Johnathan Fuentes, Iain Kaplan, ? DARIUS, Elizabeth Mandel Referring MD: ?Wilfredo Morgan, DO Medicines: ? Midazolam 5 mg IV, Fentanyl 200 ? micrograms IV Complications: ? No immediate complications. Procedure: ? Pre-Anesthesia Assessment: ? - Prior to the procedure, a History ? and Physical was performed, and ? patient medications and allergies ? were reviewed. The patient is ? competent. The risks and benefits ? of the procedure and the sedation ? options and risks were discussed ? with the patient. All questions ? were answered and informed consent ? was obtained. Patient ? identification and proposed ? procedure were verified by the ? physician, the nurse and the ? document image technician in the pre-procedure ? area in the procedure room. Mental ? Status Examination: alert and ? oriented. Airway Examination: ? normal oropharyngeal airway and ? neck mobility. Respiratory ? Examination: clear to auscultation. ? CV Examination: normal. ? Prophylactic Antibiotics: The ? patient does not require ? prophylactic antibiotics. Prior ? Anticoagulants: The patient has ? taken no anticoagulant or ? antiplatelet agents. ASA Grade ? Assessment: II - A patient with ? mild systemic disease. After ? reviewing the risks and benefits, ? the patient was deemed in ? satisfactory condition to undergo ? the procedure. The anesthesia plan ? was to use moderate sedation / ? analgesia (conscious sedation). ? Immediately prior to administration ? of medications, the patient was ? re-assessed for adequacy to receive ? sedatives. The heart rate, ? respiratory rate, oxygen ? saturations, blood pressure, ? adequacy of pulmonary ventilation, ? and response to care were monitored ? throughout the procedure. The ? physical status of the patient was ? re-assessed after the procedure. ? The procedure, indications, ? benefits, risks and alternatives ? were explained to the patient. ? Specifically discussed were ? potential complications including, ? but not limited to, bleeding, ? perforation, infection, missing a ? cancer, and adverse medication ? reactions. The patient was placed ? in the left lateral decubitus ? position, and a digital rectal exam ? was performed. The Colonoscope was ? inserted in the anus and under ? direct visualization, advanced to ? the terminal ileum, with ? identification of the appendiceal ? orifice and IC valve. Careful ? inspection was made as the ? colonoscope was withdrawn. The ? colonoscopy was performed without ? difficulty. The patient tolerated ? the procedure well. The quality of ? the bowel preparation was adequate. ? The terminal ileum, ileocecal ? valve, appendiceal orifice, and ? rectum were photographed. 25 minute ? withdrawal time. ? Findings: ? The perianal and digital rectal examinations were ? normal. ? A segmental area of mucosa in the terminal ileum was ? erythematous. Biopsies were taken with a cold forceps ? for histology. ? A 4 mm polyp was found in the sigmoid colon. The ? polyp was sessile. The polyp was removed with a cold ? snare. Resection and retrieval were complete. ? A 20 mm polyp was found in the sigmoid colon. The ? polyp was pedunculated. The polyp was removed with a ? cold snare. Resection and retrieval were complete. To ? prevent bleeding after the polypectomy, four ? hemostatic clips were placed (one misfire)(MR ? conditional). There was no bleeding at the end of the ? procedure. ? Diverticula were found in the sigmoid colon. ? Moderate Sedation: ? Moderate (conscious) sedation was administered by the ? endoscopy nurse and supervised by the endoscopist. ? The following parameters were monitored: oxygen ? saturation, heart rate, blood pressure, and response ? to care. ? I was present during the intraservice time as ? documented by the sedation RN. Impression: ?- Erythematous mucosa in the ? terminal ileum. Biopsied. ? - One 4 mm polyp in the sigmoid ? colon, removed with a cold snare. ? Resected and retrieved. ? - One 20 mm polyp in the sigmoid ? colon, removed with a cold snare. ? Resected and retrieved. Clips (MR ? conditional) were placed. ? - Diverticulosis in the sigmoid ? colon. Recommendation: ?- Patient has a contact number ? available for emergencies. The ? signs and symptoms of potential ? delayed complications were ? discussed with the patient. Return ? to normal activities tomorrow. ? Written discharge instructions were ? provided to the patient. ? - Await pathology results. ? - Repeat colonoscopy for ? surveillance based on pathology ? results. ? Attending Participation: ? I personally performed the entire procedure. ? _ Johnathan AshleyJoanna Fuentes, 05/20/2022 3:41:55 PM Number of Addenda: 0 Note Initiated On: 05/20/2022 2:07 PM PROVATION 05/20/2022 2:07 PM EST Wilfredo Morgan DO GENERAL SURGICAL ORD ERABLES PROVATION documented in this encounter Visit Diagnoses Not on filedocumented in this encounter Administered Medications Inactive Administered Medications - up to 3 most recent administrations Medication Order MAR Action Action Date Dose Rate Site lactated ringers infusion 100 mL/hr, Intravenous, CONTINUOUS, Starting on Mon05/20/22 at 1345, Until Mon05/20/22 at 1652, Endoscopy (Day of Procedure) New Bag 05/20/2022 1:38 PM EST 100 mL/hr 100 mL/hr documented in this encounter Active and Recently Administered Medications Times are shown in EST. Continuous Medication Order 05/18/2022 05/19/2022 05/20/2022 lactated ringers infusion (CANCELED) 100 mL/hr, Intravenous, CONTINUOUS, Starting on Mon05/20/22 at 1345, Until Mon05/20/22 at 1652, Endoscopy (Day of Procedure) 1338 (New Bag - Prov ider: Petra Dorsey RN) PRN Medication Order 05/18/2022 05/19/2022 05/20/2022 fentaNYL (pf) (50 mcg/mL) multi-dose injection (CANCELED) ONCE PRN, Starting on Mon05/20/22 at 1459, Until Mon05/20/22 at 1855, Intra-Operative (Intra-Procedure), Routine 1459 (Given - Provid er: Iain Kaplan RN)1504 (Given - Provider: Iain Kaplan RN)1507 (Given - Provider: Iain Kaplan RN)1510 (Given - Provider: Iain Kaplan RN) midazolam (pf) (Versed) (1 mg/mL) multi-dose injection (CANCELED) ONCE PRN, Starting on Mon05/20/22 at 1459, Until Mon05/20/22 at 1855, Intra-Operative (Intra-Procedure), Routine 1459 (Given - Provid er: Iain Kaplan RN)1504 (Given - Provider: Iain Kaplan RN)1507 (Given - Provider: Iain Kaplan RN)1510 (Given - Provider: Iain Kaplan RN) documented in this encounter Care Teams Foam Machine Operator Relationship Specialty Start Date End Date Wilfredo Morgan DO [address] [place] [address] PCP - General Family Medicine 04/18/22 documented as of this encounter
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
--- OUTSIDE RECORDS SUMMARY | 2023-12-29 09:30 | XMS_ITS | Encounter Summary ---
Author Organization [facility] Address [address] [place] [address] Care Team Providers Care Collar Band Creaser Name Role Phone Unknown, Provider Primary Care Provider Reason for Visit * Reason Onset Date Comments Medications Refill 05/12/2020 Encounter Details Date Type Department Care Team (Late st Contact Info) Description 05/12/2020 Telephone [facility] Ophthalmology - [address] [id number] Hemant Cantor MD 111 [facility], [address] [place] [address] Medications Refill Social History Tobacco Use Types Packs/Day Years [...] encounter Miscellaneous Notes * Telephone Encounter - Romulo George RN - 05/15/2020 8289 EST Patient has MRI done today. Romulo Monsalve RN 05/15/2020 15:57 * Telephone Encounter - Romulo George RN - 05/14/2020 1624 EST LMOM asking patient to call back. Wondering if she had heard from PCP about meds. Romulo Monsalve RN 05/14/2020 16:29 * Telephone Encounter - Romulo George RN - 05/13/2020 1401 EST Nurse called back. Relayed the message. She will herrera into this. Patient's PCP not in this week. Shewill have to ask some else. Asked that they call back with an update. Romulo Monsalve RN 05/13/2020 14:02 * Telephone Encounter - Romulo George RN - 05/13/2020 1154 EST LMOM asking for nursing to call back about patient. Asked that nursing call back to see about having them order Ativan as per Dr. Cantor's directions. Romulo Monsalve RN 05/13/2020 11:55 * Telephone Encounter - Romulo George RN - 05/13/2020 0807 EST Patient called back. She is scheduled to finish her MRI this Monday. She is not able to come to [place] to pickler helper the RX. She asked if we can call her PCP and see if she could write for the Ativan. Stated we would call and would follow up with her with a phone call after. Dahlia Gurrola is PCP. Romulo Monsalve RN 05/13/2020 8:08 * Telephone Encounter - Romulo George RN - 05/12/2020 1208 EST lmom asking patient to call back. Romulo Monsalve RN 05/12/2020 12:09 * Telephone Encounter - Romulo George RN - 05/12/[address] Cantor wrote for Ativan. Please follow up with patient/family. Unsure if placed in mail it will make it on time. Miracle for someone to pick it up. Script at [facility] RN desk. Romulo Monsalve RN 05/12/2020 11:37 * Telephone Encounter - Romulo George RN - 05/12/2020 0926 EST Also, left on Dr Cantor's desk for his review. Romulo Monsalve RN 05/12/2020 9:26 * Telephone Encounter - Greta Yousif - 05/12/2020 0920 EST MRI team (from [facility]) called with request for another dose of LORazepam ATIVAN) 2 mg tablet 2 of the 3 parts of her MRI requested by Dr Cantor were completed today, please let him know that will be the first results he will see The injector part of the MRI equipment failed and they have to replace the part and therefor reschedule the 3rd part of her MRI She is very high anxiety and will need another dose of ATIVAN in order to get thru that. The MRI team will reschedule her for later this week or early next week. And request Dr Cantor que up to her pharmarcy another dose Greta Yousif 05/12/2020 9:24 documented in this encounter Plan of Treatment Not on file documented as of this encounter Visit Diagnoses Not on filedocumented in this encounter Care Teams Collar Band Creaser Relationship Specialty Start Date End Date Unknown, Provider, PCP - General 03/17/15 11/04/22 documented as of this encounter
--- OUTSIDE RECORDS SUMMARY | 2023-12-29 09:30 | XMS_ITS | Encounter Summary ---
Author Organization [facility] Address [address] [place] [address] Care Team Providers Care Crtts Name Role Phone Unknown, Provider Primary Care Provider [phone] Reason for Visit * Reason Onset Date Comments Other 04/29/2020 Encounter Details Date Type Department Care Team (Late st Contact Info) Description 04/29/2020 Telephone [facility] Ophthalmology - [facility] [address] [place] [address] Hemant Cantor MD 111 [facility], [facility] [address] [place] [address] Other Social History Tobacco Use [...] encounter Miscellaneous Notes * Telephone Encounter - Stephanie Velasco RN - 04/29/2020 1615 EST Called and relayed message to patient. * Telephone Encounter - Enma Brantley - 04/29/2020 1534 EST PT aware she will need Xray done before MRI. Asked if she could have more Ativan for her MRI because she is a tank when it comes to taking meds and imaging could be about 3 hours... * Telephone Encounter - Mae Francis - 04/29/[address] cantor ordered an MRI for this patient. Pt is calling to let him know that there is a possibility that there may be medal in her eye from a previous job she had. She wants to make sure that this is going to be done at [facility]? 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
--- OUTSIDE RECORDS SUMMARY | 2023-12-29 09:30 | XMS_ITS | Encounter Summary ---
Author Organization [facility] [place] [address] Care Team Providers Care Wood Drill Operator Name Role Phone Wilfredo Morgan DO Primary Care Provider [phone] Encounter Details Date Type Department Care Team (Late st Contact Info) Description 06/01/2022 [place] [phone] Mayuri Muhammad Social History Tobacco Use Types [...] * Telephone Encounter - Mayuri Muhammad - 06/01/2022 8:51 AM EST Called patient to ask if she wants a referral for 4L clinic visit per letter from Dr Fuentes She is going to discuss with her PCP She will call us if she does want the referral documented in this encounter Plan of Treatment Not on file documented as of this encounter Visit Diagnoses Not on filedocumented in this encounter Care Teams Wood Drill Operator Relationship Specialty Start Date End Date Wilfredo Morgan DO [address] [place] [address] PCP - General Family Medicine 04/18/22 documented as of this encounter
--- OUTSIDE RECORDS SUMMARY | 2023-12-29 09:30 | XMS_ITS | Encounter Summary ---
Author Organization [facility] Address [address] [place] [address] Care Team Providers Care Community Service Worker Name Role Phone Unavailable Primary Care Provider Unavailabl e Encounter Details Date Type Department Care Team (Late st Contact Info) Description 03/18/2011 Results Only [facility] Laboratory Services - [facility] ([facility] [place] [address] [place] [address] Can Lauren NP [address] [place] [address] Social History Tobacco Use Types Packs/Day Years [...] Diagnosis Comments PAP TEST- RESULT ONLY Routine 03/18/2011 0:00 EST documented in this encounter Results * PAP TEST- RESULT ONLY (03/18/2011 0:00 EST) Pathology Report: CYTOPATHOLOGY REPORT Reports generated via electronic interface contain original data; however they are lacking the format of the original report. Caution should be taken when reading/interpreti ng unformatted reports. Name: ? BARBARA BRAXTON ? Accession #: ? [id number] ? : ? 1970 (Age: 41) ??F ?Collect Date: ? 03/18/2011 ? Location: ? [facility] ? Receive Date: ? 03/22/2011 ? Provider: CAN LAUREN NP Copy to: ? Final Report SPECIMEN ADEQUACY ? Satisfactory for Evaluation - transformation zone component present GENERAL CATEGORIZATION ? Negative for Intraepithelial Lesion or Malignancy ?? Last Menstural Period: 11 months ago Hormonal/Contracep tive status: Tubal ligation Treatment History: Miscellaneous treatment: 2 uterine biopsies Specimen/Source: ??Pap Test, Cervix/Endocervix, ThinPrep Imaging System with manual evaluation Document reviewed and electronically signed by: ? CATHY Mares(ASCP) ? Report ??Date: 03/25/2011 13:40 HPV with Pap Test ? Date Ordered: ? 03/25/2011 ? Status: ?? Signed Out ?Date Complete: ? 03/30/2011 ? By: ??System Interface ? Date Reported: ? 03/30/2011 ? Interpretation RESULT: Negative for HPV types 16, 18, 31, 33, 35, 39, 45, 51, 52, 56, 58, 59, and 68. Comments Document reviewed and electronically signed by: ? System Interface ? Report date: 03/30/2011 By the signature above, the attending physician certifies that he/she has personally conducted a gross and/or microscopic examination of the described specimens and rendered or confirmed the above diagnosis. End of Report DESTINEY WERNER 03/18/2011 03/22/2011 Can Lauren NP PATHOLOGY ORDERABLES DESTINEY OTERO [facility] [address] [place] [address] documented in this encounter Visit Diagnoses Not on filedocumented in this encounter
--- OUTSIDE RECORDS SUMMARY | 2023-12-29 09:30 | XMS_ITS | Encounter Summary ---
Author Organization [facility] Address [address] [place] [address] Care Team Providers Care Vp Corporate Development Name Role Phone Unavailable Primary Care Provider Unavailabl e Encounter Details Date Type Department Care Team (Late st Contact Info) Description 01/13/2004 Results Only [facility] - [facility] [address] [place] [address] Iveth Trujillo MD [address] [place] [address] Social History Tobacco Use Types Packs/Day Years Used Date Smoking Tobacco: Never Assessed Sex and Gender Information Value Date Recorded Sex Assigned at Not on file Gender Identity Not on file Sexual Orientation Not on file documented as of this encounter Plan of Treatment Not on file documented as of this encounter Procedures Procedure Name Priority Date/Time Associated Diagnosis Comments SURGICAL PATHOLOGY Routine 01/13/2004 0:00 EDT documented in this encounter Results * SURGICAL PATHOLOGY (01/13/2004 0:00 EDT) Pathology Report: SURGICAL PATHOLOGY REPORT Reports generated via electronic interface contain original data; however they are lacking the format of the original report. Caution should be taken when reading/interpreti ng unformatted reports. Name: ? BARBARA BRAXTON ? Accession #: ? [id number] ? : ? 1970 (Age: 33) ??F ? Collect Date: ? 01/13/2004 ? Location: ? [facility] ? Receive Date: ? 01/14/2004 ? Provider: IVETH TRUJILLO MD Copy to: GILMA NASSAR MD ? Final Pathologic Diagnosis: ? Endometrium, biopsy: - Late secretory endometrium. Document reviewed and electronically signed by: LANE ASENCIO [facility] [place] Report ??Date: 01/16/2004 14:57 By the signature above, the attending physician certifies that he/she has personally conducted a gross and/or microscopic examination of the described specimens and rendered or confirmed the above diagnosis. Specimen(s) Received: ? Endometrial bx Clinical History: ? Irreg menses, inguinal adenopathy Gross Description: ? Received in formalin labelled Braxton and endometrial bx are 2.0 x 2.0 x 0.3 cm of multiple ramirez-red hemorrhagic slightly mucoid soft tissue fragments. The specimen is entirely submitted in one cassette. (Kaushik Burch)/eliu ?? End of Report DESTINEY WERNER 01/13/2004 01/14/2004 15: 54 EDT Iveth Trujillo MD PATHOLOGY ORDERABLES Performing Organization Address City/State/[facility] Co de Phone Number DESTINEY WERNER [address] [place] [address] documented in this encounter Visit Diagnoses Not on filedocumented in this encounter
--- OUTSIDE RECORDS SUMMARY | 2023-12-29 09:30 | XMS_ITS | Encounter Summary ---
[facility] [place] [address] Care Team Providers Care Liberal Arts And Humanities Chair Name Role Phone Wilfredo Morgan DO Primary Care Provider [phone] Reason for Visit * Auth/Cert (Routine) Specialty Diagnoses / Procedures Referred By Conttom t Referred To Contact Diagnoses Positive colorectal cancer screening using Cologuard test + cologuard Procedures PRO COLONOSCOPY, DIAGNOSTIC PRO COLONOSCOPY, BIOPSY PRO COLONOSCOPY, REMV LESN, SNARE COLONOSCOPY, DIAGNOSTIC Johnathan Fuentes MD [facility] [place] [address] [facility] Referral ID Status Reason Start Date Expiration Date Visits Re quested Visits Authorized [id number] 1 1 Encounter Details Date Type Department Care Team (Late st Contact Info) Description 05/20/2022 2:30 PM EST - 05/20/2022 3:30 PM EST Surgery [place] [address] Johnathan Fuentes MD [facility] [place] [address] COLONOSCOPY, POLYPECTOMY, REMOVAL LESION BY SNARE (WRVU 4.57) Social History Tobacco Use Types Packs/Day Years [...] Sign Reading Time Taken Comments Blood Pressure 127/98 05/20/2022 3:30 PM EST Pulse 81 05/20/2022 3:30 PM EST Temperature 36.5 ??C (97.7 ??F) 05/20/2022 1:28 PM ES T Respiratory Rate 16 05/20/2022 3:30 PM EST Oxygen Saturation 100% 05/20/2022 3:30 PM EST Inhaled Oxygen Concentration - - [...] occurs, please contact your Doctor. Please call [phone] before 8pm Mon-Fri with problems, questions or concerns. If you call after 8pm or on weekends, call the Hospital at [phone] and ask to speak to the Computed Tomography Technician human performance consultant and the grating machine operator will contact that person for you. When should you call for help? Call [phone] anytime you think you may need emergency [...] any problems. Where can you learn more? [facility] View your After Visit Summary and more online at [email or web address] If you would like to provide feedback about your hospital experience, please call the Office of Patient and Family Relations at . If you have received this After Visit Summary in error, please immediately return it in person to the department, or notify the Replaced By [facility] Privacy Office by calling toll free at between the hours of 8AM and 5PM to arrange for our retrieval of the documents at no cost to you. Content Version: 12.2 ?? [id number] [employer]. Care instructions adapted under license by [facility]. If you have questions about a medical condition or this instruction, always ask your healthcare professional. [employer] disclaims any warranty or liability for your [...] as of this encounter H&P Notes * Johnathan Fuentes MD - 05/20/2022 1:59 PM EST Patient Name: Barbara Braxton Patient Age: 52 y.o. Birthdate: 1970 Admit date: 05/20/2022 Attending Physician: Johnathan Fuenets MD Gastroenterology and Hepatology Pre-Procedure History and [...] REPORT Routine 05/20/2022 3:12 PM EST Colonoscopy, Joycelyn Martin ([id number]) 05/20/2022 2:34 PM EST + cologuard COLONOSCOPY Routine 05/20/2022 2:07 PM EST documented in this encounter Results * Specimen to Pathology (05/20/2022 3:39 PM EST) AP Specimen 05/20/2022 3:39 PM EST 05/20/2022 3:39 PM EST Narrative [facility] - 05/20/2022 3:39 PM EST Specimen requisition ordered. ??Separate Pathology report to follow Johnathan Fuentes MD PATHOLOGY/CYTOLOGY O RDERABLES [facility] [place] [address] * Specimen to Pathology (05/20/2022 3:39 PM EST) AP Specimen 05/20/2022 3:39 PM EST 05/20/2022 3:39 PM EST Narrative [facility] - 05/20/2022 3:39 PM EST Specimen requisition ordered. ??Separate Pathology report to follow Johnathan Fuentes MD PATHOLOGY/CYTOLOGY [facility] [place] [id number] * Surgical Pathology Report (05/20/2022 3:12 PM EST) Final Diagnosis [id number] ? Location: 4T; EA10; A The signing [...] CR-PX Electronically signed by: ?Liam ANN PhD, Maida Verified: ??05/26/2022 8:58 ?? Pathologist Performed at: ??-[facility] Dept. of Pathology, [place] [address] Line Assigner: Edy Armstrong MD, FCAP, ??CLIA Certificate: [id number] DISCUSSION Focal active inflammation in the absence [...] labeled B1-B2. ??pps 05/26/2022 8:58 AM EST [facility] GI Biopsy 05/20/2022 3:12 PM EST 05/20/2022 3:12 PM EST GI Biopsy 05/20/2022 3:12 PM EST 05/20/2022 3:12 PM EST Johnathan Fuentes MD PATHOLOGY/CYTOLOGY O RDERABABAR [facility] [address] [place] [address] * COLONOSCOPY (05/20/2022 2:07 PM EST) COLONOSCOPY [facility] Endoscopy Procedure Date: 05/20/2022 2:07 PM ? Patient Name: Barbara Braxton ? Date of : 1970 ? Age: 52 ? Order #: [id number] ? Instrument Name: [id number] ? Procedure: ? Colonoscopy Indications: ? Positive Cologuard test Patient Profile: ? 52 yo F with (+) Cologuard presents ? for colonsocopy. Providers: ? Johnathan Fuentes, Iain Kaplan, ? Elizabeth MCCOY Referring MD: ?Wilfredo Morgan, DO Medicines: ? [...] ? physician, the nurse and the ? it help desk technician in the pre-procedure ? area in [...] performed the entire procedure. ? _ Johnathan Fuentes, 05/20/2022 3:41:55 PM Number of Addenda: 0 Note Initiated On: 05/20/2022 2:07 PM PROVATION 05/20/2022 2:07 PM EST Wilfredo Morgan DO GENERAL SURGICAL ORD ERABLES PROVATION documented in this encounter Visit Diagnoses Not on filedocumented in this encounter Administered Medications Inactive Administered Medications - up to 3 most recent administrations Medication Order MAR Action Action Date Dose Rate Site fentaNYL (pf) (50 mcg/mL) multi-dose injection ONCE PRN, Starting on Mon05/20/22 at 1459, Until Mon05/20/22 at 1855, Intra-Operative (Intra-Procedure), Routine Given 05/20/2022 3:10 PM EST 50 mcg Given 05/20/2022 3:07 PM EST 50 mcg Given 05/20/2022 3:04 PM EST 50 mcg lactated ringers infusion 100 mL/hr, Intravenous, CONTINUOUS, Starting on Mon05/20/22 at 1345, Until Mon05/20/22 at 1652, Endoscopy (Day of Procedure) New Bag 05/20/2022 1:38 PM EST 100 mL/hr 100 mL/hr midazolam (pf) (Versed) (1 mg/mL) multi-dose injection ONCE PRN, Starting on Mon05/20/22 at 1459, Until Mon05/20/22 at 1855, Intra-Operative (Intra-Procedure), Routine Given 05/20/2022 3:10 PM EST 1 mg Given 05/20/2022 3:07 PM EST 1 mg Given 05/20/2022 3:04 PM EST 1 mg documented in this encounter Active and Recently [...] RN) documented in this encounter Care Teams Liberal Arts And Humanities Chair Relationship Specialty Start Date End Date Wilfredo Morgan DO [address] [place] [address] PCP - General Family Medicine 04/18/22 documented as of this encounter
--- OUTSIDE RECORDS SUMMARY | 2023-12-29 09:30 | XMS_ITS | Clinical Summary ---
Author Organization [facility] Address [facility] [place] [address] Care Team Providers Care Reservations Clerk Name Role Phone Wilfredo Morgan DO Primary Care Provider [phone] Allergies Active Allergy Reactions Criticality Noted Date Comments Codeine Phosphate CIS - INTOLERANCE Indomethacin Sodium CIS - INTOLERANCE Medications Medication Sig Dispensed Refills Start Date End Date Status eszopiclone (LUNESTA) 2 mg Tab 2MG, PO, QHS prn 04/18/2006 Active amitriptyline (Elavil) 100 mg Tablet Take 100 mg by mouth as needed. Active cyclobenzaprine (Flexeril) 10 mg Tablet Take 10 mg by mouth as needed. 11/26/[address] (Cymbalta) 60 mg Capsule, Delayed Release(E.C.) Take 60 mg by mouth daily. 05/13/2022 Active traZODone (Desyrel) 150 mg Tablet Take 150 mg by mouth nightly. 05/15/2022 Active Social History Tobacco Use Types Packs/Day Years Used Date Smoking Tobacco: Former Cigarettes Smokeless Tobacco: Never Tobacco Cessation:Counseling Given: Not Answered Alcohol Use Standard Drinks/Week Comments Yes 3 (1 standard drink = 0.6 oz pur e alcohol) Sex and Gender Information Value Date Recorded Sex Assigned at Not on file Gender Identity Not on file Sexual Orientation Not on file Last Filed Vital Signs Vital Sign Reading [...] Mass Index 28.67 05/20/2022 1:28 PM EST Plan of Treatment Health Maintenance Due Date Last Done Comments CT Colonography 1971 FIT DNA 1971 FIT 1970 Sigmoidoscopy 1970 HIV screen 1989 Hepatitis C Screening 1989 Hepatitis B vaccine (0-59 yrs) (1) 1990 Tdap adult 1990 Tetanus vaccine 1990 HPV test 2001 PAP Smear 2001 Breast Cancer Share Decision Needed 2011 Breast Cancer screening 2011 Diabetes Screening (HgbA1C or Glucose) 2011 Zoster vaccine (1 of 2) 2021 Covid-19 Vaccine (1 - season) 2023 Influenza (Flu) vaccine (1 o f 1 - Influenza standard series) 01/07/2024 Colonoscopy 05/20/2032 05/20/2022, 05/20/2022 Colorectal Cancer Screening 05/20/2032 Sigmoidoscopy (10 year) with FIT yearly 05/20/2032 0 05/20/2022, 05/20/2022 Procedures Procedure Name Priority Date/Time Associated Diagnosis Comments COLONOSCOPY Routine 05/20/2022 2:07 PM EST from Last 3 Months or Most Recently Relevant to Health Maintenance Results * COLONOSCOPY (05/20/2022 2:07 PM EST) COLONOSCOPY [facility] Endoscopy Procedure Date: 05/20/2022 2:07 PM ? Patient Name: Barbara Braxton ? Date of : 1970 ? Age: 52 ? Order #: [id number] ? Instrument Name: [id number] ? Procedure: ? Colonoscopy Indications: ? Positive Cologuard test Patient Profile: ? 52 yo F with (+) Cologuard presents ? for colonsocopy. Providers: ? Iain Jama, ? RN, Elizabeth Mandel Referring MD: ?Wilfredo Morgan, DO [...] ? physician, the nurse and the ? dictaphone technician in the pre-procedure ? area in [...] performed the entire procedure. ? _ Johnathan Adan Gina, 05/20/2022 3:41:55 PM Number of Addenda: 0 Note Initiated On: 05/20/2022 2:07 PM PROVATION 05/20/2022 2:07 PM EST Wilfredo Morgan DO GENERAL SURGICAL ORD ERABLES PROVATION from Last 3 Months or Most Recently Relevant to Health Maintenance Care Teams Reservations Clerk Relationship Specialty Start Date End Date Wilfredo Morgan DO [address] [place] [address] PCP - General Family Medicine 04/18/22
--- NOTE | 2023-12-29 09:45 | DI.RAD_ITS ---
Exam(s) XR FINGER RT INDEX EXAM: XR FINGER RT INDEX CLINICAL HISTORY: pain. TECHNIQUE: 2D digital imaging was performed. Three views. COMPARISON: No exams were available for comparison FINDINGS: BONES: No acute fracture is present. No bony destructive lesion is seen. JOINTS: No dislocation present. Minimal degenerative changes of the interphalangeal joints. SOFT TISSUE: Normal. IMPRESSION: Minimal degenerative changes of the interphalangeal joints. DATA REPOSITORY: RADIATION DOSE DELIVERED:
[2023-12-29] MEDS: Ibuprofen 600 MG TAB PO (09:55)
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
== END 2023-12-29 10:37 | disposition home or self-care (01) ==
PROVIDERS: Emergency Provider Emergency Medicine; PCP Nurse Practitioner Family
DX: S60.021A Contusion of right index finger without damage to nail, initial encounter (principal); W23.0XXA Caught, crushed, jammed, or pinched between moving objects, initial encounter; Y93.89 Activity, other specified; Y92.59 Other trade areas as the place of occurrence of the external cause; Y99.0 Civilian activity done for income or pay; Z87.891 Personal history of nicotine dependence
CPT/HCPCS: 99283; 73140

== ENCOUNTER 2024-03-18 01:48 | Outpatient (CLI) | payer OTHER, SELFPAY ==
--- NOTE | 2024-03-18 14:25 | DI.MAMMO_ITS ---
Exam(s) MAMMO SCREENING EXAM: MAMMO SCREENING CLINICAL HISTORY: Screening, Z12.31 TECHNIQUE: Mammograms were interpreted according to the usual protocol including computer analysis w [facility] CAD system, tomosynthesis and C-view imaging. COMPARISON: 2013 through 2022 FINDINGS: The breasts are composed of mainly fatty density , Breast Density category A. No suspicious masses or suspicious microcalcifications are seen. No skin thickening or abnormal axillary lymph nodes are seen. There has been no significant change from prior exams. IMPRESSION: BI-RADS Category 1, Negative mammogram Yearly screening mammography is recommended. Breast Density - Category A, fatty density. A negative radiographic report should not delay biopsy if a dominant or clinically suspicious mass is present. Up to ten percent of cancers are not identified on mammography. A negative report may reinforce clinical impression. Adenosis and dense breasts may obscure an underlying neoplasm. False positive reports average 6 to 10%. Patient will receive a letter notifying them of these results.
== END 2024-03-18 02:08 ==
LOC: DI 01:48
PROVIDERS: PCP Nurse Practitioner Family; Visit Provider Nurse Practitioner Family
DX: Z12.31 Encounter for screening mammogram for malignant neoplasm of breast (principal); R92.313 Mammographic fatty tissue density, bilateral breasts
CPT/HCPCS: 77063; 77067

== ENCOUNTER 2024-10-02 13:06 | Emergency (ER) | payer OTHER, SELFPAY ==
[2024-10-02 13:07] VITALS: BP 142/86; PULSE 78; RESP 20; TEMP 36.9; O2SAT 96
[2024-10-02 13:10] VITALS: BP 142/86; PULSE 78; RESP 20; TEMP 36.9; O2SAT 96
--- NOTE | 2024-10-02 13:15 | RT.EKG_ITS ---
APPROVED REPORT Exam: Resting ECG Reason for Exam: chest pain Patient Location: E HR:65 bpm ECG Measurements Heart Rate 65 AXIS IN 159 P 31 QRSd 142 QRS 87 QT 432 T 0 QTc 450 Conclusion Sinus rhythm...normal P axis, V-rate 60- 99 Right bundle branch block...QRSd>120, terminal axis(90,270)
[2024-10-02 13:33] VITALS: RESP 2
[2024-10-02] MEDS: Albuterol 2.5 MG/3 ML INH SOLN VIAL UPD (13:33)
--- NOTE | 2024-10-02 14:05 | DI.RAD_ITS ---
Exam(s) XR CHEST 2V PA LATERAL EXAM: XR CHEST 2V PA LATERAL CLINICAL HISTORY: shortness of breath. TECHNIQUE: 2D digital imaging was performed. COMPARISON: CT CT THORAX ABD/PEL CTA from 08/24/2023 CR XR PORTABLE CHEST AP from 08/24/2023 FINDINGS: 2 views: Heart size is normal. The mediastinum is not widened. There are densities symmetrically situated in the upper lobes over the anterior aspect of both 1st ri bs, most probably benign findings as these were evident on prior x-ray and were negative on CT scan o f 08/24/2023. No new infiltrates nor pleural effusions. No fractures evident. No pneumothorax. IMPRESSION: No acute pulmonary findings. DATA REPOSITORY: RADIATION DOSE DELIVERED:
[2024-10-02] MEDS: Lidocaine 2% Viscous 15 ML CUP (14:58)
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
== END 2024-10-02 15:05 | disposition home or self-care (01) ==
PROVIDERS: Emergency Provider Physician Assistant; PCP Nurse Practitioner Family
DX: T54.91XA Toxic effect of unspecified corrosive substance, accidental (unintentional), initial encounter (principal); R07.81 Pleurodynia; J02.9 Acute pharyngitis, unspecified
CPT/HCPCS: 99284; 99283; 94640; 93005; 71046; 93010; J7613

== ENCOUNTER 2024-10-13 13:17 | Emergency (ER) | payer OTHER, SELFPAY ==
[2024-10-13 13:20] VITALS: BP 149/90; PULSE 78; RESP 18; TEMP 36.8; O2SAT 96
[2024-10-13 13:23] VITALS: BP 149/90; PULSE 78; RESP 18; TEMP 36.8; O2SAT 96
--- NOTE | 2024-10-13 13:30 | DI.RAD_ITS ---
Exam(s) XR CHEST 2V PA LATERAL EXAM: XR CHEST 2V PA LATERAL CLINICAL HISTORY: cough, SOB TECHNIQUE: 2D digital imaging was performed of the chest. Two images were obtained. PA and lateral views were obtained. COMPARISON: CR XR CHEST 2V PA LATERAL from 10/02/2024 FINDINGS: MEDIASTINUM: Normal. HEART: Normal. PULMONARY VASCULATURE: Normal. LUNGS: Clear. PLEURAL SPACE: No pleural effusion or pneumothorax. BONE:Within normal limits for the patient's age. OTHER FINDINGS:Normal. IMPRESSION: No acute pulmonary findings. DATA REPOSITORY: RADIATION DOSE DELIVERED:
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
[2024-10-13] MEDS: Albuterol HFA 8 GM 60 PUFF INH IH (14:43)
== END 2024-10-13 14:50 | disposition home or self-care (01) ==
PROVIDERS: Emergency Provider Physician Assistant; PCP Nurse Practitioner Family
DX: J06.9 Acute upper respiratory infection, unspecified (principal)
CPT/HCPCS: 99283; 71046

== ENCOUNTER 2024-10-21 13:31 | Outpatient (REF) | payer OTHER, SELFPAY ==
[2024-10-21 16:05] LABS: HCT 37.9 % (36.0-46.0); HGB 12.2 g/dL (11.2-15.7); MCH 28.6 pg (27.0-33.0); MCHC 32.2 % (32.0-36.0); MCV 89 fL (80-95); Platelet Count 396 10^3/uL (130-400); RBC 4.26 10^6/uL (3.93-5.22); RDW 12.8 % (11.7-14.6); RDW-SD 41.6 fL; WBC 7.34 10^3/uL (4.4-10.8)
[2024-10-21 16:26] LABS: ALT 28 U/L (14-59); AST 22 U/L (15-37); Albumin 3.6 g/dL (3.4-5.0); Alkaline Phosphatase 138 U/L (46-116); Anion Gap 8.7 mmol/L (3-11); BUN 12 mg/dL (7-18); Bilirubin, Total 0.3 mg/dL (0.2-1.0); CO2 25.3 mmol/L (21.0-32.0); CREATININE 0.8 mg/dL (0.55-1.02); Calcium 10.5 mg/dL (8.5-10.1); Chloride 107 mmol/L (98-107); Estimated GFR 88.05 (mL/min/1.73m2); Glucose 88 mg/dL (74-106); Potassium 4.4 mmol/L (3.5-5.1); Sodium 141 mmol/L (136-145); TSH (W/Ref FT4) 0.51 uIU/mL (0.36-3.74); Total Protein 7.5 g/dL (6.4-8.2)
== END 2024-10-21 13:32 | disposition home or self-care (01) ==
LOC: NCHCN 13:31
PROVIDERS: PCP Nurse Practitioner Family; Visit Provider Nurse Practitioner Family
DX: J30.2 Other seasonal allergic rhinitis (principal); R73.9 Hyperglycemia, unspecified; E04.1 Nontoxic single thyroid nodule; F41.8 Other specified anxiety disorders
CPT/HCPCS: 80053; 85027; 83036; 84443

== ENCOUNTER 2025-01-22 13:23 | Outpatient (CLI) | payer OTHER, SELFPAY ==
[2025-01-22 12:38] LABS: ALT 29 U/L (14-59); AST 16 U/L (15-37); Albumin 3.7 g/dL (3.4-5.0); Alkaline Phosphatase 136 U/L (46-116); Anion Gap 8.2 mmol/L (3-11); BUN 12 mg/dL (7-18); Bilirubin, Total 0.3 mg/dL (0.2-1.0); CO2 25.8 mmol/L (21.0-32.0); Calcium 10.3 mg/dL (8.5-10.1); Chloride 106 mmol/L (98-107); Glucose 103 mg/dL (74-106); Potassium 4.1 mmol/L (3.5-5.1); Sodium 140 mmol/L (136-145); Total Protein 7.4 g/dL (6.4-8.2); Vitamin D 25 Total 31 ng/mL (30-100)
== END 2025-01-22 13:24 | disposition home or self-care (01) ==
LOC: LBO 03-07 13:23
PROVIDERS: PCP Nurse Practitioner Family; Visit Provider Nurse Practitioner Family
DX: E83.52 Hypercalcemia (principal)
CPT/HCPCS: 36415; 80053; 82306; 83970

== ENCOUNTER 2025-03-27 12:07 | Outpatient (CLI) | payer OTHER, SELFPAY ==
[2025-03-27 13:02] LABS: Vitamin D 25 Total 37 ng/mL (30-100)
== END 2025-03-27 12:08 | disposition home or self-care (01) ==
LOC: LBO 12:07
PROVIDERS: PCP Nurse Practitioner Family; Visit Provider Nurse Practitioner Family
DX: E83.52 Hypercalcemia (principal)
CPT/HCPCS: 36415; 82306; 82330

== ENCOUNTER → 2025-04-30 00:17 | Outpatient (CLI) | payer OTHER, SELFPAY ==
--- NOTE | 2025-04-30 12:24 | DI.MAMMO_ITS ---
Exam(s) MAMMO SCREENING EXAM: MAMMO SCREENING CLINICAL HISTORY: Z12.31 Screening. TECHNIQUE: Bilateral full field digital CC and MLO mammographic images were obtained with 3D tomosynthesis and utilizing computer aided detection (CAD). COMPARISON: Prior mammograms were reviewed. FINDINGS: There has been no significant change in the appearance and distribution of the fibroglandular tissue. There are no CAD designations. There are no new spiculated masses nor malignant appearing microcalcification groups. There is no significant architectural distortion nor skin thickening-retraction. IMPRESSION: No radiographic evidence of malignancy. BI-RADS Category 1 - Negative Breast Density - Category A - The breast are almost entirely fatty. Breast density Category C or D implies that the patient has dense breast tissue. Dense breast tissue can make it harder to find cancer on a mammogram. Dense breast tissue is also associated with an increased risk of breast cancer. This information about the result of the mammogram report was provided to the patient to raise their awareness. Use this report when you speak with the patient about their risks for breast cancer, which includes their family history. At that time, you may recommend additional screening tests (Ultrasound or MRI) as these tests may add significant information. A negative radiographic report should not delay biopsy if a dominant or clinically suspicious mass is present. Up to ten percent of cancers are not identified on mammography. A negative report may reinforce clinical impression. Adenosis and dense breasts may obscure an underlying neoplasm. False positive reports average 6 to 10%. Patient will receive a letter notifying them of these results.
== END ==
LOC: DI 00:17
PROVIDERS: PCP Nurse Practitioner Family; Visit Provider Nurse Practitioner Family
DX: Z12.31 Encounter for screening mammogram for malignant neoplasm of breast (principal); R92.323 Mammographic fibroglandular density, bilateral breasts
CPT/HCPCS: 77063; 77067